=== PATIENT | female | born 1940 | race Caucasian/White ===

== ENCOUNTER 2016-07-07 15:42 | Inpatient (IN) | payer OTHER, MEDICARE ==
[~2016-07-07] VITALS: Ht 162.6 cm; Wt 99.0 kg
[2016-07-07 15:50] VITALS: BP 202/96; PULSE 104; RESP 18; TEMP 97.9; O2SAT 94
--- NOTE | 2016-07-07 16:54 | PD ---
HPI Chief Complaint: Fall Time Seen by Provider: 16:54 Travel History International Travel<30 days: No Contact w/Intl Traveler<30days: No Traveled to known affect area: No History of Present Illness HPI 76-year-old female with history of hypertension and diabetes presents to the emergency department for evaluation following a trip and fall. Patient was walking down her driveway which resulted in incline when she tripped over the hose striking her chin on the ground. Patient did not lose consciousness. She reports chin pain and some mild hand pain. She was assisted to standing by her and son. She had a brief left temporal headache but this is resolved. She has had no episodes of emesis since the incident. No focal deficit or weakness. No chest pain or tightness. Patient has no other symptoms to report. She is uncertain of her tetanus status. [facility] Past Medical History Diabetes: Yes Hypertension: Yes ?: Not Social History Alcohol Use: No Tobacco Use: No Substance Use: No Allergies-Medications (Allergen,Severity, Reaction): Coded Allergies: No Known Allergies (Unverified , 07/07/16) Reported Meds & Prescriptions Reported Meds & Active Scripts Active Reported Aspirin 81 Mg Tabdr 81 Mg PO DAILY Ditropan (Oxybutynin Chloride) 5 Mg Tab 5 Mg PO DAILY Lisinopril 20 Mg Tab 20 Mg PO DAILY Levothyroxine (Levothyroxine Sodium) 125 Mcg Tab 125 Mcg PO DAILY Verapamil (Verapamil HCl) 120 Mg Tab 120 Mg PO TID Glipizide 5 Mg Tab 5 Mg PO HS Take 30 minutes before a meal Glipizide 10 Mg Tab 10 Mg PO DAILY Take 30 minutes before a meal Metformin (Metformin HCl) 500 Mg Tab 500 Mg PO HS With meals Metformin (Metformin HCl) 1,000 Mg Tab 1,000 Mg PO BID With meals Review of Systems Except as stated in HPI: all other systems reviewed are Neg Physical Exam Narrative GENERAL: Well-nourished elderly female patient, ambulatory with a nonantalgic gait, in no acute distress SKIN: Warm and dry. Centimeter in diameter abrasion over the right forehead. There is a small abrasion of the bridge of the nose. There is a 2 cm through and through laceration inferior to the lip. Large hematoma and ecchymosis encompassing the chin. HEAD:Normocephalic. DENTAL: No loose teeth. The left maxillary incisor is chipped on the medial corner. No malocclusion. No tenderness elicited palpation along the mandible. EYES: Pupils equal and round. No scleral icterus. No injection or drainage. ENT: No nasal bleeding or discharge. Mucous membranes pink and moist. NECK: Trachea midline. No JVD. Cervical collar is placed. CARDIOVASCULAR: Regular rate and rhythm. No murmur appreciated. RESPIRATORY: No accessory muscle use. Clear to auscultation. Breath sounds equal bilaterally. GASTROINTESTINAL: Abdomen soft, non-tender, nondistended. Hepatic and splenic margins not palpable. MUSCULOSKELETAL: No obvious deformities. No clubbing. No cyanosis. No edema. NEUROLOGICAL: Awake and alert. No obvious cranial nerve deficits. Motor grossly within normal limits. Normal speech. PSYCHIATRIC: Appropriate mood and affect; insight and judgment normal. Data Data Last Documented VS Vital Signs Date Time Temp Pulse Resp B/P Pulse Ox O2 Delivery O2 Flow Rate FiO2 07/07/16 18:46 86 20 172/89 97 Room Air 07/07/16 15:[address] Brain W/O Iv Contrast(Rout) (07/07/16 ) Ct Facial Bones W/O Iv Cont (07/07/16 ) Ct Cerv Spine W/O Contrast (07/07/16 ) Tetanus/Diphtheria Tox Adult (Tetanus/Di (07/07/16 17:00) Lidocai-Epi 2%-1:100,000 Inj (Xylocaine- (07/07/16 17:00) Basic Metabolic Panel (Bmp) (07/07/16 17:26) Complete Blood Count With Diff (07/07/16 17:26) Prothrombin Time / Inr (Pt) (07/07/16 17:26) Act Partial Throm Time (Ptt) (07/07/16 17:26) Urinalysis - C+S If Indicated (07/07/16 17:26) Iv Access Insert/Monitor (07/07/16 17:26) Ecg Monitoring (07/07/16 17:26) Oximetry (07/07/16 17:26) Sodium Chloride 0.9% Flush (Ns Flush) (07/07/16 17:30) Electrocardiogram (07/07/16 17:26) Consult Neurosurgery (07/07/16 ) Ondansetron Inj (Zofran Inj) (07/07/16 18:15) Urine Culture (07/07/16 17:45) Ceftriaxone Inj (Rocephin Inj) (07/07/16 18:30) Admit Order (Ed Use Only) (07/07/16 19:08) Labs Laboratory Tests Test 07/07/16 17:45 White Blood Count 11.0 TH/MM3 Red Blood Count 4.58 MIL/MM3 Hemoglobin 12.1 GM/DL Hematocrit 37.5 % Mean Corpuscular Volume 81.8 FL Mean Corpuscular Hemoglobin 26.4 PG Mean Corpuscular Hemoglobin 32.3 % Concent Red Cell Distribution Width 15.2 % Platelet Count 264 TH/MM3 Mean Platelet Volume 8.5 FL Neutrophils (%) (Auto) 73.1 % Lymphocytes (%) (Auto) 18.9 % Monocytes (%) (Auto) 6.2 % Eosinophils (%) (Auto) 0.9 % Basophils (%) (Auto) 0.9 % Neutrophils # (Auto) 8.0 TH/MM3 Lymphocytes # (Auto) 2.1 TH/MM3 Monocytes # (Auto) 0.7 TH/MM3 Eosinophils # (Auto) 0.1 TH/MM3 Basophils # (Auto) 0.1 TH/MM3 CBC Comment DIFF FINAL Differential Comment Prothrombin Time 10.9 SEC Prothromb Time International 1.0 RATIO Ratio Activated Partial 24.9 SEC Thromboplast Time Urine Color LIGHT-YELLOW Urine Turbidity CLEAR Urine pH 5.0 Urine Specific [place] 1.009 Urine Protein TRACE mg/dL Urine Glucose (UA) NEG mg/dL Urine Ketones 10 mg/dL Urine Occult Blood NEG Urine Nitrite NEG Urine Bilirubin NEG Urine Urobilinogen LESS THAN 2.0 MG/DL Urine Leukocyte Esterase LARGE Urine RBC 1 /hpf Urine WBC 33 /hpf Urine Squamous Epithelial 1 /hpf Cells Microscopic Urinalysis Comment CULTURE INDICATED Sodium Level 140 MEQ/L Potassium Level 4.0 MEQ/L Chloride Level 104 MEQ/L Carbon Dioxide Level 22.3 MEQ/L Anion Gap 14 MEQ/L Blood Urea Nitrogen 21 MG/DL Creatinine 1.24 MG/DL Estimat Glomerular Filtration 42 ML/MIN Rate Random Glucose 160 MG/DL Calcium Level 9.3 MG/DL [facility] Medical Decision Making Medical Screen Exam Complete: Yes Emergency Medical Condition: Yes Medical Record Reviewed: Yes Differential Diagnosis Facial fracture versus contusion versus laceration superficial versus deep versus intracranial hemorrhage versus concussion Narrative Course 76 year-old female presents to emergency department for evaluation following a fall. Patient appears well and without distress. She has no focal deficits or weakness. She does have a through and through laceration of the chin with significant hematoma over the chin. There is no malocclusion. Neuro exam is nonfocal. CT imaging of the cervical spine shows degenerative changes with no acute bony abnormality. CT imaging of the facial bones is without acute fracture. CT imaging of the head shows acute subarachnoid hemorrhage along without it and extending along the tentorium. Thin 3 mm or 4 mm left temporal or parietal subdural hemorrhage. Follow-up recommended with no evidence of significant mass effect or shift. I discussed the patient with Dr. Rosa, neurosurgeon space systems operations superintendent. He requests admission to the ICU with a consult to him. Dr. Nicholson, trauma surgeon also came and evaluated the patient but does not feel that, surgery needs to follow at this time. A call has been placed to the fire alarm repairer. I am awaiting a return call. [id number] elen saldana. He requests the patient be admitted to [facility]. Procedures Procedure Narrative LACERATION LOCATION: Inferior to the lower lip LENGTH: 2 cm NUMBER OF STITCHES/NADINE: 5 sutures REPAIR: The area of the laceration was prepped with Betadine and sterilely draped. The laceration was infiltrated with 1% lidocaine. The wound was copiously irrigated and explored without evidence of foreign body, tendon injury or neurovascular injury. The wound was closed using 5-0 Vicryl. This was a double layer repair. The patient was advised to keep the dressing clean and dry. Patient tolerated the procedure well. Diagnosis Primary Impression: Subarachnoid bleed Additional Impressions: Subdural bleeding Hypertension Qualified Code: I10 - Essential hypertension Diabetes Qualified Code: E11.8 - Type 2 diabetes mellitus with complication, unspecified moth exterminator insulin use status UTI (urinary tract infection) Qualified Code: N39.0 - Urinary tract infection without hematuria, site unspecified Admitting Information Admitting Physician Requests: Admit Condition: Stable GonzalezTho manriquezizabella SMITH Jul 07, 2016 16:54
[2016-07-07] MEDS ORDERED: LIDOCAINE 2%/EPINEPHrine 1:100,000 30ML MDV INFIL ONE (17:00)
[2016-07-07] MEDS ORDERED: TETANUS/DIPHTHERIA TOXOID ADULT 0.5 ML VIAL IM ONE (17:00)
[2016-07-07 17:05] VITALS: BP 189/89; PULSE 108; RESP 18; O2SAT 97
[2016-07-07] MEDS ORDERED: GLIP10TA6 PO (17:05)
[2016-07-07] MEDS ORDERED: ASPI1TAB69 PO (17:05)
[2016-07-07] MEDS ORDERED: METF1000 PO (17:05)
[2016-07-07] MEDS ORDERED: LISI-515 PO (17:05)
[2016-07-07] MEDS ORDERED: GLIP5TAB8 PO (17:05)
[2016-07-07] MEDS ORDERED: OXYB5TAB10 PO (17:05)
[2016-07-07] MEDS ORDERED: VERA120T3 PO (17:05)
[2016-07-07] MEDS ORDERED: METF500T PO (17:05)
[2016-07-07] MEDS ORDERED: LEVO125T4 PO (17:05)
--- NOTE | 2016-07-07 17:26 | RADRPT ---
EXAM DATE/TIME: 07/07/2016 17:13 [facility] COMPARISON: No previous studies available for comparison. INDICATIONS : Trip and fall today; head, neck, and facial pain. RADIATION DOSE: 32.45 CTDIvol (mGy) MEDICAL HISTORY : Hypertension. SURGICAL HISTORY : None. ENCOUNTER: Initial ACUITY: 1 day PAIN SCALE: 4/10 LOCATION: cranial TECHNIQUE: Multiple contiguous axial images were obtained of the head. Using automated exposure control and adj ustment of the mA and/or kV according to patient size, radiation dose was kept as low as reasonably a chievable to obtain optimal diagnostic quality images. FINDINGS: CEREBRUM: The ventricles are normal for age. No evidence of midline shift, mass lesion or acute infarction. N o extra-axial fluid collections are seen. There is subarachnoid hemorrhage along the falx and extendi ng along the tentorium. Thin crescentic area of increased density hemorrhages noted along the left te mporal parietal region POSTERIOR FOSSA: The cerebellum and brainstem are intact. The 4th ventricle is midline. The cerebellopontine angle i s unremarkable. EXTRACRANIAL: The visualized portion of the orbits is intact. SKULL: The calvaria is intact. No evidence of skull fracture. CONCLUSION: Acute subarachnoid hemorrhage along the falx and extending along the tentorium. Thin 3 or 4 mm left temporal toward parietal subdural hemorrhage acute. Followup recommended no evide nce of significant mass effect or shift. Guy Byers MD on July 07, 2016 at 17:22 Board Certified Radiologist. This report was verified electronically.
[2016-07-07] MEDS ORDERED: SODIUM CHLORIDE 0.9% FLUSH 5 ML FLUSH IVF PRN (17:30)
--- NOTE | 2016-07-07 17:38 | RADRPT ---
EXAM DATE/TIME: 07/07/2016 17:13 [facility] COMPARISON: No previous studies available for comparison. INDICATIONS : Trip and fall today; head, neck, and facial pain. RADIATION DOSE: 24.90 CTDIvol (mGy) MEDICAL HISTORY : Hypertension. SURGICAL HISTORY : None. ENCOUNTER: Initial ACUITY: 1 day PAIN SCALE: 4/10 LOCATION: neck TECHNIQUE: Volumetric scanning of the cervical spine was performed. Multiplanar reconstructions in the sagittal, coronal and oblique axial planes were performed. Using automated exposure control and adjustment o f the mA and/or kV according to patient size, radiation dose was kept as low as reasonably achievable to obtain optimal diagnostic quality images. FINDINGS: There is multilevel degenerative change degenerative disc disease C3-C7 with varying degrees of circu mferential hypertrophic spurring inclusive of uncovertebral hypertrophy as well as posterior central osteophyte disc complexes which are most prominent at C4-7 with relative spinal stenosis. Alignment i s normal with no evidence fracture, compression, subluxation, or destructive change. CONCLUSION: Extensive degenerative changes. No acute bony injury. Guy Byers MD on July 07, 2016 at 17:33 Board Certified Radiologist. This report was verified electronically.
--- NOTE | 2016-07-07 17:41 | RADRPT ---
EXAM DATE/TIME: 07/07/2016 17:13 [facility] COMPARISON: No previous studies available for comparison. INDICATIONS : Trip and fall today; head, neck, and facial pain. RADIATION DOSE: 59.90 CTDIvol (mGy) MEDICAL HISTORY : Hypertension. SURGICAL HISTORY : None. ENCOUNTER: Initial ACUITY: 1 day PAIN SCORE: 4/10 LOCATION: facial TECHNIQUE: Volumetric scanning of the facial bones was performed. Using automated exposure control and adjustme nt of the mA and/or kV according to patient size, radiation dose was kept as low as reasonably achiev able to obtain optimal diagnostic quality images. FINDINGS: ORBITS: The orbital and infraorbital osseous structures are intact. The retroconal structures have a normal configuration. No radiopaque foreign bodies are seen. NASAL BONE: The nasal bone and maxillary spine are intact nasal septum is deviated to the right ZYGOMATIC ARCHES: Symmetric without evidence of fracture. SINUSES: The maxillary, ethmoid and frontal sinuses are intact. No air-fluid levels seen. NASAL CAVITY: The nasal septum is intact and midline. The lacrimal ducts are intact. SOFT TISSUES: No radiopaque foreign bodies seen. Mild soft tissue swelling superficial to the mid and right mandibl e. This. INTRACRANIAL: No intracranial air seen. CRIBIFORM PLATE: Grossly intact. CONCLUSION: No acute bony injury Guy Byers MD on July 07, 2016 at 17:37 Board Certified Radiologist. This report was verified electronically.
[2016-07-07 18:04] LABS: BASOPHIL # 0.1 TH/MM3 (0-0.2); BASOPHIL % 0.9 % (0.0-2.0); EOSINOPHIL # 0.1 TH/MM3 (0-0.4); EOSINOPHIL % 0.9 % (0.0-4.0); HEMATOCRIT 37.5 % (35.0-46.0); HEMO FLAGS DIFF FINAL; LYMPH % 18.9 % (9.0-44.0); LYMPHOCYTE # 2.1 TH/MM3 (1.0-4.8); MEAN CELL VOLUME 81.8 FL (80.0-100.0); MEAN CORPUSCULAR HEMOGLOBIN 26.4 PG (27.0-34.0); MEAN CORPUSCULAR HGB CONC 32.3 % (32.0-36.0); MONO % 6.2 % (0.0-8.0); NEUT % 73.1 % (16.0-70.0); PLATELET COUNT 264 TH/MM3 (150-450); RED BLOOD COUNT 4.58 MIL/MM3 (4.00-5.30); RED CELL DISTRIBUTION WIDTH 15.2 % (11.6-17.2)
--- NOTE | 2016-07-07 18:10 | PD.CONS ---
[facility] Service Neurosurg Consult Requested By Dr Pringle Reason for Consult TBI ICH Primary Care Physician No Primary Care Physician History of Present Illness This is a 76-year-old female with history of arterial hypertension and diabetes , who presents to the emergency department after a trip and fall. She was walking down her driveway which resulted in incline when she tripped over the hose striking her chin on the ground. Patient did not lose consciousness. No seizure activity noted No tongue bitting. No incontinence of stool or urine, She reports chin pain and some mild hand pain. She was assisted by her and son and brought to the ER. She had a left temporal headaches. No nauseas or emesis. No focal deficit or weakness. No chest pain or tightness. No SOB. Neurosurgical consultation requested Review of Systems Constitutional: DENIES: Diaphoretic episodes, Fatigue, Fever, Weight gain, Weight loss, Chills, Dizziness, Change in appetite, Night Sweats Endocrine: DENIES: Abnorml menstrual pattern, Heat/cold intolerance, Polydipsia , Polyuria, Polyphagia Eyes: DENIES: Blurred vision, Diplopia, Eye inflammation, Eye pain, Vision loss , Photosensitivity, Double Vision Ears, nose, mouth, throat: DENIES: Tinnitus, Hearing loss, Vertigo, Nasal discharge, Oral lesions, Throat pain, Hoarseness, Ear Pain, Running Nose, Epistaxis, Sinus Pain, Toothache, Odynophagia Respiratory: DENIES: Apneas, Cough, Snoring, Wheezing, Hemoptysis, Sputum production, Shortness of breath Cardiovascular: DENIES: Chest pain, Palpitations, Syncope, Dyspnea on Exertion , PND, Lower Extremity Edema, Orthopnea, Claudication Gastrointestinal: DENIES: Abdominal pain, Black stools, Bloody stools, Constipation, Diarrhea, Nausea, Vomiting, Difficulty Swallowing, Anorexia Genitourinary: DENIES: Abnormal vaginal bleeding, Dysmenorrhea, Dyspareunia, Sexual dysfunction, Urinary frequency, Urinary incontinence, Urgency, Hematuria , Dysuria, Nocturia, Vaginal discharge Musculoskeletal: DENIES: Joint pain, Muscle aches, Stiffness, Joint Swelling, Back pain, Neck pain Integumentary: DENIES: Abnormal pigmentation, Pruritus, Rash, Nail changes, Breast masses, Breast skin changes, Nipple discharge Hematologic/lymphatic: DENIES: Bruising, Lymphadenopathy Immunologic/allergic: DENIES: Eczema, Urticaria Neurologic: COMPLAINS OF: Headache, DENIES: Abnormal gait, Localized weakness , Paresthesias, Seizures, Speech Problems, Tremor, Poor Balance Psychiatric: DENIES: Anxiety, Confusion, Mood changes, Depression, Hallucinations, Agitation, Suicidal Ideation, Homicidal Ideation, Delusions Past Family Social History Allergies: Coded Allergies: No Known Allergies (Unverified , 07/07/16) Past Medical History Diabetes: Yes Hypertension: Yes Reported Medications Aspirin 81 Mg Tabdr 81 Mg PO DAILY Ditropan (Oxybutynin Chloride) 5 Mg Tab 5 Mg PO DAILY Lisinopril 20 Mg Tab 20 Mg PO DAILY Levothyroxine (Levothyroxine Sodium) 125 Mcg Tab 125 Mcg PO DAILY Verapamil (Verapamil HCl) 120 Mg Tab 120 Mg PO TID Glipizide 5 Mg Tab 5 Mg PO HS Take 30 minutes before a meal Glipizide 10 Mg Tab 10 Mg PO DAILY Take 30 minutes before a meal Metformin (Metformin HCl) 500 Mg Tab 500 Mg PO HS With meals Metformin (Metformin HCl) 1,000 Mg Tab 1,000 Mg PO BID Active Ordered Medications Current Medications Tetanus/ Diphtheria Toxoids (Tetanus/ Diphtheria Tox Adult) 0.5 ml ONCE ONCE IM Last administered on 07/07/16at 18:02; Start 07/07/16 at 17:00; Stop at 17:01; Status DC Lidocaine/ Epinephrine (Xylocaine-Epi 2%-1:100,000 Inj) 10 ml ONCE ONCE INFIL Last administered on 07/07/16at 17:00; Start 07/07/16 at 17:00; Stop 07/07/16 at 17:01; Status DC IV Flush (NS Flush) 2 ml UNSCH PRN IVF FLUSH AFTER USING IV ACCESS; Start at 17:30; Stop 07/07/16 at 19:46; Status DC Ondansetron HCl 4 mg 4 mg ONCE ONCE IV PUSH Last administered on 07/07/16at 18 :21; Start 07/07/16 at 18:15; Stop 07/07/16 at 18:16; Status DC Ceftriaxone Sodium/Sodium Chloride (Rocephin Inj/NS Inj) 100 ml @ 200 mls/hr ONCE ONCE IV Last administered on 07/07/16at 18:45; Start 07/07/16 at 18:30; Stop 07/07/16 at 18:59; Status DC IV Flush (NS Flush) 2 ml UNSCH PRN FLUSH FLUSH AFTER USING IV ACCESS; Start at 19:45 IV Flush (NS Flush) 2 ml BID FLUSH Last administered on 07/07/16at 21:00; Start 07/07/16 at 21:00 Naloxone HCl (Narcan Inj) 0.4 mg UNSCH PRN IV SEE LABEL COMMENTS; Start at 19:45 Levothyroxine Sodium (Synthroid) 125 mcg DAILY@06 PO ; Start 07/08/16 at 06:00 Lisinopril (Prinivil) 20 mg DAILY PO ; Start 07/08/16 at 09:00 Oxybutynin Chloride (Ditropan) 5 mg DAILY PO ; Start 07/08/16 at 09:00 Verapamil HCl (Isoptin) 120 mg TID PO ; Start 07/08/16 at 09:00 Hydralazine HCl (Apresoline Inj) 10 mg Q30M PRN IV PUSH bp>140/80 Last administered on 07/07/16at 21:10; Start 07/07/16 at 20:00 Clonidine (Catapres) 0.1 mg Q6H PRN PO bp>140/80 Last administered on at 21:10; Start 07/07/16 at 20:00 Acetaminophen/ Codeine Phosphate (Tylenol-Codeine #3) 1 tab Q4H PRN PO pain ; Start 07/07/16 at 20:00 Dextrose (D50w (Vial) Inj) 25 ml UNSCH PRN IV PUSH HYPOGLYCEMIA-SEE COMMENTS; Start 07/07/16 at 21:30 Glucagon (Glucagon Inj) 1 mg UNSCH PRN OTHER HYPOGLYCEMIA-SEE COMMENTS; Start 07/07/16 at 21:30 Insulin Aspart (NovoLOG SUPPLEMENTAL SCALE) 1 ACHS SLIDING SCALE SQ Last administered on 07/07/16at 21:47; Start 07/07/16 at 21:29 Family History Non contributory Social History Alcohol Use: No Tobacco Use: No Substance Use: No Physical Exam Vital Signs Vital Signs Date Time Temp Pulse Resp B/P Pulse Ox O2 Delivery O2 Flow Rate FiO2 07/07/16 17:05 108 18 189/89 97 07/07/16 15:50 97.9 104 18 202/96 94 Room Air Physical Exam The patient is alert, awake and oriented to time, place and person. Speech is fluent. Laceration to lower lip Cranial nerve examination demonstrates the pupils to be equal, round, and reactive to light. Extra-ocular movements are intact. Facial motor and sensory function are normal and symmetrical. Gross hearing is decreased. The uvula is midline and elevates symmetrically with the soft palate. Sternocleidomastoid and trapezius muscles have normal and symmetrical strength. Other cranial nerves are intact. Neck is soft and supple. Cervical spine has a good range of motion in anterior flexion, extension, lateral bending, and rotation without pain. There is no tenderness to palpation to the spinous processes or paraspinal muscles. Muscle testing reveals normal bulk and tone overall without rigidity, spasticity , fasciculations, or atrophy. Muscle strength is 5/5 in all muscle groups of both upper extremities including deltoid, biceps, triceps, brachioradialis, wrist extension and photography intern. In the lower extremities, strength is 5/5 in both iliopsoas, quadriceps, hamstrings, plantar flexion, dorsiflexion, and extensor hallicus longus. Sensory examination is intact to light touch and sharp/dull discrimination in both the upper and lower extremities, symmetrically. Deep tendon reflexes are 2+ and symmetrical in the biceps, triceps, and brachioradialis, bilaterally, in the upper extremities. In the lower extremities , the patellar and Achilles are 2+, bilaterally. There is a bilateral plantar flexion response. Hoffmanns sign is negative. There is no clonus or other abnormal reflexes noted. Cerebellar examination is intact to [id number] test, rapid rhythmic alternating motion. There is no dysmetria, dysdiadochokinesia, truncal ataxia, or tremor. Laboratory Laboratory Tests Test 07/07/16 17:45 White Blood Count 11.0 Red Blood Count 4.58 Hemoglobin 12.1 Hematocrit 37.5 Mean Corpuscular Volume 81.8 Mean Corpuscular Hemoglobin 26.4 Mean Corpuscular Hemoglobin 32.3 Concent Red Cell Distribution Width 15.2 Platelet Count 264 Mean Platelet Volume 8.5 Neutrophils (%) (Auto) 73.1 Lymphocytes (%) (Auto) 18.9 Monocytes (%) (Auto) 6.2 Eosinophils (%) (Auto) 0.9 Basophils (%) (Auto) 0.9 Neutrophils # (Auto) 8.0 Lymphocytes # (Auto) 2.1 Monocytes # (Auto) 0.7 Eosinophils # (Auto) 0.1 Basophils # (Auto) 0.1 CBC Comment DIFF FINAL Differential Comment Result Diagram: 07/07/16 1745 Imaging Last Impressions Maxillofacial CT 07/07/16 0000 Signed Impressions: Service Date/Time: Thursday, July 07, 2016 17:13 - CONCLUSION: No acute bony injury Guy Byers MD Head CT 07/07/16 0000 Signed Impressions: Service Date/Time: Thursday, July 07, 2016 17:13 - CONCLUSION: Acute subarachnoid hemorrhage along the falx and extending along the tentorium. Thin 3 or 4 mm left temporal toward parietal subdural hemorrhage acute. Followup recommended no evidence of significant mass effect or shift. Guy Byers MD Cervical Spine CT 07/07/16 0000 Signed Impressions: Service Date/Time: Thursday, July 07, 2016 17:13 - CONCLUSION: Extensive degenerative changes. No acute bony injury. Guy Byers MD Attending Statement Neuro. I have reviewed his clinical and radiological findings. Start neuro checks in a serial fashion. A placement of a ICP monitoring is not indicated at this time Recommend to repeat the CT of the brain in 24 hours Laceration. To be repaired by ER physician Respiratory. Aggressive pulmonary toilette, nasotracheal suction, and breathing treatments with nebulizers. PT and OT evaluation Nutrition. NPO Renal. monitor closely urine output, BUN and creatinine Endocrine. Monitor serial Acu checks and SSI as needed in detail ID monitor for signs of infection Protonix for stress ulcer prophylaxis Fco hose and SCD's for DVT prophylaxis Joe Rosa MD Jul 07, 2016 18:10
[2016-07-07 18:13] LABS: BLOOD, URINE NEG (NEG); COMMENT (UR) CULTURE INDICATED; CULTURE IF INDICATED CULTURE INDICATED; GLUCOSE,URINE NEG (NEG); KETONE, URINE 10 mg/dL (NEG); NITRITE,URINE NEG (NEG); SQUAMOUS EPITHELIAL CELL URINE 1 /hpf (0-5); URINE COLOR LIGHT-YELLOW (YELLW/STRAW)
[2016-07-07] MEDS ORDERED: ONDANSETRON HCL 4 MG/2 ML VIAL IV PUSH ONE (18:15)
[2016-07-07 18:17] LABS: APTT (PATIENT) 24.9 SEC (24.3-30.1); PROTHROMBIN TIME - PATIENT 10.9 SEC (9.8-11.6)
[2016-07-07] MEDS ORDERED: cefTRIAXone INJ 1,000 MG in SODIUM CHLORIDE 0.9% INJ 100 ML IV ONE (18:30)
[2016-07-07 18:35] LABS: BICARBONATE 22.3 MEQ/L (21.0-32.0)
[2016-07-07 18:46] VITALS: BP 172/89; PULSE 86; RESP 20; O2SAT 97
[2016-07-07] MEDS ORDERED: SODIUM CHLORIDE 0.9% FLUSH 5 ML FLUSH FLUSH PRN (19:45)
[2016-07-07] MEDS ORDERED: NALOXONE HCL 0.4 MG/ML AMP IV PRN (19:45)
[2016-07-07] MEDS ORDERED: ACETAMINOPHEN/CODEINE 300 MG/30 MG TAB PO PRN (20:00)
[2016-07-07 21:00] VITALS: BP 185/76; PULSE 91; RESP 18; O2SAT 96
[2016-07-07] MEDS: SODIUM CHLORIDE 0.9% FLUSH 5 ML FLUSH FLUSH SCH (21:00)
[2016-07-07] MEDS: hydrALAZINE HCL 20 MG/ML VIAL IV PUSH PRN (21:10)
[2016-07-07] MEDS: cloNIDine HCL 0.1 MG TAB PO PRN (21:10)
--- NOTE | 2016-07-07 21:24 | HHI.HP ---
[facility] Primary Care Physician No Primary Care Physician Admission Diagnosis SAH/SDH s/p fall; Chin laceration Diagnoses: Chief Complaint: Fell down Travel History International Travel<30 Days: No Contact w/Intl Traveler <30 Da: No Traveled to Known Affected Are: No History of Present Illness History from patient with her at the bedside, ER physician communication , and review of medical records. Patient reported that she was trying to walk her dog and taking him to the golf cart in her backyard. As she was walking, she tripped over a water hose and she fell face forward landing on the concrete with her chin. She denies loss of consciousness. She denies hitting her back of the head. However she did hit her chin pretty badly and had a bruise on her right eyebrow area. She denies any premonitory symptoms prior to the fall such as chest pain/ palpitations/dizziness/focal weakness. She denies any prior history of syncopal episodes. In the emergency room, patient's imaging studies revealed subarachnoid hemorrhage along the falx and extending along the tentorium. There was a thin 3 or 4 mm left temporal to what prior subdural hemorrhage as well. Patient was evaluated by neurosurgery in ER. Review of Systems Constitutional: DENIES: Fever, Weight gain, Weight loss, Chills, Dizziness Respiratory: DENIES: Apneas, Cough, Wheezing, Hemoptysis, Sputum production, Shortness of breath Cardiovascular: DENIES: Chest pain, Palpitations, Syncope, Dyspnea on Exertion , PND, Lower Extremity Edema Gastrointestinal: DENIES: Abdominal pain, Black stools, Bloody stools, Constipation, Diarrhea, Nausea, Vomiting Genitourinary: DENIES: Urinary frequency, Urinary incontinence, Urgency, Hematuria, Dysuria Musculoskeletal: COMPLAINS OF: Joint pain, DENIES: Muscle aches, Stiffness, Joint Swelling, Back pain, Neck pain Integumentary: DENIES: Abnormal pigmentation, Pruritus, Rash, Nail changes, Breast masses, Breast skin changes, Nipple discharge Hematologic/lymphatic: COMPLAINS OF: Bruising Neurologic: DENIES: Abnormal gait, Headache, Localized weakness, Paresthesias, Seizures, Poor Balance Past Family Social History Past Medical History Hypertension Diabetes Hypothyroidism Obesity Past Surgical History 2 Reported Medications Patient's medications listed on EMRreviewed patient stated that someone did go through that with her. Allergies: Coded Allergies: No Known Allergies (Unverified , 07/07/16) Family History Denies family history of any medical conditions. She stated her mom actually lived to be in her 90s. actually after a fall which resulted in intracranial bleed. She has 5 other siblings. One sister had multiple medical issues. However patient does not know the details and mostly attributed her diseases to her lifestyle. Social History Denies any smoking/alcohol abuse/drug abuse. Lives with her . Physical Exam Vital Signs Vital Signs Date Time Temp Pulse Resp B/P Pulse Ox O2 Delivery O2 Flow Rate FiO2 07/07/16 18:46 86 20 172/89 97 Room Air 07/07/16 17:05 108 18 189/89 97 07/07/16 15:50 97.9 104 18 202/96 94 Room Air Physical Exam GENERAL: This is a well-nourished, well-developed patient, in no apparent distress. SKIN: Superficial ecchymosis at chin on the right side. Right eyebrow area with skin laceration. HEAD: Atraumatic. Normocephalic. No temporal or scalp tenderness. EYES: Pupils equal round and reactive. Extraocular motions intact. No scleral icterus. No injection or drainage. ENT: Nose without bleeding, purulent drainage or septal hematoma. Airway patent. Lips swollen. NECK: Trachea midline. No JVD Supple, nontender, no meningeal signs. CARDIOVASCULAR: Regular rate and rhythm without murmurs, gallops, or rubs. RESPIRATORY: Clear to auscultation. Breath sounds equal bilaterally. No wheezes , rales, or rhonchi. GASTROINTESTINAL: Abdomen soft, non-tender, nondistended.No guarding Musculoskeletal: No calf asymmetry or edema. NEUROLOGICAL: Awake and alert. Motor and sensory grossly within normal limits. Normal speech. Laboratory Laboratory Tests Test 07/07/16 17:45 White Blood Count 11.0 Red Blood Count 4.58 Hemoglobin 12.1 Hematocrit 37.5 Mean Corpuscular Volume 81.8 Mean Corpuscular Hemoglobin 26.4 Mean Corpuscular Hemoglobin 32.3 Concent Red Cell Distribution Width 15.2 Platelet Count 264 Mean Platelet Volume 8.5 Neutrophils (%) (Auto) 73.1 Lymphocytes (%) (Auto) 18.9 Monocytes (%) (Auto) 6.2 Eosinophils (%) (Auto) 0.9 Basophils (%) (Auto) 0.9 Neutrophils # (Auto) 8.0 Lymphocytes # (Auto) 2.1 Monocytes # (Auto) 0.7 Eosinophils # (Auto) 0.1 Basophils # (Auto) 0.1 CBC Comment DIFF FINAL Differential Comment Prothrombin Time 10.9 Prothromb Time International 1.0 Ratio Activated Partial 24.9 Thromboplast Time Urine Color LIGHT-YELLOW Urine Turbidity CLEAR Urine pH 5.0 Urine Specific [place] 1.009 Urine Protein TRACE Urine Glucose (UA) NEG Urine Ketones 10 Urine Occult Blood NEG Urine Nitrite NEG Urine Bilirubin NEG Urine Urobilinogen LESS THAN 2.0 Urine Leukocyte Esterase LARGE Urine RBC 1 Urine WBC 33 Urine Squamous Epithelial 1 Cells Microscopic Urinalysis Comment CULTURE INDICATED Sodium Level 140 Potassium Level 4.0 Chloride Level 104 Carbon Dioxide Level 22.3 Anion Gap 14 Blood Urea Nitrogen 21 Creatinine 1.24 Estimat Glomerular Filtration 42 Rate Random Glucose 160 Calcium Level 9.3 Date/Time Procedure Status Source Growth 07/07/16 17:45 Urine Culture Received Urine Clean Catch Pending Result Diagram: 07/07/16 1745 07/07/16 1745 Imaging Last [address] 07/07/16 0000 Signed Impressions: Service Date/Time: Thursday, July 07, 2016 17:13 - CONCLUSION: No acute bony injury Guy Byers MD Head CT 07/07/16 0000 Signed Impressions: Service Date/Time: Thursday, July 07, 2016 17:13 - CONCLUSION: Acute subarachnoid hemorrhage along the falx and extending along the tentorium. Thin 3 or 4 mm left temporal toward parietal subdural hemorrhage acute. Followup recommended no evidence of significant mass effect or shift. Guy Byers MD Cervical Spine CT 07/07/16 0000 Signed Impressions: Service Date/Time: Thursday, July 07, 2016 17:13 - CONCLUSION: Extensive degenerative changes. No acute bony injury. Guy Byers MD Physician Certification 2 Midnight Certification Type: Admission for Inpatient Services Order for Inpatient Services The services are ordered in accordance with Medicare regulations or non- Medicare payer requirements, as applicable. In the case of services not specified as inpatient-only, they are appropriately provided as inpatient services in accordance with the 2-midnight benchmark. Estimated LOS (days): 3 days is the estimated time the patient will need to remain in the hospital, assuming treatment plan goals are met and no additional complications. Post-Hospital Plan: Home Lady Pringle MD Jul 07, 2016 21:24
[2016-07-07] MEDS ORDERED: DEXTROSE 50% IN WATER 50 ML VIAL(D50) IV PUSH PRN (21:30)
[2016-07-07] MEDS ORDERED: GLUCAGON 1 MG/ML VIAL OTHER PRN (21:30)
[2016-07-07 21:38] VITALS: BP 116/72; PULSE 87; RESP 18; O2SAT 97
[2016-07-07] MEDS: INSULIN ASPART SUPPLEMENTAL SCALE SQ SCH (21:47)
[2016-07-08] VITALS (13 sets, daily range): BP systolic 129–151; BP diastolic 59–66; PULSE 75–95; RESP 22–29; TEMP 97.9–98.6; O2SAT 90–97
[2016-07-08 04:28] LABS: AUTOMATED NEUTROPHIL # 5.1 TH/MM3 (1.8-7.7); BASOPHIL % 0.3 % (0.0-2.0); EOSINOPHIL % 0.2 % (0.0-4.0); HEMATOCRIT 32.5 % (35.0-46.0); HEMO FLAGS DIFF FINAL; LYMPH % 19.5 % (9.0-44.0); LYMPHOCYTE # 1.4 TH/MM3 (1.0-4.8); MEAN CELL VOLUME 80.5 FL (80.0-100.0); MEAN CORPUSCULAR HEMOGLOBIN 25.7 PG (27.0-34.0); MONO % 8.9 % (0.0-8.0); NEUT % 71.1 % (16.0-70.0); PLATELET COUNT 203 TH/MM3 (150-450); RED BLOOD COUNT 4.04 MIL/MM3 (4.00-5.30); RED CELL DISTRIBUTION WIDTH 15.2 % (11.6-17.2); WHITE BLOOD COUNT 7.2 TH/MM3 (4.0-11.0)
[2016-07-08 04:49] LABS: BICARBONATE 25.4 MEQ/L (21.0-32.0); POTASSIUM 4.1 MEQ/L (3.5-5.1)
[2016-07-08] MEDS: LEVOTHYROXINE SODIUM 125 MCG TAB PO SCH (06:00)
[2016-07-08] MEDS: INSULIN ASPART SUPPLEMENTAL SCALE SQ SCH ×4 (06:15→20:14)
[2016-07-08] MEDS: LISINOPRIL 20 MG TAB PO SCH (08:45)
[2016-07-08] MEDS: OXYBUTYNIN CHLORIDE 5 MG TAB PO SCH (08:45)
[2016-07-08] MEDS: VERAPAMIL HCL 120 MG TAB PO SCH ×3 (08:45→17:26)
[2016-07-08] MEDS: SODIUM CHLORIDE 0.9% FLUSH 5 ML FLUSH FLUSH SCH ×2 (09:00→20:14)
--- NOTE | 2016-07-08 11:41 | EKG ---
Date Performed: 07/07/2016 Time Performed: 18:02:41 PTAGE: 76 years EKG: Sinus rhythm NORMAL ECG NO PREVIOUS TRACING DOCTOR: Tani Tyson Interpretating Date/Time 07/08/2016 11:38:58
--- NOTE | 2016-07-08 11:59 | RADRPT ---
EXAM DATE/TIME: 07/08/2016 10:53 [place] COMPARISON: CT BRAIN W/O CONTRAST, July 07, 2016, 17:13. INDICATIONS : Evaluate bleed RADIATION DOSE: 45.82 CTDIvol (mGy) MEDICAL HISTORY : Cardiovascular disease. Hypertension. Diabetes mellitus type 1. SURGICAL HISTORY : None. ENCOUNTER: Initial ACUITY: 1 day PAIN SCALE: 4/10 LOCATION: cranial TECHNIQUE: Multiple contiguous axial images were obtained of the head. Using automated exposure control and adj ustment of the mA and/or kV according to patient size, radiation dose was kept as low as reasonably a chievable to obtain optimal diagnostic quality images. FINDINGS: CEREBRUM: Ventricles are normal in size and stable. There is mild periventricular white matter low attenuation. There are acute blood products in the midline along the falx cerebri and extending along the left te ntorium cerebelli. The midline blood products measure up to a maximum of 14 mm in thickness compared to 9 mm previously. There is also an acute left frontal region subdural hematoma measuring up to a ma ximal thickness of 7 mm, stable from the prior study. No evidence of mass lesion, or acute infarctio n. There is stable 3 mm of left to right midline shift. No extra-axial fluid collections are seen. POSTERIOR FOSSA: The cerebellum and brainstem demonstrate no acute finding. The 4th ventricle is midline. The cerebe llopontine angle is unremarkable. EXTRACRANIAL: Visualized sinuses are clear. SKULL: The calvaria is intact. No evidence of skull fracture. CONCLUSION: 1. Interval increase in the amount of blood products in the interhemispheric fissure and along the le ft tentorium cerebelli. These measure up to maximal thickness of 14 mm compared to 9 mm previously. 2. Stable left frontal acute subdural hematoma measuring up to maximal thickness of [address] able 3 mm of left to right midline shift. Chin Bradford MD on July 08, 2016 at 11:53 Board Certified Radiologist. This report was verified electronically.
--- NOTE | 2016-07-08 13:35 | HHI.CCPN ---
Subjective Brief History 76-year-old female with history of hypertension and diabetes presents to the emergency department for evaluation following a trip and fall. Patient was walking down her driveway which resulted in incline when she tripped over the hose striking her chin on the ground. Patient did not lose consciousness. She reports chin pain and some mild hand pain. She was assisted to standing by her and son. She had a brief left temporal headache but this is resolved. She has had no episodes of emesis since the incident. No focal deficit or weakness. No chest pain or tightness. Patient underwent full workup and was found to have subarachnoid hemorrhage mainly alongside the falx cerebri. Patient was initially admitted to medicine but transfer today to trauma service and she'll remain on the same 24 Hour Review/Hospital Course 07/08/16 Patient is awake alert and oriented neurologically fully intact Large bruise over the chin some bruising over the face Patient underwent repeat CAT scan of the brain which reveals increased amount of blood over the falx cerebri and subarachnoid space but no neurologic compromise or significant shift Patient will remain in the ICU for observation Discussed with Dr. Rosa Objective Vital Signs Date Time Temp Pulse Resp B/P Pulse Ox O2 Delivery O2 Flow Rate FiO2 07/08/16 10:00 93 07/08/16 08:00 97.9 26 129/60 97 07/08/16 07:00 Room Air Result Diagram: 07/08/16 0332 07/08/16 0332 Imaging Last [address] 07/08/16 0000 Signed Impressions: Service Date/Time: June 10:53 - CONCLUSION: 1. Interval increase in the amount of blood products in the interhemispheric fissure and along the left tentorium cerebelli. These measure up to maximal thickness of 14 mm compared to 9 mm previously. 2. Stable left frontal acute subdural hematoma measuring up to maximal thickness of 7 mm. There is stable 3 mm of left to right midline shift. Chin Bradford MD Exam [employer]PER[employer] Patient is awake alert oriented with normal neurologic function and no neurologic deficit No lateralization [place] Coma Scale is 15 CT of the brain reveals increased amount of blood in the area which is to be expected but no compression or space occupying symptoms Hemodynamic/Cardiac Hemodynamically stable Pulmonary/Respiratory Bilateral good breath sounds Abdomen/GI Nutrition Abdomen is soft active bowel sounds and patient is on ADA diet Renal/I&O Good urine output Assessment and Plan Plan We will continue observation in the ICU and repeat another CAT scan tomorrow to follow the bleeding profile Patient was not on any anticoagulants or platelet inhibitors at home and she'll remain so here The exam, history, and the medical decision-making described in the above note were completed with the assistance of the mid-level provider. I reviewed and agree with the findings presented. I attest that I had a [id number] encounter with the patient on the same day, and personally performed and documented my assessment and findings in the medical record. Critical care time 40 minutes. Tung Thomas MD Jul 08, 2016 13:35
[2016-07-08] MEDS: levETIRAcetam 500 MG TAB PO SCH ×2 (17:26→20:14)
--- NOTE | 2016-07-08 19:43 | HHI.PR ---
Subjective Remarks Patient seen and examined earlier today She is awake alert oriented, laying comfortably in bed, neurological exam normal no symptoms She has a bruise on her chin, on face She is afebrile no short of breath or chest pain Objective Vitals Vital Signs Date Time Temp Pulse Resp B/P Pulse Ox O2 Delivery O2 Flow Rate FiO2 07/08/16 18:00 83 07/08/16 16:00 75 07/08/16 16:00 98.6 76 26 138/63 90 07/08/16 14:00 90 07/08/16 12:00 98.4 76 29 132/59 97 07/08/16 12:00 95 07/08/16 10:00 93 07/08/16 08:00 97.9 94 26 129/60 97 07/08/16 08:00 94 07/08/16 07:00 96 Room Air 07/08/16 06:00 89 07/08/16 04:00 98.6 82 22 151/66 95 07/08/16 04:00 89 07/08/16 02:00 95 07/08/16 00:00 95 07/08/16 00:00 98.4 95 23 145/64 93 07/07/16 21:38 87 18 116/72 97 Room Air 07/07/16 21:00 91 18 185/76 96 Room Air I/O 07/07/16 07/07/16 07/07/16 07/08/16 07/08/16 07/08/16 07:00 15:00 23:00 07:00 15:00 23:00 Intake Total 460 ml 800 ml Output Total 1300 ml 1800 ml Balance -840 ml -1000 ml Intake Oral 460 ml 800 ml IV Total 0 ml Output Urine Total 1300 ml 1800 ml Stool Total 0 ml 0 ml Result Diagram: 07/08/16 0332 07/08/16 0332 Imaging Last Impressions Head CT 07/08/16 0000 Signed Impressions: Service Date/Time: June 10:53 - CONCLUSION: 1. Interval increase in the amount of blood products in the interhemispheric fissure and along the left tentorium cerebelli. These measure up to maximal thickness of 14 mm compared to 9 mm previously. 2. Stable left frontal acute subdural hematoma measuring up to maximal thickness of 7 mm. There is stable 3 mm of left to right midline shift. Chin Bradford MD Maxillofacial CT 07/07/16 0000 Signed Impressions: Service Date/Time: Thursday, July 07, 2016 17:13 - CONCLUSION: No acute bony injury Guy Byers MD Cervical Spine CT 07/07/16 0000 Signed Impressions: Service Date/Time: Thursday, July 07, 2016 17:13 - CONCLUSION: Extensive degenerative changes. No acute bony injury. Guy Byers MD Objective Remarks GENERAL: This is a well-nourished, well-developed patient, in no apparent distress. SKIN: Multiple bruises on the face on the chin HEAD: Normocephalic. EYES: Pupils equal round and reactive. Extraocular motions intact. No scleral icterus. ENT: Nose without bleeding, or drainage, Airway patent. NECK: Trachea midline. Supple CARDIOVASCULAR: Regular rate and rhythm without murmurs, gallops, or rubs. RESPIRATORY: Fair air entry bilaterally. No wheezes, rales, or rhonchi. GASTROINTESTINAL: Abdomen soft, non-tender, nondistended. Positive bowel sounds MUSCULOSKELETAL: Extremities without clubbing, cyanosis, or edema. Pedal pulses appreciated NEUROLOGICAL: Awake and alert. Moves all extremity. Normal speech.no focal neurological deficit A/P Assessment and Plan 76 years old female status post fall -Acute ICH Today with worsening bleeding on CT scan which showed Interval increase in the amount of blood products in the interhemispheric issure and along the left tentorium cerebelli. These measure up to maximal thickness of 14 mm compared to 9 mm previously. 2. Stable left frontal acute subdural hematoma measuring up to maximal thickness of 7 mm. 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 -No chemical DVT prophylaxis due to ICH, SCD only Magdi Lunsford MD Jul 08, 2016 19:43
--- NOTE | 2016-07-08 20:43 | HHI.NSPN ---
(Casandra Varghese) Note Status Status: Progress Note (Casandra Varghese) Interval History Interval History This is a 76-year-old female with history of arterial hypertension and diabetes , who presents to the emergency department after a trip and fall. She was walking down her driveway which resulted in incline when she tripped over the hose striking her chin on the ground. Patient did not lose consciousness. No seizure activity noted No tongue bitting. No incontinence of stool or urine, She reports chin pain and some mild hand pain. She was assisted by her and son and brought to the ER. She had a left temporal headaches. No nauseas or emesis. No focal deficit or weakness. No chest pain or tightness. No SOB. Neurosurgical consultation requested 07/08: pain to chin and area of trauma, denies focal weakness, vomiting, seizures, or changes in mental status. (Casandra Varghese) Labs, Micro, & Vital Signs Results Date Time Temp Pulse Resp B/P Pulse Ox O2 Delivery O2 Flow Rate FiO2 07/08/16 10:00 93 07/08/16 08:00 97.9 94 26 129/60 97 07/08/16 08:00 94 07/08/16 07:00 96 Room Air 07/08/16 06:00 89 07/08/16 04:00 98.6 82 22 151/66 95 07/08/16 04:00 89 07/08/16 02:00 95 07/08/16 00:00 95 07/08/16 00:00 98.4 95 23 145/64 93 07/07/16 21:38 87 18 116/72 97 Room Air 07/07/16 21:00 91 18 185/76 96 Room Air 07/07/16 18:46 86 20 172/89 97 Room Air 07/07/16 17:05 108 18 189/89 97 07/07/16 15:50 97.9 104 18 202/96 94 Room Air 07/08/16 07:00 Intake Total 460 ml Output Total 1300 ml Balance -840 ml Constitutional Vital Signs Date Time Temp Pulse Resp B/P Pulse Ox O2 Delivery O2 Flow Rate FiO2 07/08/16 10:00 93 07/08/16 08:00 97.9 94 26 129/60 97 07/08/16 08:00 94 07/08/16 07:00 96 Room Air 07/08/16 06:00 89 07/08/16 04:00 98.6 82 22 151/66 95 07/08/16 04:00 89 07/08/16 02:00 95 07/08/16 00:00 95 07/08/16 00:00 98.4 95 23 145/64 93 07/07/16 21:38 87 18 116/72 97 Room Air 07/07/16 21:00 91 18 185/76 96 Room Air 07/07/16 18:46 86 20 172/89 97 Room Air 07/07/16 17:05 108 18 189/89 97 07/07/16 15:50 97.9 104 18 202/96 94 Room Air 07/08/16 07:00 Intake Total 460 ml Output Total 1300 ml Balance -840 ml (Casandra Varghese) Review of Systems/Exam Exam The patient is alert, awake and oriented to time, place and person. Speech is appropriate Cranial nerve examination demonstrates the pupils to be equal, round, and reactive to light. Extra-ocular movements are intact. Facial motor are normal and symmetrical. Sternocleidomastoid and trapezius muscles have normal and symmetrical strength. Other cranial nerves are intact. Neck is soft and supple. Large ecchymoses to her chin Muscle strength is 5/5 in all muscle groups of both upper extremities including deltoid, biceps, triceps, and deputy coroner. In the lower extremities, strength is 5/5 in both iliopsoas, quadriceps, hamstrings, plantar flexion, dorsiflexion Sensory examination is intact to light touch in both the upper and lower extremities, symmetrically. Cerebellar examination is intact to [id number] test (Casandra Varghese) Medications Current Medications Current Medications Medications (Trade) Dose Ordered Sig/Javier Route PRN Reason Start Time Stop Time Status Last Admin Dose Admin IV Flush (NS Flush) 2 ml UNSCH PRN FLUSH FLUSH AFTER USING IV ACCESS 07/07/16 19:45 IV Flush (NS Flush) 2 ml BID FLUSH 07/07/16 21:00 07/08/16 09:00 Naloxone HCl (Narcan Inj) 0.4 mg UNSCH PRN IV SEE LABEL COMMENTS 07/07/16 19:45 Levothyroxine Sodium (Synthroid) 125 mcg DAILY@06 PO 07/08/16 06:00 07/08/16 06:00 Lisinopril (Prinivil) 20 mg DAILY PO 07/08/16 09:00 07/08/16 08:45 Oxybutynin Chloride (Ditropan) 5 mg DAILY PO 07/08/16 09:00 07/08/16 08:45 Verapamil HCl (Isoptin) 120 mg TID PO 07/08/16 09:00 07/08/16 13:00 Hydralazine HCl (Apresoline Inj) 10 mg Q30M PRN IV PUSH bp>140/80 07/07/16 20:00 07/07/16 21:10 Clonidine (Catapres) 0.1 mg Q6H PRN PO bp>140/80 07/07/16 20:00 07/07/16 21:10 Acetaminophen/ Codeine Phosphate (Tylenol-Codeine #3) 1 tab Q4H PRN PO pain 07/07/16 20:00 Dextrose (D50w (Vial) Inj) 25 ml UNSCH PRN IV PUSH HYPOGLYCEMIA-SEE COMMENTS 07/07/16 21:30 Glucagon (Glucagon Inj) 1 mg UNSCH PRN OTHER HYPOGLYCEMIA-SEE COMMENTS 07/07/16 21:30 Levetriacetam (Keppra) 500 mg Q12HR PO 07/08/16 13:45 (Casandra Varghese) Medical Decision Making MDM Remarks 76 y/o female s/p fall, tentorial subdural hematoma, left frontal SDH nonfocal neuro exam follow up CT Brain this am, slight increase in tentorial bleed with slight midline shift, stable left frontal SDH (Casandra Varghese) Plan Plan Remarks reviewed f/u CT Head continue nonsurgical management cont neuro checks in ISC nonchemical DVT prophylaxis in view of ICH (Casandra Varghese) Attending Statement The exam, history, and the medical decision-making described in the above note were completed with the assistance of the mid-level provider. I reviewed and agree with the findings presented. I attest that I had a [id number] encounter with the patient on the same day, and personally performed and documented my assessment and findings in the medical record. (Joe Rosa MD) Casandra Varghese Jul 08, 2016 16:46 Joe Rosa MD Jul 17, 2016 10:04
[2016-07-09] VITALS (12 sets, daily range): BP systolic 137–159; BP diastolic 65–73; PULSE 66–88; RESP 19–29; TEMP 98.3–98.7; O2SAT 96–99
[2016-07-09 04:44] LABS: AUTOMATED NEUTROPHIL # 3.3 TH/MM3 (1.8-7.7); BASOPHIL % 0.4 % (0.0-2.0); EOSINOPHIL # 0.1 TH/MM3 (0-0.4); HEMATOCRIT 31.2 % (35.0-46.0); HEMO FLAGS DIFF FINAL; LYMPH % 33.6 % (9.0-44.0); LYMPHOCYTE # 2.1 TH/MM3 (1.0-4.8); MEAN CELL VOLUME 80.6 FL (80.0-100.0); MEAN CORPUSCULAR HEMOGLOBIN 26.1 PG (27.0-34.0); MEAN CORPUSCULAR HGB CONC 32.4 % (32.0-36.0); MONO % 10.5 % (0.0-8.0); NEUT % 54.5 % (16.0-70.0); PLATELET COUNT 193 TH/MM3 (150-450); RED BLOOD COUNT 3.87 MIL/MM3 (4.00-5.30); RED CELL DISTRIBUTION WIDTH 15.2 % (11.6-17.2); WHITE BLOOD COUNT 6.1 TH/MM3 (4.0-11.0)
[2016-07-09] MEDS: LEVOTHYROXINE SODIUM 125 MCG TAB PO SCH (05:08)
[2016-07-09] MEDS: INSULIN ASPART SUPPLEMENTAL SCALE SQ SCH ×4 (06:17→20:20)
[2016-07-09] MEDS: CEFEPIME INJ 1,000 MG in SODIUM CHLORIDE 0.9% INJ 100 ML IV SCH ×2 (08:00→20:28)
[2016-07-09] MEDS: levETIRAcetam 500 MG TAB PO SCH ×2 (08:37→20:20)
[2016-07-09] MEDS: SODIUM CHLORIDE 0.9% FLUSH 5 ML FLUSH FLUSH SCH ×2 (08:37→20:20)
[2016-07-09] MEDS: OXYBUTYNIN CHLORIDE 5 MG TAB PO SCH (08:37)
[2016-07-09] MEDS: LISINOPRIL 20 MG TAB PO SCH (08:37)
[2016-07-09] MEDS: VERAPAMIL HCL 120 MG TAB PO SCH ×3 (08:37→16:42)
--- NOTE | 2016-07-09 09:13 | HHI.NSPN ---
(Casandra Varghese) Note Status Status: Progress Note (Casandra Varghese) Interval History Interval History This is a 76-year-old female with history of arterial hypertension and diabetes , who presents to the emergency department after a trip and fall. She was walking down her driveway which resulted in incline when she tripped over the hose striking her chin on the ground. Patient did not lose consciousness. No seizure activity noted No tongue bitting. No incontinence of stool or urine, She reports chin pain and some mild hand pain. She was assisted by her and son and brought to the ER. She had a left temporal headaches. No nauseas or emesis. No focal deficit or weakness. No chest pain or tightness. No SOB. Neurosurgical consultation requested 07/08: pain to chin and area of trauma, denies focal weakness, vomiting, seizures, or changes in mental status. 07/09: c/o moderate headaches, no N/V, no changes in sensorimotor function, eating breakfast and tolerating her food (Casandra Varghese) Labs, Micro, & Vital Signs Results Date Time Temp Pulse Resp B/P Pulse Ox O2 Delivery O2 Flow Rate FiO2 07/09/16 06:00 74 07/09/16 04:00 72 07/09/16 04:00 98.7 72 22 143/67 99 07/09/16 02:00 68 07/09/16 00:00 98.7 66 20 137/65 98 07/09/16 00:00 66 07/08/16 22:00 75 07/08/16 20:00 81 07/08/16 20:00 98.2 80 27 130/63 94 07/08/16 19:00 94 Nasal Cannula 2.00 07/08/16 18:00 83 07/08/16 16:00 75 07/08/16 16:00 98.6 76 26 138/63 90 07/08/16 14:00 90 07/08/16 12:00 98.4 76 29 132/59 97 07/08/16 12:00 95 07/08/16 10:00 93 07/09/16 06:59 Intake Total 2000 ml Output Total 4450 ml Balance -2450 ml Constitutional Vital Signs Date Time Temp Pulse Resp B/P Pulse Ox O2 Delivery O2 Flow Rate FiO2 07/09/16 06:00 74 07/09/16 04:00 72 07/09/16 04:00 98.7 72 22 143/67 99 07/09/16 02:00 68 07/09/16 00:00 98.7 66 20 137/65 98 07/09/16 00:00 66 07/08/16 22:00 75 07/08/16 20:00 81 07/08/16 20:00 98.2 80 27 130/63 94 07/08/16 19:00 94 Nasal Cannula 2.00 07/08/16 18:00 83 07/08/16 16:00 75 07/08/16 16:00 98.6 76 26 138/63 90 07/08/16 14:00 90 07/08/16 12:00 98.4 76 29 132/59 97 07/08/16 12:00 95 07/08/16 10:00 93 07/09/16 06:59 Intake Total 2000 ml Output Total 4450 ml Balance -2450 ml (Casandra Varghese) Review of Systems/Exam Exam Ms. Keen is alert, awake and oriented to time, place and person. Speech is appropriate. Cranial nerve examination demonstrates the pupils 3 mm equal, Extra-ocular movements are intact. Facial motor are normal and symmetrical. Other cranial nerves are grossly intact. Large ecchymoses to her chin Neck is soft and supple. . Muscle strength is 5/5 in all muscle groups of both upper and lower extremities Sensory examination is intact to light touch in both the upper and lower extremities, symmetrically. Cerebellar examination is intact to [id number] test (Casandra Varghese) Medications Current Medications Current Medications Medications (Trade) Dose Ordered Sig/Javier Route PRN Reason Start Time Stop Time Status Last Admin Dose Admin IV Flush (NS Flush) 2 ml UNSCH PRN FLUSH FLUSH AFTER USING IV ACCESS 07/07/16 19:45 IV Flush (NS Flush) 2 ml BID FLUSH 07/07/16 21:00 07/09/16 08:37 Naloxone HCl (Narcan Inj) 0.4 mg UNSCH PRN IV SEE LABEL COMMENTS 07/07/16 19:45 Levothyroxine Sodium (Synthroid) 125 mcg DAILY@06 PO 07/08/16 06:00 07/09/16 05:08 Lisinopril (Prinivil) 20 mg DAILY PO 07/08/16 09:00 07/09/16 08:37 Oxybutynin Chloride (Ditropan) 5 mg DAILY PO 07/08/16 09:00 07/09/16 08:37 Verapamil HCl (Isoptin) 120 mg TID PO 07/08/16 09:00 07/09/16 08:37 Hydralazine HCl (Apresoline Inj) 10 mg Q30M PRN IV PUSH bp>140/80 07/07/16 20:00 07/07/16 21:10 Clonidine (Catapres) 0.1 mg Q6H PRN PO bp>140/80 07/07/16 20:00 07/07/16 21:10 Acetaminophen/ Codeine Phosphate (Tylenol-Codeine #3) 1 tab Q4H PRN PO pain 07/07/16 20:00 Dextrose (D50w (Vial) Inj) 25 ml UNSCH PRN IV PUSH HYPOGLYCEMIA-SEE COMMENTS 07/07/16 21:30 Glucagon (Glucagon Inj) 1 mg UNSCH PRN OTHER HYPOGLYCEMIA-SEE COMMENTS 07/07/16 21:30 Levetriacetam 500 mg 500 mg Q12HR PO 07/08/16 13:45 07/09/16 08:37 Cefepime HCl/ Sodium Chloride (Maxipime Inj/NS Inj) 100 ml @ 200 mls/hr Q12H IV 07/09/16 08:00 (Casandra Varghese) Medical Decision Making MDM Remarks 76 y/o female s/p fall, tentorial subdural hematoma, L frontal SDH, nonfocal neuro exam follow up CT Brain 07/08 slight increase in tentorial bleed with slight midline shift, stable left frontal SDH (Casandra Varghese) Plan Plan Remarks cont neuro checks in ISC continue nonsurgical management nonchemical DVT prophylaxis in view of ICH repeat CT Head tomorrow am dw and pt to avoid further falls, head injury or jarring to the head ( Casandra Varghese) Attending Statement The exam, history, and the medical decision-making described in the above note were completed with the assistance of the mid-level provider. I reviewed and agree with the findings presented. I attest that I had a [id number] encounter with the patient on the same day, and personally performed and documented my assessment and findings in the medical record. (oJe Rosa MD) Casandra Varghese Jul 09, 2016 09:13 Joe Rosa MD Jul 10, 2016 22:11
[2016-07-09] MEDS: ACETAMINOPHEN/HYDROcodone 325 MG/5 MG TAB PO PRN ×3 (10:05→19:10)
[2016-07-09] MEDS: DOCUSATE SODIUM 100 MG CAP PO SCH ×2 (10:05→20:20)
--- NOTE | 2016-07-09 16:29 | HHI.CCPN ---
Subjective Brief History 76-year-old female with history of hypertension and diabetes presents to the emergency department for evaluation following a trip and fall. Patient was walking down her driveway which resulted in incline when she tripped over the hose striking her chin on the ground. Patient did not lose consciousness. She reports chin pain and some mild hand pain. She was assisted to standing by her and son. She had a brief left temporal headache but this is resolved. She has had no episodes of emesis since the incident. No focal deficit or weakness. No chest pain or tightness. Patient underwent full workup and was found to have subarachnoid hemorrhage mainly alongside the falx cerebri. Patient was initially admitted to medicine but transfer today to trauma service and she'll remain on the same Final diagnosis Tentorial subdural hematoma, L frontal SDH, alongside falx cerebral 24 Hour Review/Hospital Course 07/08/16 Patient is awake alert and oriented neurologically fully intact Large bruise over the chin some bruising over the face Patient underwent repeat CAT scan of the brain which reveals increased amount of blood over the falx cerebri and subarachnoid space but no neurologic compromise or significant shift Patient will remain in the ICU for observation Discussed with Dr. Rosa 07/09/16 Patient is awake alert and oriented Yesterday's CAT scan revealed slight increase in the content of blood and subdural and subarachnoid space and slight shift however patient remains neurologically stable side do not see any reason to change current management Patient to stay in the ICU for observation Objective Vital Signs Date Time Temp Pulse Resp B/P Pulse Ox O2 Delivery O2 Flow Rate FiO2 07/09/16 14:00 78 07/09/16 12:00 98.6 19 148/70 99 07/09/16 08:00 Room Air 07/08/16 19:00 2.00 Intake and Output 07/08/16 07/08/16 07/08/16 07:59 15:59 23:59 Intake Total 460 ml 800 ml 720 ml Output Total 1300 ml 1800 ml 1500 ml Balance -840 ml -1000 ml -780 ml Result Diagram: 07/09/16 0348 07/08/16 0332 Other Results Microbiology Date/Time Procedure Status Source Growth 07/07/16 17:45 Urine Culture - Final Complete Urine Clean Catch Exam LEARNING TECHNOLOGIES SPECIALIST Awake alert oriented no lateralization no weakness Hemodynamic/Cardiac Hemodynamically remains stable Pulmonary/Respiratory Bilateral good breath sounds Abdomen/GI Nutrition Abdomen is soft patient tolerates diet well Assessment and Plan Plan We will continue observation in the ICU and repeat another CAT scan tomorrow to follow the bleeding profile Patient was not on any anticoagulants or platelet inhibitors at home and she'll remain so here The exam, history, and the medical decision-making described in the above note were completed with the assistance of the mid-level provider. I reviewed and agree with the findings presented. I attest that I had a [id number] encounter with the patient on the same day, and personally performed and documented my assessment and findings in the medical record. Critical care time 40 minutes. Attestation The exam, history, and the medical decision-making described in the above note were completed with the assistance of the mid-level provider. I reviewed and agree with the findings presented. I attest that I had a [id number] encounter with the patient on the same day, and personally performed and documented my assessment and findings in the medical record. Critical care time 35 minutes. Tung Thomas MD Jul 09, 2016 16:29
[2016-07-09] MEDS: ONDANSETRON HCL 4 MG/2 ML VIAL IV PUSH PRN (19:10)
[2016-07-10] VITALS (11 sets, daily range): BP systolic 105–177; BP diastolic 57–82; PULSE 68–91; RESP 14–22; TEMP 96.3–99.1; O2SAT 96–98
[2016-07-10 03:41] LABS: HEMATOCRIT 33.6 % (35.0-46.0); MEAN CELL VOLUME 80.1 FL (80.0-100.0); MEAN CORPUSCULAR HEMOGLOBIN 26.4 PG (27.0-34.0); MEAN CORPUSCULAR HGB CONC 32.9 % (32.0-36.0); PLATELET COUNT 231 TH/MM3 (150-450); RED CELL DISTRIBUTION WIDTH 15.4 % (11.6-17.2); REVIEW FLAG FINAL; WHITE BLOOD COUNT 7.3 TH/MM3 (4.0-11.0)
[2016-07-10 04:09] LABS: BICARBONATE 26.8 MEQ/L (21.0-32.0); POTASSIUM 4.6 MEQ/L (3.5-5.1)
[2016-07-10] MEDS: LEVOTHYROXINE SODIUM 125 MCG TAB PO SCH (05:53)
[2016-07-10] MEDS: hydrALAZINE HCL 20 MG/ML VIAL IV PUSH PRN (05:53)
[2016-07-10] MEDS: ONDANSETRON HCL 4 MG/2 ML VIAL IV PUSH PRN (05:58)
--- NOTE | 2016-07-10 06:21 | RADRPT ---
EXAM DATE/TIME: 07/10/2016 05:37 [facility] COMPARISON: CT BRAIN W/O CONTRAST, July 08, 2016, 10:53. INDICATIONS : Follow up bleed. RADIATION DOSE: 44.50 CTDIvol (mGy) MEDICAL HISTORY : Cardiovascular disease. Hypertension. Diabetes. SURGICAL HISTORY : None. ENCOUNTER: Initial ACUITY: 2 days PAIN SCALE: 0/10 LOCATION: cranial TECHNIQUE: Multiple contiguous axial images were obtained of the head. Using automated exposure control and adj ustment of the mA and/or kV according to patient size, radiation dose was kept as low as reasonably a chievable to obtain optimal diagnostic quality images. FINDINGS: CEREBRUM: The subdural hemorrhage along the falx and left tentorium is again seen measuring 1.2 cm in width. Th is appears slightly less prominent. Small left frontal/temporal subdural appears stable measuring william roximate 7 mm. Left to right midline shift of 3 mm is stable. Areas of low-attenuation are seen withi n the white matter. The ventricles are normal for age. No evidence of mass lesion or acute infarctio n. POSTERIOR FOSSA: The cerebellum and brainstem are intact. The 4th ventricle is midline. The cerebellopontine angle i s unremarkable. EXTRACRANIAL: The visualized portion of the orbits is intact. SKULL: The calvaria is intact. No evidence of skull fracture. CONCLUSION: 1. The subdural hemorrhage along the falx and left tentorium is slightly less prominent measuring 1.2 cm in width. 2. Left frontal/temporal subdural hematoma is stable. 3. Left and right midline shift of 3 mm is stable. Bruno Bay MD on July 10, 2016 at 6:14 Board Certified Radiologist. This report was verified electronically.
[2016-07-10] MEDS: ACETAMINOPHEN/HYDROcodone 325 MG/5 MG TAB PO PRN ×2 (06:23→12:03)
[2016-07-10] MEDS ORDERED: PILL SPLITTER OTHER PRN (08:30)
[2016-07-10] MEDS: CEFEPIME INJ 1,000 MG in SODIUM CHLORIDE 0.9% INJ 100 ML IV SCH ×2 (08:52→21:26)
[2016-07-10] MEDS ORDERED: METOCLOPRAMIDE HCL 10 MG/2 ML VIAL IV PUSH ONE (09:00)
[2016-07-10] MEDS ORDERED: METOCLOPRAMIDE HCL 10 MG TAB PO PRN (09:00)
[2016-07-10] MEDS: OXYBUTYNIN CHLORIDE 5 MG TAB PO SCH (09:02)
[2016-07-10] MEDS: DOCUSATE SODIUM 100 MG CAP PO SCH ×2 (09:02→21:00)
[2016-07-10] MEDS: INSULIN ASPART SUPPLEMENTAL SCALE SQ SCH ×4 (09:02→21:00)
[2016-07-10] MEDS: VERAPAMIL HCL 120 MG TAB PO SCH ×3 (09:02→18:00)
[2016-07-10] MEDS: FAMOTIDINE 20 MG TAB PO SCH ×2 (09:02→21:25)
[2016-07-10] MEDS: MAGNESIUM HYDROXIDE SUSP 30 ML CUP PO SCH (09:02)
[2016-07-10] MEDS: levETIRAcetam 500 MG TAB PO SCH ×2 (09:03→21:25)
[2016-07-10] MEDS: SODIUM CHLORIDE 0.9% FLUSH 5 ML FLUSH FLUSH SCH ×2 (09:03→21:33)
[2016-07-10] MEDS: LISINOPRIL 20 MG TAB PO SCH (09:03)
[2016-07-10] MEDS: metFORMIN HCL 500 MG TAB PO SCH ×3 (09:03→21:31)
[2016-07-10] MEDS: glipiZIDE 10 MG TAB PO SCH (09:07)
--- NOTE | 2016-07-10 09:35 | HHI.NSPN ---
Subjective History Day 3 after closed head injury, ICH, lesft SDH, very nauseous this am. She has not tolerated eating very well but felt better after vomiting, She remains oriented x3, and did well PT walking yesterday. Headache has improved after vomiting. Vitals . Vital Signs Date Time Temp Pulse Resp B/P Pulse Ox O2 Delivery O2 Flow Rate FiO2 07/10/16 06:00 82 07/10/16 04:00 70 07/10/16 04:00 97.6 70 18 144/67 97 07/10/16 02:00 71 07/10/16 00:00 71 07/10/16 00:00 97.7 68 18 162/75 96 07/09/16 22:00 72 07/09/16 20:00 98.5 68 29 155/71 96 07/09/16 20:00 68 07/09/16 19:00 96 Nasal Cannula 07/09/16 18:00 84 07/09/16 16:00 78 07/09/16 16:00 98.3 78 21 146/67 98 07/09/16 14:00 78 07/09/16 12:00 98.6 88 19 148/70 99 07/09/16 12:00 88 07/09/16 10:00 80 07/09/16 07/09/16 07/10/16 15:00 23:00 07:00 Intake Total 1300 ml 348 ml 240 ml Balance 1300 ml 348 ml 240 ml Physical Exam Head Head Remarks Face with raccoon eyes and large facial ecchymosis on the the right chin. Sutures intact Eyes Eyes: Pupils Equal Neuro Mental Status: Awake, Oriented x 3 Pupils: Reactive Bilaterally Speech: Clear, Appropriate [place] Coma Scale Best Eye Openin - Spontaneous Best Verbal: 5 - Oriented Best Motor: 6 - Obeys Sensation: Intact Cardiac Cardiac: Regular Rate & Rhythm Gastrointestinal Gastrointestinal: Soft (obese) Musculoskeletal Musculoskeletal: Moves all extrem with 5/5 strength (no pronator drift, no apraxia) Extremities Upper Extremities Deltoid Bicep Tricep HI W. Ext Right Left Lower Extremeties Ilio Quad Plantar Dorsi EHL Right Left Objective Labs Laboratory Tests 07/10/16 03:16 Laboratory Tests Test 07/10/16 03:16 Sodium Level 135 MEQ/L Potassium Level 4.6 MEQ/L Chloride Level 101 MEQ/L Carbon Dioxide Level 26.8 MEQ/L Anion Gap 7 MEQ/L Blood Urea Nitrogen 12 MG/DL Creatinine 0.89 MG/DL Estimat Glomerular Filtration 62 ML/MIN Rate Random Glucose 210 MG/DL Calcium Level 9.2 MG/DL Imaging Remarks Last Impressions Head CT 07/08/16 0000 Signed Impressions: Service Date/Time: June 10:53 - CONCLUSION: 1. Interval increase in the amount of blood products in the interhemispheric fissure and along the left tentorium cerebelli. These measure up to maximal thickness of 14 mm compared to 9 mm previously. 2. Stable left frontal acute subdural hematoma measuring up to maximal thickness of 7 mm. There is stable 3 mm of left to right midline shift. Chin Bradford MD Maxillofacial CT 07/07/16 0000 Signed Impressions: Service Date/Time: Thursday, July 07, 2016 17:13 - CONCLUSION: No acute bony injury Guy Byers MD Cervical Spine CT 07/07/16 0000 Signed Impressions: Service Date/Time: Thursday, July 07, 2016 17:13 - CONCLUSION: Extensive degenerative changes. No acute bony injury. Guy Byers MD Assessment & Plan Diagnosis: (1) Subarachnoid bleed Plan: SAH stable, but the SDH has slightly increased. (2) Subdural bleeding Plan: The largest collection is falcine, 14mm will be followed radiologically. Anticoagulation is contraindicated (3) Hypertension Plan: Medically stable (4) Diabetes Plan: Diet encouraged, low dose reglan initiated in addition to the zofran. Metformin and glypizide pending the return of her ability to tolerate PO Critical Care Time (minutes): 10 Javier Deal Jul 10, 2016 09:35
[2016-07-10] MEDS: cloNIDine HCL 0.1 MG TAB PO PRN (12:03)
--- NOTE | 2016-07-10 12:40 | HHI.CCPN ---
Subjective Brief History 76-year-old female with history of hypertension and diabetes presents to the emergency department for evaluation following a trip and fall. Patient was walking down her driveway which resulted in incline when she tripped over the hose striking her chin on the ground. Patient did not lose consciousness. She reports chin pain and some mild hand pain. She was assisted to standing by her and son. She had a brief left temporal headache but this is resolved. She has had no episodes of emesis since the incident. No focal deficit or weakness. No chest pain or tightness. Patient underwent full workup and was found to have subarachnoid hemorrhage mainly alongside the falx cerebri. Patient was initially admitted to medicine but transfer today to trauma service and she'll remain on the same Final diagnosis Tentorial subdural hematoma, L frontal SDH, alongside falx cerebral 24 Hour Review/Hospital Course 07/08/16 Patient is awake alert and oriented neurologically fully intact Large bruise over the chin some bruising over the face Patient underwent repeat CAT scan of the brain which reveals increased amount of blood over the falx cerebri and subarachnoid space but no neurologic compromise or significant shift Patient will remain in the ICU for observation Discussed with Dr. Rosa 07/09/16 Patient is awake alert and oriented Yesterday's CAT scan revealed slight increase in the content of blood and subdural and subarachnoid space and slight shift however patient remains neurologically stable side do not see any reason to change current management Patient to stay in the ICU for observation 07/10/16 Patient is awake and alert doing well for the last 20 4R she is remains stable The CT scan reveals stable and may be slightly decreasing amount of blood and the subdural and subarachnoid space around falx cerebri Objective Vital Signs Date Time Temp Pulse Resp B/P Pulse Ox O2 Delivery O2 Flow Rate FiO2 07/10/16 12:00 98.3 80 22 160/71 98 07/10/16 07:00 Room Air 07/08/16 19:00 2.00 Intake and Output 07/09/16 07/09/16 07/09/16 07:59 15:59 23:59 Intake Total 480 ml 1300 ml 348 ml Output Total 1150 ml Balance -670 ml 1300 ml 348 ml Result Diagram: 07/10/16 0316 07/10/16 0316 Other Results Microbiology Date/Time Procedure Status Source Growth 07/07/16 17:45 Urine Culture - Final Complete Urine Clean Catch Imaging Last [address] 07/10/16 0600 Signed Impressions: Service Date/Time: Sunday, July 10, 2016 05:37 - CONCLUSION: 1. The subdural hemorrhage along the falx and left tentorium is slightly less prominent measuring 1.2 cm in width. 2. Left frontal/temporal subdural hematoma is stable. 3. Left and right midline shift of 3 mm is stable. Bruno Bay MD Exam COLLEGE AND CAREER COUNSELOR [place] Coma Scale 15 Neurologically fully intact with bilateral equal strength No neurologic deficit noted Facial bruising slowly abating Hemodynamic/Cardiac Him anatomy equally stable slightly hypertensive being treated Pulmonary/Respiratory Bilateral good breath sounds Assessment and Plan Plan We will continue observation in the ICU and repeat another CAT scan tomorrow to follow the bleeding profile Patient was not on any anticoagulants or platelet inhibitors at home and she'll remain so here The exam, history, and the medical decision-making described in the above note were completed with the assistance of the mid-level provider. I reviewed and agree with the findings presented. I attest that I had a [id number] encounter with the patient on the same day, and personally performed and documented my assessment and findings in the medical record. Critical care time 40 minutes. Attestation Patient will be transferred to floor today for further care and observation Tung Thomas MD Jul 10, 2016 12:40
[2016-07-10] MEDS: glipiZIDE 5 MG TAB PO SCH (21:25)
[2016-07-11] VITALS (10 sets, daily range): BP systolic 115–154; BP diastolic 65–79; PULSE 80–95; RESP 16–19; TEMP 97–99.7; O2SAT 95–98
[2016-07-11] MEDS: LEVOTHYROXINE SODIUM 125 MCG TAB PO SCH (06:32)
[2016-07-11] MEDS: INSULIN ASPART SUPPLEMENTAL SCALE SQ SCH ×4 (06:39→20:30)
[2016-07-11] MEDS: CEFEPIME INJ 1,000 MG in SODIUM CHLORIDE 0.9% INJ 100 ML IV SCH (08:53)
[2016-07-11] MEDS: SODIUM CHLORIDE 0.9% FLUSH 5 ML FLUSH FLUSH SCH ×2 (08:53→20:29)
[2016-07-11] MEDS: metFORMIN HCL 500 MG TAB PO SCH ×3 (08:53→20:27)
[2016-07-11] MEDS: OXYBUTYNIN CHLORIDE 5 MG TAB PO SCH (08:54)
[2016-07-11] MEDS: FAMOTIDINE 20 MG TAB PO SCH ×2 (08:54→20:28)
[2016-07-11] MEDS: glipiZIDE 10 MG TAB PO SCH (08:54)
[2016-07-11] MEDS: LISINOPRIL 20 MG TAB PO SCH (08:54)
[2016-07-11] MEDS: levETIRAcetam 500 MG TAB PO SCH ×2 (08:54→20:27)
[2016-07-11] MEDS: VERAPAMIL HCL 120 MG TAB PO SCH ×3 (08:54→18:04)
[2016-07-11] MEDS: DOCUSATE SODIUM 100 MG CAP PO SCH ×2 (08:55→20:30)
[2016-07-11] MEDS: MAGNESIUM HYDROXIDE SUSP 30 ML CUP PO SCH (08:55)
--- NOTE | 2016-07-11 11:53 | HHI.NSPN ---
History Chief Complaint: none Interval History She has improved, is "normal" per her , walking independently with the walker and voiding well. She denies vertigo, nausea. Review of Systems General: Negative for: fever, chills, insomnia Respiratory: Negative for: shortness of breath, cough, sputum Cardiovascular: Negative for: chest pain, palpitations, orthopnea Gastrointestinal: Negative for: nausea, vomitting, diarrhea, constipation Exam Results Vital Signs Date Time Temp Pulse Resp B/P Pulse Ox O2 Delivery O2 Flow Rate FiO2 07/11/16 08:18 97.0 86 18 148/79 95 07/10/16 13:50 21 07/10/16 07:00 Room Air 07/08/16 19:00 2.00 Intake and Output 07/10/16 07/10/16 07/11/16 08:00 16:00 00:00 Intake Total 240 ml 480 ml 650 ml Balance 240 ml 480 ml 650 ml Physical Examination The patient is alert, awake and oriented to time, place and person. Speech is appropriate Cranial nerve examination demonstrates the pupils to be equal, round, and reactive to light. Extra-ocular movements are intact. Facial motor are normal and symmetrical. Sternocleidomastoid and trapezius muscles have normal and symmetrical strength. Other cranial nerves are intact. Neck is soft and supple. Large ecchymoses to her chin Muscle strength is good with no pronator drift and no dexterity loss Sensory examination is intact to light touch in both the upper and lower extremities, symmetrically. Cerebellar examination is intact to [id number] test Medical Decision Making Impression and Plan Improving neurologically and will probably be able to go home with home health therapies. Case management is consulted. Javier Deal Jul 11, 2016 11:53
--- NOTE | 2016-07-11 12:09 | HHI.PR ---
Subjective Subjective Notes PTD: 4 Pt is sitting up in a chair. Only complaint is pain at her IV site. Appears red and edematous. IV removed. Pt states that she has been walking independently in her room back and forth to the restroom as needed. Pt is hoping to be discharge tomorrow. She states that she will have assistance at home from her son and . Objective Vitals/I&O Vital Signs Date Time Temp Pulse Resp B/P Pulse Ox O2 Delivery O2 Flow Rate FiO2 07/11/16 08:18 97.0 86 18 148/79 95 07/10/16 13:50 21 07/10/16 07:00 Room Air 07/08/16 19:00 2.00 Labs Date/Time Procedure Status Source Growth 07/07/16 17:45 Urine Culture - Final Complete Urine Clean Catch Radiology Last Impressions Head CT 07/10/16 0600 Signed Impressions: Service Date/Time: Sunday, July 10, 2016 05:37 - CONCLUSION: 1. The subdural hemorrhage along the falx and left tentorium is slightly less prominent measuring 1.2 cm in width. 2. Left frontal/temporal subdural hematoma is stable. 3. Left and right midline shift of 3 mm is stable. Bruno Bay MD Maxillofacial CT 07/07/16 0000 Signed Impressions: Service Date/Time: Thursday, July 07, 2016 17:13 - CONCLUSION: No acute bony injury Guy Byers MD Cervical Spine CT 07/07/16 0000 Signed Impressions: Service Date/Time: Thursday, July 07, 2016 17:13 - CONCLUSION: Extensive degenerative changes. No acute bony injury. Guy Byers MD Narrative Exam GENERAL: This is a 76 year old female sitting up in a chair in no distress or discomfort. SKIN: Warm and dry. Sutures noted to lower lip area. BEHAVIOR ANALYST. CDI. Bruising to chin and neck. HEAD: Atraumatic. Normocephalic. EYES: PERRLA ENT: No nasal bleeding or discharge. Mucous membranes pink and moist. NECK: Trachea midline. No JVD. CARDIOVASCULAR: Regular rate and rhythm. RESPIRATORY: No accessory muscle use. Lungs are clear to auscultation. Breath sounds equal bilaterally. GASTROINTESTINAL: Abdomen soft, non-tender, nondistended. MUSCULOSKELETAL: Extremities without cyanosis, or edema. No obvious deformities. MAEW. Ambulatory. NEUROLOGICAL: Awake and alert. Normal speech. A/P Assessment and Plan [place]: This is a 76-year-old male who tripped and fell over a hose on the driveway. She fell striking her chin on the ground. No LOC. Her only complaint was headache. INJURIES: LIP lac (5 sutures) SAH 3-4mm parietal SDH Diet: Regular ADA diet. Tolerating po diet. Encourage good po intake with each meal. Pulmonary: Encourage good pulmonary toileting. IS at bedside and pt encouraged to use. Rationale for use explained to patient, and verbalized understanding. PAIN Management: [place] by mouth. HTN treatment: Lisinopril po, verapamil po. When necessary Apresoline and clonidine. DM control: Metformin. Glucotrol. DC Cefepime. May remain without an IV. (the patient has no other IV meds) Activity: OOB with assist. PT and OT ordered. GI prophylaxis: Pepcid by mouth. Bowel regimen: Colace and MOM. BM x 1. DVT prophylaxis: Mechanical VTE with SCDs. Chemical management contraindicated due to SAH/SDH. DC Planning: Case management consulted for assistance with final discharge disposition. Pt is hoping to go home tomorrow. She states that she will have assistance at home from her and son. Emotional support provided to patient and family at bedside and plan of care discussed. Plan of care discussed with RN at the bedside. Patient is hemodynamically stable and being managed on the med/surg floor. Attending Statement The exam, history, and the medical decision-making described in the above note were completed with the assistance of the mid-level provider. I reviewed and agree with the findings presented. I attest that I had a [id number] encounter with the patient on the same day, and personally performed and documented my assessment and findings in the medical record. awake and alert on neuro exam, DC when cleared by Mayda Hancock Jul 11, 2016 12:09 Harry Dutton MD Jul 11, 2016 17:58
[2016-07-11] MEDS ORDERED: LOPERAMIDE HCL 2 MG CAP PO ONE (15:00)
[2016-07-11] MEDS: ACETAMINOPHEN/HYDROcodone 325 MG/5 MG TAB PO PRN (20:27)
[2016-07-11] MEDS: glipiZIDE 5 MG TAB PO SCH (20:27)
[2016-07-12 04:46] VITALS: BP 147/76; PULSE 82; RESP 16; TEMP 98; O2SAT 95
[2016-07-12] MEDS: INSULIN ASPART SUPPLEMENTAL SCALE SQ SCH ×2 (05:02→11:00)
[2016-07-12] MEDS: LEVOTHYROXINE SODIUM 125 MCG TAB PO SCH (05:03)
[2016-07-12] MEDS ORDERED: WALKER WHEELS/F1 MIS (07:33)
[2016-07-12] MEDS ORDERED: BATH/SHOWER SEA1 MI1 (07:34)
--- NOTE | 2016-07-12 07:47 | HHI.NSPN ---
History Chief Complaint: none Interval History 07/12/2016: Out of bed and chair. Feels well. No headache or dizziness or nausea or vomiting. Exam Results Vital Signs Date Time Temp Pulse Resp B/P Pulse Ox O2 Delivery O2 Flow Rate FiO2 07/12/16 04:46 98.0 82 16 147/76 95 07/10/16 13:50 21 07/10/16 07:00 Room Air 07/08/16 19:00 2.00 Intake and Output 07/11/16 07/11/16 07/11/16 07:59 15:59 23:59 Intake Total 1000 ml 480 ml Balance 1000 ml 480 ml Physical Examination The patient is alert, awake and oriented to time, place and person. Speech is appropriate Cranial nerve examination demonstrates the pupils to be equal, round, and reactive to light. Extra-ocular movements are intact. Facial motor are normal and symmetrical. Sternocleidomastoid and trapezius muscles have normal and symmetrical strength. Other cranial nerves are intact. Neck is soft and supple. No low back pain or tenderness Large ecchymoses to her chin improving Muscle strength is good with no pronator drift and no dexterity loss all extremities Sensory examination is intact to light touch in both the upper and lower extremities, symmetrically. Cerebellar examination is intact to [id number] test Lab, Micro, Other Results 07/10/16 CT scan head images reviewed by the undersigned. Agree with findings as noted below: Head CT 07/10/16 0600 Signed Impressions: Service Date/Time: Sunday, July 10, 2016 05:37 - CONCLUSION: 1. The subdural hemorrhage along the falx and left tentorium is slightly less prominent measuring 1.2 cm in width. 2. Left frontal/temporal subdural hematoma is stable. 3. Left and right midline shift of 3 mm is stable. Bruno Bay MD Medical Decision Making Impression and Plan Impression: Status post closed head injury with intracranial hemorrhage-primarily interhemispheric subdural hematoma with mild mass effect. CT scan 07/10/16 stable. Patient has normal neurologic exam with no symptoms related to the hemispheric subdural hematoma. Plan: Findings were discussed with the patient. She is stable for discharge home from a neurosurgery standpoint. She will need to follow-up with neurosurgery, Dr. Rosa in approximately 10-14 days. Signs and symptoms watch were discussed with the patient. She should avoid antiplatelet agents, vitamin E, fish oil, statin medications, aspirin until otherwise cleared by neurosurgery at her next appointment. Nate Plunkett MD Jul 12, 2016 07:47
[2016-07-12 08:46] VITALS: BP 151/79; PULSE 86; RESP 18; TEMP 98.1; O2SAT 97
[2016-07-12 08:48] LABS: BICARBONATE 24.8 MEQ/L (21.0-32.0); POTASSIUM 4.8 MEQ/L (3.5-5.1)
[2016-07-12] MEDS: OXYBUTYNIN CHLORIDE 5 MG TAB PO SCH (08:56)
[2016-07-12] MEDS: FAMOTIDINE 20 MG TAB PO SCH (08:56)
[2016-07-12] MEDS: glipiZIDE 10 MG TAB PO SCH (08:56)
[2016-07-12] MEDS: LISINOPRIL 20 MG TAB PO SCH (08:56)
[2016-07-12] MEDS: metFORMIN HCL 500 MG TAB PO SCH ×2 (08:56→12:51)
[2016-07-12] MEDS: levETIRAcetam 500 MG TAB PO SCH (08:56)
[2016-07-12] MEDS: VERAPAMIL HCL 120 MG TAB PO SCH ×2 (08:56→12:51)
[2016-07-12] MEDS: DOCUSATE SODIUM 100 MG CAP PO SCH (08:59)
[2016-07-12] MEDS: MAGNESIUM HYDROXIDE SUSP 30 ML CUP PO SCH (08:59)
[2016-07-12] MEDS: SODIUM CHLORIDE 0.9% FLUSH 5 ML FLUSH FLUSH SCH (08:59)
[2016-07-12] MEDS ORDERED: TYLE325T PO (11:11)
--- NOTE | 2016-07-12 11:19 | HHI.DS ---
Discharge Summary Admission Date Jul 07, 2016 at 19:09 Discharge Date: Jul 12, 2016 Admitting Diagnosis SAH/SDH s/p fall; Chin laceration (1) Subarachnoid bleed Diagnosis: Principal (2) Subdural bleeding Diagnosis: Principal Brief History Trip and fall. CBC/BMP: 07/10/16 0316 07/12/16 0714 Significant Findings Laboratory Tests Test 07/10/16 07/12/16 03:16 07:14 Hemoglobin 11.1 GM/DL (11.6-15.3) Hematocrit 33.6 % (35.0-46.0) Mean Corpuscular Hemoglobin 26.4 PG (27.0-34.0) Sodium Level 135 MEQ/L (136-145) Estimat Glomerular Filtration 62 ML/MIN (>89) 60 ML/MIN (>89) Rate Random Glucose 210 MG/DL 153 MG/DL (74-106) (74-106) Imaging Last Impressions Head CT 07/10/16 0600 Signed Impressions: Service Date/Time: Sunday, July 10, 2016 05:37 - CONCLUSION: 1. The subdural hemorrhage along the falx and left tentorium is slightly less prominent measuring 1.2 cm in width. 2. Left frontal/temporal subdural hematoma is stable. 3. Left and right midline shift of 3 mm is stable. Bruno Bay MD Maxillofacial CT 07/07/16 0000 Signed Impressions: Service Date/Time: Thursday, July 07, 2016 17:13 - CONCLUSION: No acute bony injury Guy Byers MD Cervical Spine CT 07/07/16 0000 Signed Impressions: Service Date/Time: Thursday, July 07, 2016 17:13 - CONCLUSION: Extensive degenerative changes. No acute bony injury. Guy Byers MD PE at Discharge GENERAL: This is a 76 year old female sitting up in a chair in no distress or discomfort. Family at bedside. SKIN: Warm and dry. Sutures noted to lower lip area. (Request removal of sutures prior to discharge) BELLA. CDI. Bruising to chin and neck. HEAD: Atraumatic. Normocephalic. EYES: PERRLA. Scant ecchymosis noted to RIGHT eye. ENT: No nasal bleeding or discharge. Mucous membranes pink and moist. NECK: Trachea midline. No JVD. CARDIOVASCULAR: Regular rate and rhythm. RESPIRATORY: No accessory muscle use. Lungs are clear to auscultation. Breath sounds equal bilaterally. GASTROINTESTINAL: Abdomen soft, non-tender, nondistended. MUSCULOSKELETAL: Extremities without cyanosis, or edema. No obvious deformities. SEAN. Ambulatory independently in her room and to restroom. NEUROLOGICAL: Awake and alert. Normal speech. Hospital Course This is a 76-year-old female who apparently tripped over a hose in her driveway and fell. She struck her chin on the ground. No LOC. She only complained of a headache. Injuries: Lip laceration SAH 3-4 mm parietal SDH The patient is now tolerating a po diet. Eating and drinking well. Patient is not complaining of any pain, and states that she is only taking the pain medication that is prescribed here in order to sleep. She can continue at home with [id number] Tylenol by mouth and take Benadryl for sleep if needed. Pt is having regular bowel movements, and have recommended to patient to continue with stool softeners while taking narcotic pain medications. Pt has been participating in PT and OT while admitted at [facility] and has been ambulating with their assistance and independently. She states that this morning she has been walking to the restroom without the walker and has been doing well. All follow up appointments have been provided and discussed with the patient. It is recommended that the patient keeps all his follow up appointments for continued recovery. Therefore, the patient is stable to be safely discharged home from a trauma surgery standpoint into her and son's care. Thank you for allowing us to participate in her care. We wish Vianca the best in her recovery. Pt Condition on Discharge: Stable Discharge Disposition: Discharge Home Discharge Instructions DIET: Follow Instructions for: Diabetic Diet Additional Diet Instructions: Dr. Plunkett recommends that the patient avoid antiplatelets, vitamin E, fish oil, statins, and aspirin. Activities you can perform: Regular-No Restrictions, Shower/Bath Activities to Avoid: Driving for 24 hrs, Concussion Sports, Contact Sports, Lifting/Bending, Strenuous Activity Attending Statement Patient seen and examined with the physician skating rink manager. After performing my own clinical exam and assessment, I agree with the assessment and plan. Mayda Kamara Jul 12, 2016 11:19 Miguelito Motta MD Jul 16, 2016 14:52
[2016-07-12] MEDS ORDERED: BENA25CA4 PO (11:22)
[2016-07-12 12:50] VITALS: BP 129/60; PULSE 96; RESP 18; TEMP 99.3; O2SAT 95
[2016-07-13] MEDS ORDERED: WALKER WHEELS/F1 MIS ×2 (13:04→13:38)
== END 2016-07-12 14:59 | disposition home or self-care (01) | DRG 87 ==
LOC: NEPA 15:42 → NEDA 19:09 → N03A 22:39 → N05A 07-10 13:35
PROVIDERS: ADMIT Internal Medicine; ATTEND Surgery
PROC: 0CQ1XZZ Repair Lower Lip, External Approach (ICD-10-PCS; principal; 2016-07-07)
DX: S06.5X0A Traumatic subdural hemorrhage without loss of consciousness, initial encounter (principal); S06.6X0A Traumatic subarachnoid hemorrhage without loss of consciousness, initial encounter; E11.9 Type 2 diabetes mellitus without complications; S01.511A Laceration without foreign body of lip, initial encounter; I10 Essential (primary) hypertension; S00.83XA Contusion of other part of head, initial encounter; E03.9 Hypothyroidism, unspecified; E66.9 Obesity, unspecified; W01.198A Fall on same level from slipping, tripping and stumbling with subsequent striking against other object, initial encounter; Y93.K1 Activity, walking an animal; Y92.007 Garden or yard of unspecified non-institutional (private) residence as the place of occurrence of the external cause; Z68.37 Body mass index [BMI] 37.0-37.9, adult; Z79.84 Long term (current) use of oral hypoglycemic drugs
CPT/HCPCS: 12031; 70450; 70486; 72125; 80048; 81001; 82948; 85025; 85027; 85610; 85730; 87077; 87086; 87186; 90471; 90714; 93005; 94150; 96365; 96375; J0360; J0692; J0696; J1815; J2405; J2765

== ENCOUNTER 2017-04-20 18:55 | Emergency (ER) | payer MEDICARE, OTHER ==
[~2017-04-20] VITALS: Ht 160 cm; Wt 94.0 kg
[~2017-04-20 18:55] MED LIST: ASPI1TAB69 PO; BATH/SHOWER SEA1 MI1; BENA25CA4 PO; GLIP10TA6 PO; GLIP5TAB8 PO; LEVO125T4 PO; LISI-515 PO; METF1000 PO; METF500T PO; OXYB5TAB10 PO; TYLE325T PO; VERA120T3 PO; WALKER WHEELS/F1 MIS
[2017-04-20 18:56] VITALS: BP 139/82; PULSE 81; RESP 16; TEMP 98.7; O2SAT 96
[2017-04-20 21:40] VITALS: O2SAT 97
[2017-04-20] MEDS ORDERED: SODIUM CHLOR 0.9% 1000 ML INJ 1,000 ML IV SCH (21:46)
[2017-04-20] MEDS ORDERED: SODIUM CHLORIDE 0.9% FLUSH 10 ML FLUSH IV FLUSH PRN (22:00)
[2017-04-20] MEDS ORDERED: ONDANSETRON HCL 4 MG/2 ML VIAL IVP ONE (22:00)
[2017-04-20] MEDS ORDERED: MORPHINE SULFATE 4 MG/ML INJ IV PUSH ONE (22:00)
--- NOTE | 2017-04-20 22:09 | PD ---
HPI . Diarrhea Chief Complaint: GI Complaint Time Seen by Provider: 21:43 Travel History International Travel<30 days: No Contact w/Intl Traveler<30days: No Traveled to known affect area: No History of Present Illness HPI This patient presents with the chief complaint of diarrhea. Onset was 3 days ago. She states that her symptoms were better yesterday but then recurred today. She estimates about 10 episodes of loose stools today. She describes the stool as the color of peanut butter and foamy. It is associated with some diffuse abdominal pain. She denies any fever. She denies any urinary tract symptoms. She denies any sick contacts. She states that she has not been on any recent antibiotics. Her symptoms have been unrelieved by Imodium. No exacerbating factors. PFSH Past Medical History Cardiovascular Problems: Yes High Cholesterol: Yes Diabetes: Yes Genitourinary: No Hypertension: Yes Musculoskeletal: No Neurologic: No Reproductive: No Respiratory: No Past Surgical History Section: Yes (X2) Social History Alcohol Use: No Tobacco Use: No Substance Use: No Allergies-Medications (Allergen,Severity, Reaction): Coded Allergies: No Known Allergies (Unverified , 04/20/17) Reported Meds & Prescriptions Reported Meds & Active Scripts Active Bentyl (Dicyclomine HCl) 10 Mg Cap 20 Mg PO QID Walker with Front Wheels (Device) 1 Mis Mis 1 Ea .ROUTE DIRECTED Benadryl Allergy (Diphenhydramine HCl) 25 Mg Cap 50 Mg PO HS PRN 30 Days Tylenol (Acetaminophen) 325 Mg Tab 650 Mg PO Q6H PRN 30 Days Bath/Shower Seat with Navya (Device) 1 Mis Mis 1 Ea .ROUTE DIRECTED Reported Aspirin 81 Mg Tabdr 81 Mg PO DAILY Ditropan (Oxybutynin Chloride) 5 Mg Tab 5 Mg PO DAILY Lisinopril 20 Mg Tab 20 Mg PO DAILY Levothyroxine (Levothyroxine Sodium) 125 Mcg Tab 125 Mcg PO DAILY Verapamil (Verapamil HCl) 120 Mg Tab 120 Mg PO TID Glipizide 5 Mg Tab 5 Mg PO HS Take 30 minutes before a meal Glipizide 10 Mg Tab 10 Mg PO DAILY Take 30 minutes before a meal Metformin (Metformin HCl) 500 Mg Tab 500 Mg PO HS With meals Metformin (Metformin HCl) 1,000 Mg Tab 1,000 Mg PO BID With meals Review of Systems Except as stated in HPI: all other systems reviewed are Neg General / Constitutional: No: Fever, Chills Gastrointestinal: Positive: Nausea, Diarrhea, Abdominal Pain, No: Vomiting Genitourinary: No: Urgency, Frequency, Dysuria Physical Exam Narrative GENERAL: Healthy-appearing elderly woman who is in no distress. SKIN: warm/dry. HEAD: Normocephalic. Her medical. EYES: Pupils equal and round. No scleral icterus. No injection or drainage. ENT: No nasal bleeding or discharge. Mucous membranes pink and moist. NECK: Trachea midline. Full range of motion without pain.. CARDIOVASCULAR: Regular rate and rhythm. Heart sounds are normal. RESPIRATORY: No accessory muscle use. Clear to auscultation. Breath sounds equal bilaterally. GASTROINTESTINAL: Abdomen soft. Nontender. Bowel sounds present. Nondistended. MUSCULOSKELETAL: No obvious deformities. NEUROLOGICAL: Awake and alert. No obvious cranial nerve deficits. Motor grossly within normal limits. Normal speech. PSYCHIATRIC: Appropriate mood and affect; insight and judgment normal. Data Data Last Documented VS Vital Signs Date Time Temp Pulse Resp B/P (MAP) Pulse Ox O2 Delivery O2 Flow Rate FiO2 04/20/17 18:56 98.7 81 16 139/82 (101) 96 Room Air Orders Orders Complete Blood Count With Diff (04/20/17 21:46) Comprehensive Metabolic Panel (04/20/17 21:46) Lipase (04/20/17 21:46) Urinalysis - C+S If Indicated (04/20/17 21:46) Ct Abd/Pel W Iv Contrast(Rout) (04/20/17 21:46) Iv Access Insert/Monitor (04/20/17 21:46) Ecg Monitoring (04/20/17 21:46) Oximetry (04/20/17 21:46) Morphine Inj (Morphine Inj) (04/20/17 22:00) Ondansetron Inj (Zofran Inj) (04/20/17 22:00) Sodium Chlor 0.9% 1000 Ml Inj (Ns 1000 M (04/20/17 21:46) Sodium Chloride 0.9% Flush (Ns Flush) (04/20/17 22:00) Electrocardiogram (04/20/17 21:46) Iohexol 350 Inj (Omnipaque 350 Inj) (04/20/17 23:07) Labs Laboratory Tests Test 04/20/17 22:05 04/20/17 23:20 White Blood Count 9.2 TH/MM3 Red Blood Count 4.48 MIL/MM3 Hemoglobin 11.7 GM/DL Hematocrit 37.3 % Mean Corpuscular Volume 83.1 FL Mean Corpuscular Hemoglobin 26.2 PG Mean Corpuscular Hemoglobin Concent 31.5 % Red Cell Distribution Width 14.9 % Platelet Count 216 TH/MM3 Mean Platelet Volume 8.9 FL Neutrophils (%) (Auto) 69.0 % Lymphocytes (%) (Auto) 18.8 % Monocytes (%) (Auto) 4.4 % Eosinophils (%) (Auto) 7.7 % Basophils (%) (Auto) 0.1 % Neutrophils # (Auto) 6.3 TH/MM3 Lymphocytes # (Auto) 1.7 TH/MM3 Monocytes # (Auto) 0.4 TH/MM3 Eosinophils # (Auto) 0.7 TH/MM3 Basophils # (Auto) 0.0 TH/MM3 CBC Comment DIFF FINAL Differential Comment Blood Urea Nitrogen 11 MG/DL Creatinine 0.97 MG/DL Random Glucose 268 MG/DL Total Protein 7.8 GM/DL Albumin 3.2 GM/DL Calcium Level 9.2 MG/DL Alkaline Phosphatase 69 U/L Aspartate Amino Transf (AST/SGOT) 10 U/L Alanine Aminotransferase (ALT/SGPT) 14 U/L Total Bilirubin 0.3 MG/DL Sodium Level 137 MEQ/L Potassium Level 4.4 MEQ/L Chloride Level 107 MEQ/L Carbon Dioxide Level 21.7 MEQ/L Anion Gap 8 MEQ/L Estimat Glomerular Filtration Rate 56 ML/MIN Lipase 148 U/L Urine Color LIGHT-YELLOW Urine Turbidity CLEAR Urine pH 5.5 Urine Specific [place] 1.012 Urine Protein NEG mg/dL Urine Glucose (UA) 1000 mg/dL Urine Ketones NEG mg/dL Urine Occult Blood NEG Urine Nitrite NEG Urine Bilirubin NEG Urine Urobilinogen LESS THAN 2.0 MG/DL Urine Leukocyte Esterase TRACE Urine RBC 1 /hpf Urine WBC 4 /hpf Urine Squamous Epithelial Cells 1 /hpf Urine Hyaline Casts 3 /lpf Urine Mucus FEW /lpf Microscopic Urinalysis Comment CULT NOT INDICATED MDM Medical Decision Making Medical Screen Exam Complete: Yes Emergency Medical Condition: Yes Medical Record Reviewed: Yes (medical history is significant for hypertension and diabetes. She had a previous trip and fall about a year ago which resulted in a SAH/SDH. She is completely recovered from this.) Interpretation(s) EKG shows a normal sinus rhythm with no acute ischemic change. Differential Diagnosis Differential diagnosis of diarrhea includes but is not limited to early enteritis, bacterial enteritis, antibiotic induced diarrhea, irritable bowel syndrome Narrative Course This patient presents with diarrhea. She also has abdominal pain. All. She has a benign abdominal exam. CBC & BMP Diagram 04/20/17 22:05 Total Protein 7.8, Albumin 3.2 L, Calcium Level 9.2, Alkaline Phosphatase 69, Aspartate Amino Transf (AST/SGOT) 10 L, Alanine Aminotransferase (ALT/SGPT) 14, Total Bilirubin 0.3 CT abd/pelvis>>No acute CT findings in the abdomen or pelvis. UA>>trace LE, 4 WBCs. This is probably insignificant. Diagnosis Primary Impression: Abdominal pain Qualified Codes: R10.84 - Generalized abdominal pain Additional Impression: Diarrhea Qualified Codes: R19.7 - Diarrhea, unspecified Patient Instructions: Abdominal Pain (ED), Acute Diarrhea (ED), General Instructions Additional Instructions: See your doctor if symptoms continue Med/Other Pt SpecificInfo: Prescription(s) given Scripts Dicyclomine (Bentyl) 10 Mg Cap 20 MG PO QID for Bowel Management, #10 CAP 0 Refills Prov: Jaida Chaidez MD 04/20/17 Disposition: 01 DISCHARGE HOME Condition: Stable Jaida Chaidez MD Apr 20, 2017 22:09
[2017-04-20 22:46] LABS: AUTOMATED NEUTROPHIL # 6.3 TH/MM3 (1.8-7.7); BASOPHIL % 0.1 % (0.0-2.0); EOSINOPHIL # 0.7 TH/MM3 (0-0.4); EOSINOPHIL % 7.7 % (0.0-4.0); HEMATOCRIT 37.3 % (35.0-46.0); HEMO FLAGS DIFF FINAL; LYMPH % 18.8 % (9.0-44.0); LYMPHOCYTE # 1.7 TH/MM3 (1.0-4.8); MEAN CELL VOLUME 83.1 FL (80.0-100.0); MEAN CORPUSCULAR HEMOGLOBIN 26.2 PG (27.0-34.0); MEAN CORPUSCULAR HGB CONC 31.5 % (32.0-36.0); MONO % 4.4 % (0.0-8.0); PLATELET COUNT 216 TH/MM3 (150-450); RED BLOOD COUNT 4.48 MIL/MM3 (4.00-5.30); RED CELL DISTRIBUTION WIDTH 14.9 % (11.6-17.2); WHITE BLOOD COUNT 9.2 TH/MM3 (4.0-11.0)
[2017-04-20 22:53] LABS: ANION GAP 8 MEQ/L (5-15); AST (GOT) 10 U/L (15-37); BICARBONATE 21.7 MEQ/L (21.0-32.0); BLOOD UREA NITROGEN 11 MG/DL (7-18); CHLORIDE 107 MEQ/L (98-107); GLOMERULAR FILTRATION RATE 56 ML/MIN (>89); POTASSIUM 4.4 MEQ/L (3.5-5.1); SODIUM (NA) 137 MEQ/L (136-145)
[2017-04-20 22:56] LABS: ALKALINE PHOSPHATASE 69 U/L (45-117); ALT (GPT) 14 U/L (10-53); TOTAL BILIRUBIN ADULT 0.3 MG/DL (0.2-1.0)
[2017-04-20] MEDS ORDERED: IOHEXOL 350 MG/ML 10 ML VIAL (for RAD DIAG) IVCONTRAST ONE (23:07)
--- NOTE | 2017-04-20 23:30 | RADRPT ---
EXAM DATE/TIME: 04/20/2017 23:03 [facility] COMPARISON: No previous studies available for comparison. INDICATIONS : Abdominal pain with nausea and diarrhea for 4 days. IV CONTRAST: 100 cc Omnipaque 350 (iohexol) IV ORAL CONTRAST: No oral contrast ingested. RADIATION DOSE: 25.56 CTDIvol (mGy) ; Patient body habitus MEDICAL HISTORY : Hypertension. Cardiovascular disease diabetes SURGICAL HISTORY : section. ENCOUNTER: Initial ACUITY: 4 - 6 days PAIN SCALE: 7/10 LOCATION: abdomen TECHNIQUE: Volumetric scanning of the abdomen and pelvis was performed. Using automated exposure control and ad justment of the mA and/or kV according to patient size, radiation dose was kept as low as reasonably achievable to obtain optimal diagnostic quality images. DICOM format image data is available electro nically for review and comparison. FINDINGS: LOWER LUNGS: Minimal scarring or atelectasis in the lung bases LIVER: Homogeneous density without lesion. There is no dilation of the biliary tree. There are at least a c ouple small dependent gallstones.. SPLEEN: Normal size without lesion. PANCREAS: Within normal limits. KIDNEYS: Normal in size and shape. There is no mass, stone or hydronephrosis. ADRENAL GLANDS: Within normal limits. VASCULAR: There is no aortic aneurysm. BOWEL/MESENTERY: Sizable duodenal diverticulum area distal colonic diverticula. No abnormal dilatation, wall thickenin g or focal inflammatory changes appreciated. ABDOMINAL WALL: Within normal limits. RETROPERITONEUM: There is no lymphadenopathy. BLADDER: No wall thickening or mass. REPRODUCTIVE: Multiple calcifications and a fibroid uterus. No evidence of free fluid in the pelvis. No adnexal mas s. INGUINAL: There is no lymphadenopathy or hernia. MUSCULOSKELETAL: Within normal limits for patient age. CONCLUSION: No acute CT findings in the abdomen or pelvis. Chin Moreira MD on April 20, 2017 at 23:24 Board Certified Radiologist. This report was verified electronically.
[2017-04-20 23:36] LABS: BLOOD, URINE NEG (NEG); COMMENT (UR) CULT NOT INDICATED; CULTURE IF INDICATED CULT NOT INDICATED; GLUCOSE,URINE 1000 mg/dL (NEG); HYALINE CAST, URINE 3 /lpf (RARE); KETONE, URINE NEG (NEG); MUCUS URINE FEW /lpf (OCC); NITRITE,URINE NEG (NEG); PH, URINE 5.5 (5.0-8.5); SQUAMOUS EPITHELIAL CELL URINE 1 /hpf (0-5); URINE COLOR LIGHT-YELLOW (YELLW/STRAW)
[2017-04-20] MEDS ORDERED: DICY10 PO (23:37)
== END 2017-04-21 00:31 | disposition home or self-care (01) ==
LOC: NEPD 18:55
DX: R10.84 Generalized abdominal pain (principal); R19.7 Diarrhea, unspecified
CPT/HCPCS: 74177; 80053; 81001; 83690; 85025; 96374; 96375; 99285; J2270; J2405; J7030; Q9967

== ENCOUNTER 2017-05-03 13:50 | Inpatient (IN) | payer OTHER, MEDICARE ==
[~2017-05-03] VITALS: Ht 157.5 cm; Wt 93.3 kg
[~2017-05-03 13:50] MED LIST changes: +DICY10 PO
--- NOTE | 2017-05-03 14:27 | PD ---
HPI Chief Complaint: generalized weakness Time Seen by Provider: 14:22 Travel History International Travel<30 days: No Contact w/Intl Traveler<30days: No History of Present Illness HPI 77 y/o female presents with generalized weakness since being discharged on the . She states she's also been urinating frequently. She states she normally could walk around on her own but now is needing assistance to ambulate. She states that she intermittently gets confused. She is now alert and oriented on my examination. She denies any pain, fever or other concurrent complaints but history is limited on initial evaluation. Ambulance team help supplement history. PFSH Past Medical History Cardiovascular Problems: Yes High Cholesterol: Yes Diabetes: Yes Diminished Hearing: No Genitourinary: No Hypertension: Yes Musculoskeletal: No Neurologic: No Reproductive: No Respiratory: No Past Surgical History Section: Yes (X2) Social History Alcohol Use: No Tobacco Use: No Substance Use: No Allergies-Medications (Allergen,Severity, Reaction): Coded Allergies: No Known Allergies (Unverified , 05/03/17) Reported Meds & Prescriptions Reported Meds & Active Scripts Active Walker with Front Wheels (Device) 1 Mis Mis 1 Ea .ROUTE DIRECTED Reported Ditropan (Oxybutynin Chloride) 5 Mg Tab 5 Mg PO DAILY Lisinopril 20 Mg Tab 20 Mg PO DAILY Levothyroxine (Levothyroxine Sodium) 125 Mcg Tab 125 Mcg PO DAILY Verapamil (Verapamil HCl) 120 Mg Tab 120 Mg PO TID Glipizide 5 Mg Tab 5 Mg PO HS Take 30 minutes before a meal Glipizide 10 Mg Tab 10 Mg PO DAILY Take 30 minutes before a meal Metformin (Metformin HCl) 500 Mg Tab 500 Mg PO HS With meals Metformin (Metformin HCl) 1,000 Mg Tab 1,000 Mg PO BID With meals Review of Systems ROS Limitations: Poor Historian Except as stated in HPI: all other systems reviewed are Neg Physical Exam Exam Limitations: Poor Historian Narrative GENERAL: Well-nourished, well-developed patient. SKIN: Warm and dry. HEAD: Normocephalic and atraumatic. EYES: No injection or drainage. ENT: No nasal drainage noted. NECK: Supple, trachea midline. CARDIOVASCULAR: Regular rate and rhythm RESPIRATORY: No increased effort. No accessory muscle use. GASTROINTESTINAL: Abdomen soft, non-tender, nondistended. NEUROLOGICAL: Awake and alert to date, location, name. Motor and sensory grossly within normal limits. Normal speech. No pronator drift, equal grasp bilaterally, no facial droop Data Data Last Documented VS Vital Signs Date Time Temp Pulse Resp B/P (MAP) Pulse Ox O2 Delivery O2 Flow Rate FiO2 05/03/17 15:27 98.2 86 16 145/78 (100) 05/03/17 15:26 97 Room Air Orders Orders Electrocardiogram (05/03/17 14:22) Complete Blood Count With Diff (05/03/17 14:22) Comprehensive Metabolic Panel (05/03/17 14:22) Creatine Kinase (Cpk) (05/03/17 14:22) Prothrombin Time / Inr (Pt) (05/03/17 14:22) Act Partial Throm Time (Ptt) (05/03/17 14:22) Troponin I (05/03/17 14:22) Urinalysis - C+S If Indicated (05/03/17 14:22) Chest, Single Ap (05/03/17 14:22) Ct Brain W/O Iv Contrast(Rout) (05/03/17 14:22) Ecg Monitoring (05/03/17 14:22) Iv Access Insert/Monitor (05/03/17 14:22) Oximetry (05/03/17 14:22) Sodium Chloride 0.9% Flush (Ns Flush) (05/03/17 14:30) Urine Culture (05/03/17 14:45) Admit Order (Ed Use Only) (05/03/17 16:17) Admit To Inpatient (05/03/17 ) Vital Signs (Adult) Q4H (05/03/17 16:15) Activity Oob With Assistance (05/03/17 16:15) Laundry Attendant / Telemetry .CONTINUOUS (05/03/17 16:15) Intake + Output MARY.QSHIFT (05/03/17 16:15) Diet Npo (05/03/17 Dinner) Sodium Chlor 0.45% 1000 Ml Inj (1/2 Ns 1 (05/03/17 16:15) Sodium Chloride 0.9% Flush (Ns Flush) (05/03/17 16:15) Sodium Chloride 0.9% Flush (Ns Flush) (05/03/17 21:00) Acetaminophen (Tylenol) (05/03/17 16:15) Ondansetron Inj (Zofran Inj) (05/03/17 16:15) Scd Bilateral/Knee High MARY.BID (05/03/17 16:15) Naloxone Inj (Narcan Inj) (05/03/17 16:15) Docusate Sodium-Senna (Merlene-Colace) (05/03/17 21:00) Magnesium Hydroxide Liq (Milk Of Magnesi (05/03/17 16:15) Sennosides (Senokot) (05/03/17 16:15) Bisacodyl Supp (Dulcolax Supp) (05/03/17 16:15) Lactulose Liq (Lactulose Liq) (05/03/17 16:15) Inpatient Certification (05/03/17 ) Ceftriaxone Inj (Rocephin Inj) (05/03/17 16:30) Labs Laboratory Tests Test 05/03/17 14:45 White Blood Count 8.5 TH/MM3 Red Blood Count 4.59 MIL/MM3 Hemoglobin 12.5 GM/DL Hematocrit 38.3 % Mean Corpuscular Volume 83.5 FL Mean Corpuscular Hemoglobin 27.2 PG Mean Corpuscular Hemoglobin Concent 32.6 % Red Cell Distribution Width 14.6 % Platelet Count 255 TH/MM3 Mean Platelet Volume 8.4 FL Neutrophils (%) (Auto) 69.2 % Lymphocytes (%) (Auto) 22.4 % Monocytes (%) (Auto) 7.2 % Eosinophils (%) (Auto) 0.7 % Basophils (%) (Auto) 0.5 % Neutrophils # (Auto) 5.9 TH/MM3 Lymphocytes # (Auto) 1.9 TH/MM3 Monocytes # (Auto) 0.6 TH/MM3 Eosinophils # (Auto) 0.1 TH/MM3 Basophils # (Auto) 0.0 TH/MM3 CBC Comment DIFF FINAL Differential Comment Prothrombin Time 11.0 SEC Prothromb Time International Ratio 1.0 RATIO Activated Partial Thromboplast Time 21.5 SEC Urine Color LIGHT-YELLOW Urine Turbidity CLEAR Urine pH 5.5 Urine Specific [place] 1.007 Urine Protein TRACE mg/dL Urine Glucose (UA) NEG mg/dL Urine Ketones NEG mg/dL Urine Occult Blood NEG Urine Nitrite NEG Urine Bilirubin NEG Urine Urobilinogen LESS THAN 2.0 MG/DL Urine Leukocyte Esterase NEG Urine RBC 1 /hpf Urine WBC 1 /hpf Urine Bacteria RARE /hpf Microscopic Urinalysis Comment CATH-CULTURE IND Blood Urea Nitrogen 17 MG/DL Creatinine 0.95 MG/DL Random Glucose 111 MG/DL Total Protein 8.0 GM/DL Albumin 3.4 GM/DL Calcium Level 8.8 MG/DL Alkaline Phosphatase 53 U/L Aspartate Amino Transf (AST/SGOT) 23 U/L Alanine Aminotransferase (ALT/SGPT) 31 U/L Total Bilirubin 0.8 MG/DL Sodium Level 132 MEQ/L Potassium Level 4.6 MEQ/L Chloride Level 101 MEQ/L Carbon Dioxide Level 19.6 MEQ/L Anion Gap 11 MEQ/L Estimat Glomerular Filtration Rate 57 ML/MIN Total Creatine Kinase 48 U/L Troponin I LESS THAN 0.02 NG/ML MDM Medical Decision Making Medical Screen Exam Complete: Yes Emergency Medical Condition: Yes Medical Record Reviewed: Yes (past history confirm, recent ER visit for abdominal pain reviewed) Interpretation(s) CBC & BMP Diagram 05/03/17 14:45 Albumin 3.4, Calcium Level 8.8, Aspartate Amino Transf (AST/SGOT) 23 Last [address] 05/03/17 1422 Signed Impressions: Service Date/Time: Wednesday, May 03, 2017 15:09 - CONCLUSION: 1. Moderate severity central cortical atrophy. 2. Focal hyperdensity in the dependent left occipital horn suggests layering blood. 3. No evidence of intraparenchymal or extra axial blood products. Abdiel Syed MD Chest X-Ray 05/03/17 1422 Signed Impressions: Service Date/Time: Wednesday, May 03, 2017 14:40 - CONCLUSION: No acute disease. Abdiel Fisher Jr., MD Differential Diagnosis UTI, electrolyte abnormality, anemia, deconditioning, intracranial Narrative Course Will check blood work, imaging, urinalysis and reevaluate CT brain shows bleeding within occipital ventricular horn, patient and updated. Agree to admission and neurosurgery consultation Physician Communication Physician Communication dr dumont states to admit to medicine, nothing for him to do when he reviewed the CT dr medina agrees to admit Diagnosis Primary Impression: Intraventricular hemorrhage Additional Impression: Weakness generalized Admitting Information Admitting Physician Requests: Admit Mariella Cortes MD May 03, 2017 14:27
[2017-05-03] MEDS ORDERED: SODIUM CHLORIDE 0.9% FLUSH 5 ML FLUSH IV FLUSH PRN (14:30)
--- NOTE | 2017-05-03 14:58 | RADRPT ---
EXAM DATE/TIME: 05/03/2017 14:40 [facility] COMPARISON: No previous studies available for comparison. INDICATIONS : Forgetful, weak. MEDICAL HISTORY : Hypertension. Cardiovascular disease. hx of subdural hematoma, diabetes SURGICAL HISTORY : None. ENCOUNTER: Initial ACUITY: 1 day PAIN SCORE: 0/10 LOCATION: Bilateral chest FINDINGS: A single view of the chest demonstrates the lungs to be symmetrically aerated without evidence of mas s, infiltrate or effusion. The cardiomediastinal contours are unremarkable. Osseous structures are intact. CONCLUSION: No acute disease. Abdiel Fisher Jr., MD on May 03, 2017 at 14:56 Board Certified Radiologist. This report was verified electronically.
[2017-05-03 15:14] LABS: AUTOMATED NEUTROPHIL # 5.9 TH/MM3 (1.8-7.7); BASOPHIL % 0.5 % (0.0-2.0); EOSINOPHIL # 0.1 TH/MM3 (0-0.4); EOSINOPHIL % 0.7 % (0.0-4.0); HEMATOCRIT 38.3 % (35.0-46.0); HEMO FLAGS DIFF FINAL; LYMPH % 22.4 % (9.0-44.0); LYMPHOCYTE # 1.9 TH/MM3 (1.0-4.8); MEAN CELL VOLUME 83.5 FL (80.0-100.0); MEAN CORPUSCULAR HEMOGLOBIN 27.2 PG (27.0-34.0); MEAN CORPUSCULAR HGB CONC 32.6 % (32.0-36.0); MONO % 7.2 % (0.0-8.0); NEUT % 69.2 % (16.0-70.0); PLATELET COUNT 255 TH/MM3 (150-450); RED BLOOD COUNT 4.59 MIL/MM3 (4.00-5.30); RED CELL DISTRIBUTION WIDTH 14.6 % (11.6-17.2); WHITE BLOOD COUNT 8.5 TH/MM3 (4.0-11.0)
[2017-05-03 15:20] LABS: BACTERIA, URINE RARE /hpf; BLOOD, URINE NEG (NEG); GLUCOSE,URINE NEG (NEG); KETONE, URINE NEG (NEG); NITRITE,URINE NEG (NEG); PH, URINE 5.5 (5.0-8.5); URINE COLOR LIGHT-YELLOW (YELLW/STRAW)
[2017-05-03 15:24] LABS: APTT (PATIENT) 21.5 SEC (24.3-30.1)
[2017-05-03 15:26] VITALS: BP 145/78; PULSE 86; RESP 16; O2SAT 97
[2017-05-03 15:27] VITALS: BP 145/78; PULSE 86; RESP 16; TEMP 98.2
[2017-05-03 15:28] LABS: COMMENT (UR) CATH-CULTURE IND; CULTURE IF INDICATED CATH CULTURE IND
[2017-05-03 15:35] LABS: ANION GAP 11 MEQ/L (5-15); AST (GOT) 23 U/L (15-37); BICARBONATE 19.6 MEQ/L (21.0-32.0); CHLORIDE 101 MEQ/L (98-107); GLOMERULAR FILTRATION RATE 57 ML/MIN (>89); POTASSIUM 4.6 MEQ/L (3.5-5.1); SODIUM (NA) 132 MEQ/L (136-145)
--- NOTE | 2017-05-03 15:35 | RADRPT ---
EXAM DATE/TIME: 05/03/2017 15:09 [facility] COMPARISON: CT BRAIN W/O CONTRAST, July 10, 2016, 5:37. INDICATIONS : Altered mental status. RADIATION DOSE: 41.95 CTDIvol (mGy) MEDICAL HISTORY : Hypertension. Diabetes mellitus type 2. SURGICAL HISTORY : None. ENCOUNTER: Initial ACUITY: 1 day PAIN SCALE: 0/10 LOCATION: cranial TECHNIQUE: Multiple contiguous axial images were obtained of the head. Using automated exposure control and adj ustment of the mA and/or kV according to patient size, radiation dose was kept as low as reasonably a chievable to obtain optimal diagnostic quality images. DICOM format image data is available electro nically for review and comparison. FINDINGS: CEREBRUM: The ventricles and sulci are prominent. The prior CT in June 2016 demonstrated a parafalcine sub dural hematoma. No thickening of the falx on today's examination. The enlargement of the ventricles is a new finding from the prior examination. There is also some layering material with in the depen dent left occipital horn, best seen on image #14, suggesting intraventricular blood products. No chema dence of drainable mass or hemorrhage. No extra-axial fluid or blood. POSTERIOR FOSSA: The cerebellum and brainstem are intact. The 4th ventricle is midline. The cerebellopontine angle i s unremarkable. EXTRACRANIAL: The visualized portion of the orbits is intact. SKULL: The calvaria is intact. No evidence of skull fracture. CONCLUSION: 1. Moderate severity central cortical atrophy. 2. Focal hyperdensity in the dependent left occipital horn suggests layering blood. 3. No evidence of intraparenchymal or extra axial blood products. Abdiel Syed MD on May 03, 2017 at 15:30 Board Certified Radiologist. This report was verified electronically.
[2017-05-03 15:53] LABS: ALKALINE PHOSPHATASE 53 U/L (45-117); ALT (GPT) 31 U/L (10-53); BLOOD UREA NITROGEN 17 MG/DL (7-18); TOTAL BILIRUBIN ADULT 0.8 MG/DL (0.2-1.0)
[2017-05-03 16:01] LABS: CREATINE KINASE 48 U/L (26-192)
[2017-05-03] MEDS ORDERED: SODIUM CHLORIDE 0.9% FLUSH 10 ML FLUSH IV FLUSH PRN (16:15)
[2017-05-03] MEDS ORDERED: MAGNESIUM HYDROXIDE SUSP 30 ML CUP PO PRN (16:15)
[2017-05-03] MEDS ORDERED: BISACODYL 10 MG SUPP RECTAL PRN (16:15)
[2017-05-03] MEDS ORDERED: ONDANSETRON HCL 4 MG/2 ML VIAL IVP PRN (16:15)
[2017-05-03] MEDS ORDERED: NALOXONE HCL 0.4 MG/ML AMP IV PUSH PRN (16:15)
[2017-05-03] MEDS ORDERED: LACTULOSE SYRUP 20 GM/30 ML CUP PO PRN (16:15)
[2017-05-03] MEDS ORDERED: ACETAMINOPHEN 325 MG TAB PO PRN (16:15)
[2017-05-03] MEDS ORDERED: SENNOSIDES 8.6 MG TAB PO PRN (16:15)
[2017-05-03 16:56] VITALS: BP 140/72
[2017-05-03 17:38] VITALS: BP 202/98; PULSE 86; RESP 18; TEMP 97.8; O2SAT 96
[2017-05-03] MEDS: SODIUM CHLOR 0.45% 1000 ML INJ 1,000 ML IV SCH (17:38)
[2017-05-03] MEDS: cefTRIAXone INJ 1,000 MG in SODIUM CHLORIDE 0.9% INJ 100 ML IV SCH (17:41)
[2017-05-03] MEDS ORDERED: DEXTROSE 50% IN WATER 50 ML VIAL(D50) IV PUSH PRN (18:00)
[2017-05-03] MEDS ORDERED: GLUCAGON 1 MG/ML VIAL OTHER PRN (18:00)
--- NOTE | 2017-05-03 18:04 | HHI.HP ---
HPI Service [facility] Primary Care Physician Niles Monzon MD Admission Diagnosis interventricular hemorrhage Diagnoses: Chief Complaint: Altered mental status, lethargy, generalized weakness, difficulty with memory Travel History International Travel<30 Days: No Contact w/Intl Traveler <30 Da: No Traveled to Known Affected Are: No History of Present Illness This is a 77 y/o female past medical history of prior intracranial bleed secondary to trauma one year ago, hypertension, type 2 diabetes, hypothyroidism , overactive bladder, and hyperlipidemia who presented with lethargy, memory loss, altered mental status, and generalized weakness. Patient due to current illness is of poor historian prior was very sharp and able to give a history without any difficulty. Patient's is at the bedside and history is obtained from the . stated that 11 days ago patient had lower abdominal pain in which he brought his to the emergency department. He stated patient had a full workup including CT scan abdomen which were all negative so patient was sent home. Patient then saw her primary care physician 2 days later in which she was told to stop her oral hypoglycemic medication. Patient continues to decline in regards to memory loss, difficulty finding words , altered mental status, lethargy and generalized weakness. Patient also didn' t develop a headache in which gave a full dose of aspirin 325 mg. He also stated that patient takes aspirin 81 mg daily due to her age and as preventive measure. Patient does not take any other blood thinners. She denies any trauma or falls. stated since her symptoms worsen it was similar to when she had prior intracranial bleed he went pop patient to the emergency department. Patient also complained about increased urinary frequency today. She denies any dysuria. Patient able to tell me her first and last name, she knew she was in the hospital but she was in [place], able to give a month but not year. Per patient's this is not her baseline. Patient was seen on the fifth floor and nurse was at the bedside during part of the interview. When nurse was doing her assessment and obtain her blood pressure systolic blood pressure was 202. I told the charge nurse and patient' s nurse that patient needs to go to intensive care unit stat so that blood pressure can be tightly control especially since patient has intracranial bleed. Symptoms were the same. Her systolic blood pressure in the emergency department was running in the 140s. In the ED Dr. Cortes spoke to neurosurgeon Dr. Rosa in regards to results and he stated that from his standpoint he does not need to be consulted and there is not any intervention that he can do and recommends a repeat CT scan of the head tomorrow morning. All other review of systems reviewed and negative. Past Family Social History Past Medical History Hypertension, hypothyroidism, type 2 diabetes, overactive bladder, hyperlipidemia Past Surgical History C-sections 2 Reported Medications Ditropan (Oxybutynin Chloride) 5 Mg Tab 5 Mg PO DAILY Lisinopril 20 Mg Tab 20 Mg PO DAILY Levothyroxine (Levothyroxine Sodium) 125 Mcg Tab 125 Mcg PO DAILY Verapamil (Verapamil HCl) 120 Mg Tab 120 Mg PO TID Glipizide 5 Mg Tab 5 Mg PO HS Take 30 minutes before a meal Glipizide 10 Mg Tab 10 Mg PO DAILY Take 30 minutes before a meal Metformin (Metformin HCl) 500 Mg Tab 500 Mg PO HS With meals Metformin (Metformin HCl) 1,000 Mg Tab 1,000 Mg PO BID With meals Allergies: Coded Allergies: No Known Allergies (Unverified , 05/03/17) Active Ordered Medications Current Medications IV Flush (NS Flush) 2 ml UNSCH PRN IV FLUSH FLUSH AFTER USING IV ACCESS; Start 05/03/17 at 14:30 Sodium Chloride 1,000 ml @ 75 mls/hr [id number] IV Last administered on t 17:38; Start 05/03/17 at 16:15 Sodium Chloride (NS Flush) 2 ml UNSCH PRN IV FLUSH FLUSH AFTER USING IV ACCESS ; Start 05/03/17 at 16:15 Sodium Chloride (NS Flush) 2 ml BID IV FLUSH ; Start 05/03/17 at 21:00 Acetaminophen (Tylenol) 650 mg Q4H PRN PO TEMP > 100.4; Start 05/03/17 at 16: 15 Ondansetron HCl (Zofran Inj) 4 mg Q6H PRN IVP NAUSEA OR VOMITING; Start at 16:15 Naloxone HCl (Narcan Inj) 0.4 mg UNSCH PRN IV PUSH SEE LABEL COMMENTS; Start 05/03/17 at 16:15 Senna/Docusate Sodium (Merlene-Colace) 1 tab BID PO ; Start 05/03/17 at 21:00 Magnesium Hydroxide (Milk Of Magnesia Liq) 30 ml Q12H PRN PO Mild constipation ; Start 05/03/17 at 16:15 Sennosides (Senokot) 17.2 mg Q12H PRN PO Moderate constipation; Start at 16:15 Bisacodyl (Dulcolax Supp) 10 mg DAILY PRN RECTAL SEVERE CONSITIPATION; Start 05/03/17 at 16:15 Lactulose (Lactulose Liq) 30 ml DAILY PRN PO SEVERE CONSITIPATION; Start 05/03 at 16:15 Ceftriaxone Sodium 1000 mg/ Sodium Chloride 100 ml @ 200 mls/hr Q24H IV Last administered on 05/03/17t 17:41; Start 05/03/17 at 17:00 Enalaprilat (Vasotec Inj) 2.5 mg Q6H PRN IV PUSH SBP>150 or DBP>100; Start at 17:30; Status UNV Nicardipine HCl 25 mg/Sodium Chloride 250 ml @ 50 mls/hr TITRATE PRN IV Blood pressure management; Start 05/03/17 at 17:30; Status UNV Family History Father had a history of MD. Social History Patient was at home with . She was independent prior from this episode. Denies any alcohol, tobacco, illicit drug use. Physical Exam Vital Signs Vital Signs Date Time Temp Pulse Resp B/P (MAP) Pulse Ox O2 Delivery O2 Flow Rate FiO2 05/03/17 17:38 97.8 86 18 202/98 (132) 96 05/03/17 16:56 16 140/72 (94) 97 05/03/17 15:27 98.2 86 16 145/78 (100) 05/03/17 15:26 86 16 145/78 (100) 97 Room Air Physical Exam GENERAL: This is a well-nourished, well-developed patient, in no apparent distress. SKIN: No rashes, ecchymoses or lesions. Cool and dry. HEAD: Atraumatic. Normocephalic. No temporal or scalp tenderness. EYES: Pupils equal round and reactive. Extraocular motions intact. No scleral icterus. No injection or drainage. ENT: Nose without bleeding, purulent drainage or septal hematoma. Throat without erythema, tonsillar hypertrophy or exudate. Uvula midline. Airway patent. NECK: Trachea midline. No JVD or lymphadenopathy. Supple, nontender, no meningeal signs. CARDIOVASCULAR: Regular rate and rhythm without murmurs, gallops, or rubs. RESPIRATORY: Clear to auscultation. Breath sounds equal bilaterally. No wheezes , rales, or rhonchi. GASTROINTESTINAL: Abdomen soft, non-tender, nondistended. No hepato-splenomegaly , or palpable masses. No guarding. MUSCULOSKELETAL: Extremities without clubbing, cyanosis, or edema. No joint tenderness, effusion, or edema noted. No calf tenderness. Negative Homans sign bilaterally. NEUROLOGICAL: Awake and alert but is unable to give me a history. Her speech is normal but she seems to be having difficulty with her memory. Cranial nerves II through XII intact. Sensation grossly intact. 5 out of 5 opportunities strength. Patient able to lift her legs but when I apply resistant she dropped quickly stated because of back pain. Otherwise lower extremity strength is intact. Laboratory Laboratory Tests Test 05/03/17 14:45 White Blood Count 8.5 Red Blood Count 4.59 Hemoglobin 12.5 Hematocrit 38.3 Mean Corpuscular Volume 83.5 Mean Corpuscular Hemoglobin 27.2 Mean Corpuscular Hemoglobin Concent 32.6 Red Cell Distribution Width 14.6 Platelet Count 255 Mean Platelet Volume 8.4 Neutrophils (%) (Auto) 69.2 Lymphocytes (%) (Auto) 22.4 Monocytes (%) (Auto) 7.2 Eosinophils (%) (Auto) 0.7 Basophils (%) (Auto) 0.5 Neutrophils # (Auto) 5.9 Lymphocytes # (Auto) 1.9 Monocytes # (Auto) 0.6 Eosinophils # (Auto) 0.1 Basophils # (Auto) 0.0 CBC Comment DIFF FINAL Differential Comment Prothrombin Time 11.0 Prothromb Time International Ratio 1.0 Activated Partial Thromboplast Time 21.5 Urine Color LIGHT-YELLOW Urine Turbidity CLEAR Urine pH 5.5 Urine Specific [place] 1.007 Urine Protein TRACE Urine Glucose (UA) NEG Urine Ketones NEG Urine Occult Blood NEG Urine Nitrite NEG Urine Bilirubin NEG Urine Urobilinogen LESS THAN 2.0 Urine Leukocyte Esterase NEG Urine RBC 1 Urine WBC 1 Urine Bacteria RARE Microscopic Urinalysis Comment CATH-CULTURE IND Blood Urea Nitrogen 17 Creatinine 0.95 Random Glucose 111 Total Protein 8.0 Albumin 3.4 Calcium Level 8.8 Alkaline Phosphatase 53 Aspartate Amino Transf (AST/SGOT) 23 Alanine Aminotransferase (ALT/SGPT) 31 Total Bilirubin 0.8 Sodium Level 132 Potassium Level 4.6 Chloride Level 101 Carbon Dioxide Level 19.6 Anion Gap 11 Estimat Glomerular Filtration Rate 57 Total Creatine Kinase 48 Troponin I LESS THAN 0.02 Date/Time Source Procedure Growth Status 05/03/17 14:45 Urine Catheterized Urine Urine Culture Pending Received Result Diagram: 05/03/17 1445 05/03/17 1445 Imaging Last Impressions Head CT 05/03/171421 Signed Impressions: Service Date/Time: Wednesday, May 03, 2017 15:09 - CONCLUSION: 1. Moderate severity central cortical atrophy. 2. Focal hyperdensity in the dependent left occipital horn suggests layering blood. 3. No evidence of intraparenchymal or extra axial blood products. Abdiel Syed MD Chest X-Ray 05/03/171421 Signed Impressions: Service Date/Time: Wednesday, May 03, 2017 14:40 - CONCLUSION: No acute disease. Abdiel Fisher Jr., MD [place] VTE Risk Assessment Caprini VTE Risk Assessment: Mod/High Risk (score >= 2) VTE Pharm Contraindication: Hemorrhage Caprini Risk Assessment Model Point Value = 1 Point Value = 2 Point Value = 3 Point Value = 5 Age 41-60 Minor surgery BMI > 25 kg/m2 Swollen legs Varicose veins or History of unexplained or recurrent spontaneous Oral contraceptives or hormone replacement Sepsis (< 1 month) Serious lung disease, including pneumonia (< 1 month) Abnormal pulmonary function Acute myocardial infarction Congestive heart failure (< 1 month) History of inflammatory bowel disease Medical patient at bed rest Age 61-74 Arthroscopic surgery Major open surgery (> 45 min) Laparoscopic surgery (> 45 min) Malignancy Confined to bed (> 72 hours) Immobilizing plaster cast Central venous access Age >= 75 History of VTE Family history of VTE Factor V Leiden Prothrombin [id number] Lupus anticoagulant Anticardiolipin antibodies Elevated serum homocysteine Heparin-induced thrombocytopenia Other congenital or acquired thrombophilia Stroke (< 1 month) Elective arthroplasty Hip, pelvis, or leg fracture Acute spinal cord injury (< 1 month) Prophylaxis Regimen Total Risk Factor Score Risk Level Prophylaxis Regimen 0-1 Low Early ambulation 2 Moderate Order ONE of the following: *Sequential Compression Device (SCD) *Heparin 5000 units SQ BID 3-4 Higher Order ONE of the following medications: *Heparin 5000 units SQ TID *Enoxaparin/Lovenox 40 mg SQ daily (WT < 150 kg, CrCl > 30 mL/min) *Enoxaparin/Lovenox 30 mg SQ daily (WT < 150 kg, CrCl > 10-29 mL/min) *Enoxaparin/Lovenox 30 mg SQ BID (WT < 150 kg, CrCl > 30 mL/min) AND/OR *Sequential Compression Device (SCD) 5 or more Highest Order ONE of the following medications: *Heparin 5000 units SQ TID (Preferred with Epidurals) *Enoxaparin/Lovenox 40 mg SQ daily (WT < 150 kg, CrCl > 30 mL/min) *Enoxaparin/Lovenox 30 mg SQ daily (WT < 150 kg, CrCl > 10-29 mL/min) *Enoxaparin/Lovenox 30 mg SQ BID (WT < 150 kg, CrCl > 30 mL/min) AND *Sequential Compression Device (SCD) Assessment and Plan Assessment and Plan This is a 77 show female with history of hypertension, type II diarrhea diabetes , hypothyroidism, overactive bladder, hyperlipidemia, history of intracranial bleed secondary to trauma who presented with altered mental status Altered mental status -Symptoms include lethargy, difficulty with memory, generalized weakness -CT scan of the head shows increased hyperdensity of the left occipital horn suggesting intracranial bleed. -Otherwise labs reviewed relatively normal. -See treatment as below. -Will consult neurologist. Left occipital horn intraconal bleed -Neurosurgeon consulted over the phone by Dr. Cortes in the emergency department. No indication for neurosurgeon consult per Dr. Rosa. Recommend repeat CT scan of the brain tomorrow. -Will obtain neuro checks. -Continue to monitor neurological exams. -At the moment I did not recommend any aspirin use to the patient and . -Avoid any blood thinners. Hypertensive emergency -Initially blood pressure was controlled in the emergency department but when patient was on the floor her systolic pressure was in 202 with no new symptoms. -Will need tight control of blood pressure especially with intracranial bleed. -Transferred to the intensive care unit stat. Discussed with patient's nurse and charge nurse in regards to this. -Will put patient on Cardene drip which will be started in the intensive care unit. In the meantime will give Vasotec or/and clonidine for systolic blood pressure greater than 150 or diastolic blood pressure in 100. -Continue to monitor neuro exams. Hypertension/hypothyroidism/overactive bladder/hyponatremia/type 2 diabetes -Resume home medication but will hold metformin. -Start patient on insulin sliding scale and hypoglycemia protocol needed. DVT prophylaxis -SCDs. Chemoprophylaxis contraindicated. Discussed Condition With patient, patient's nurse on the floor, distal charge nurse, and patient's . Physician Certification 2 Midnight Certification Type: Admission for Inpatient Services Order for Inpatient Services The services are ordered in accordance with Medicare regulations or non- Medicare payer requirements, as applicable. In the case of services not specified as inpatient-only, they are appropriately provided as inpatient services in accordance with the 2-midnight benchmark. Estimated LOS (days): 3 3 days is the estimated time the patient will need to remain in the hospital, assuming treatment plan goals are met and no additional complications. Post-Hospital Plan: SNF Daisy Ayala MD May 03, 2017 18:04
[2017-05-03] MEDS: cloNIDine HCL 0.1 MG TAB PO PRN (18:21)
[2017-05-03] MEDS ORDERED: CHLORHEXIDINE GLUCONATE 2 % 1 PACK (2 CLOTHS)(extra cloths) TOPICAL PRN (19:30)
[2017-05-03 20:00] VITALS: BP 135/62; PULSE 96; RESP 26; TEMP 98; O2SAT 95
[2017-05-03] MEDS: INSULIN ASPART SUPPLEMENTAL SCALE SQ SCH (21:00)
[2017-05-03] MEDS: DOCUSATE SODIUM 50 MG/SENNA 8.6 MG TAB PO SCH (21:00)
[2017-05-03] MEDS: SODIUM CHLORIDE 0.9% FLUSH 10 ML FLUSH IV FLUSH SCH (21:07)
[2017-05-03] MEDS: niCARdipine INJ 25 MG in SODIUM CHLOR 0.9% 250 ML INJ 240 ML IV PRN (21:09)
--- NOTE | 2017-05-03 21:53 | EKG ---
Date Performed: 05/03/2017 Time Performed: 15:45:21 PTAGE: 77 years EKG: Sinus rhythm BORDERLINE LEFT AXIS DEVIATION BORDERLINE ECG PREVIOUS TRACING : 07/07/2016 18.02 Compared to prior tracing no significant change DOCTOR: Bruce Napoles Interpretating Date/Time 05/03/2017 21:51:38
[2017-05-04] VITALS (10 sets, daily range): BP systolic 139–157; BP diastolic 68–83; PULSE 80–103; RESP 22–31; TEMP 98.1–98.5; O2SAT 94–100
[2017-05-04] MEDS: CHLORHEXIDINE GLUCONATE 2 % 1 PACK (2 CLOTHS)(taper/protocol) TOPICAL SCH ×2 (01:53→21:41)
[2017-05-04] MEDS: SODIUM CHLOR 0.45% 1000 ML INJ 1,000 ML IV SCH ×2 (04:13→17:28)
[2017-05-04] MEDS: niCARdipine INJ 25 MG in SODIUM CHLOR 0.9% 250 ML INJ 240 ML IV PRN ×5 (04:13→17:40)
--- NOTE | 2017-05-04 05:21 | RADRPT ---
EXAM DATE/TIME: 05/04/2017 04:39 [facility] COMPARISON: CT BRAIN W/O CONTRAST, May 03, 2017, 15:09. INDICATIONS : Alterded mental status. Follow up hemorrhage. RADIATION DOSE: 34.12 CTDIvol (mGy) MEDICAL HISTORY : Hypertension. Diabetes mellitus type 2. SURGICAL HISTORY : None. ENCOUNTER: Subsequent ACUITY: 1 day PAIN SCALE: 0/10 LOCATION: cranial TECHNIQUE: Multiple contiguous axial images were obtained of the head. Using automated exposure control and adj ustment of the mA and/or kV according to patient size, radiation dose was kept as low as reasonably a chievable to obtain optimal diagnostic quality images. DICOM format image data is available electro nically for review and comparison. FINDINGS: There is marked central and cortical atrophy with dilatation of ventricular and sulcal spaces. Minima l intraventricular blood again seen within the left lateral ventricle, posterior horn. Scattered area s of low attenuation throughout the white matter. There is no parenchymal hemorrhage, acute infarctio n or mass lesion identified. There are no extra-axial fluid collections appreciated. The posterior fossa is unremarkable with midline fourth ventricle. The portion of the orbits and paranasal sinuses visualized are unremarkable. CONCLUSION: 1. Cerebral atrophy and chronic ischemic small vessel vasculopathy. 2. Minimal intraventricular hemorrhage. Bruno Bay MD on May 04, 2017 at 5:18 Board Certified Radiologist. This report was verified electronically.
[2017-05-04 06:53] LABS: HEMATOCRIT 41.8 % (35.0-46.0); MEAN CELL VOLUME 82.2 FL (80.0-100.0); MEAN CORPUSCULAR HEMOGLOBIN 27.3 PG (27.0-34.0); MEAN CORPUSCULAR HGB CONC 33.2 % (32.0-36.0); PLATELET COUNT 314 TH/MM3 (150-450); RED BLOOD COUNT 5.09 MIL/MM3 (4.00-5.30); RED CELL DISTRIBUTION WIDTH 14.5 % (11.6-17.2); REVIEW FLAG FINAL
[2017-05-04 07:24] LABS: POTASSIUM 4.2 MEQ/L (3.5-5.1)
[2017-05-04] MEDS: INSULIN ASPART SUPPLEMENTAL SCALE SQ SCH ×4 (08:00→21:00)
[2017-05-04] MEDS: SODIUM CHLORIDE 0.9% FLUSH 10 ML FLUSH IV FLUSH SCH ×2 (08:37→21:41)
[2017-05-04] MEDS: DOCUSATE SODIUM 50 MG/SENNA 8.6 MG TAB PO SCH ×2 (08:37→21:40)
--- NOTE | 2017-05-04 11:10 | MB ---
cc: MAYTE WELLS M.D. DATE OF CONSULTATION: 05/04/2017 HISTORY OF PRESENT ILLNESS The patient is a 77-year-old woman seen in neurological consultation. She came to the hospital yesterday with a history of lethargy, weakness. She is described by her as having had a neurologic setback in the past 10 days or so. She was treated for abdominal pain recently and ever since she has become progressively weaker and more lethargic and mentally not as bright as before. Then a couple of days ago she had a more severe headache and the gave her a regular aspirin. She normally takes a baby aspirin daily. Today she seems more alert than yesterday. PAST MEDICAL HISTORY 1. History of an intracranial bleed about a year ago and it took "39 days" for her to be fully recovered from that. 2. Hypertension. 3. Diabetes. 4. Hyperlipidemia. MEDICATIONS She is now being treated for hypertension on Cardene. The home medications included lisinopril, levothyroxine, Verapamil, glipizide, metformin, baby aspirin and Ditropan. NEUROLOGICAL EXAMINATION Neurological exam showed the patient to be mildly lethargic, awake, pleasant and cooperative. She was able to give me the place and only knew the specific date when her told her yesterday was her birthday. She has no complaints of headache at this point. She feels weak. Pupils were equal and reactive. Ocular movements and visual trimble are full. There is no facial weakness. She moves all extremities in a symmetrical manner. She raises the legs and dorsiflexes the feet and opposes moderate resistance. [id number] testing is normal. Reflexes were trace versus absent throughout and plantar response is flexor bilaterally. IMAGING CT brain today and yesterday were reviewed, and show a tiny area of blood in the posterior right occipital horn. Stable findings. LABORATORY Laboratory data is also reviewed. CBC is normal. Sodium today is 127, but was 132 yesterday. Glucose today 249. BUN and creatinine normal. ASSESSMENT Encephalopathy. There is a very small right occipital ventricle hemorrhage that is stable. PLAN/RECOMMENDATIONS I will follow the patient. If there is any worsening of her mentation then we will also obtain an MRI brain without contrast. Otherwise, would expect her encephalopathic state to improve gradually as she did one year ago after some intracranial hemorrhage. I suggested that she avoid any aspirin from now on and I have discussed this with the , even the baby aspirin. Current hypertension management with Cardene, to keep blood pressure under 140-150/90. Thank you for asking us to assist in her care. MD PERLA Viera/BT /10:40 AM /10:58 AM
--- NOTE | 2017-05-04 11:31 | HHI.PR ---
Subjective Remarks Follow-up for intracranial bleed is at the bedside. She is doing a lot better. Patient able to give me her name, location, and month. She could not tell me the year she was very frustrated with this. Patient also was able to tell me that it was her birthday yesterday. She was much more alert today compared to yesterday. Patient also stated back pain has resolved and she felt a lot better. Patient continues to be on the Cardene drip. Discussed with patient's nurse. Objective Vitals Vital Signs Date Time Temp Pulse Resp B/P (MAP) Pulse Ox O2 Delivery O2 Flow Rate FiO2 05/04/17 10:00 102 05/04/17 08:35 106 152/67 05/04/17 08:00 98.1 103 26 157/74 (101) 100 05/04/17 08:00 103 05/04/17 04:13 110 145/68 05/04/17 04:00 98.2 100 27 145/68 (93) 94 05/04/17 00:00 98.1 103 22 141/71 (94) 95 05/03/17 21:09 102 145/67 05/03/17 20:00 98.0 96 26 135/62 (86) 95 05/03/17 17:38 97.8 86 18 202/98 (132) 96 05/03/17 16:56 16 140/72 (94) 97 05/03/17 15:27 98.2 86 16 145/78 (100) 05/03/17 15:26 86 16 145/78 (100) 97 Room Air I/O 05/03/17 05/03/17 05/03/17 05/04/17 05/04/17 05/04/17 07:00 15:00 23:00 07:00 15:00 23:00 Intake Total 100 ml 1240 ml Balance 100 ml 1240 ml Intake Oral 0 ml IV Total 100 ml 1240 ml # Voids 4 # Bowel Movements 0 Result Diagram: 05/04/17 0505/04/17 0540 Objective Remarks GENERAL: in NAD SKIN: Warm and dry. HEAD: Normocephalic. EYES: No scleral icterus. No injection or drainage. NECK: Supple, trachea midline. No JVD or lymphadenopathy. CARDIOVASCULAR: Regular rate and rhythm without murmurs, gallops, or rubs. RESPIRATORY: Breath sounds equal bilaterally. No accessory muscle use. GASTROINTESTINAL: Abdomen soft, non-tender, nondistended. MUSCULOSKELETAL: No cyanosis, or edema. BACK: Nontender without obvious deformity. No CVA tenderness. NEURO: Patient is AAO 2. She was able to give me her name, location and the month. Patient also was able to tell me was her birthday yesterday. She is able to give me current events. Mental status is improving. Speech is normal but still little slow. She has 5 out of 5 upper and lower extremity strength. Sensation is grossly intact. Medications and IVs Current Medications IV Flush (NS Flush) 2 ml UNSCH PRN IV FLUSH FLUSH AFTER USING IV ACCESS; Start 05/03/17 at 14:30; Stop 05/03/17 at 18:17; Status DC Sodium Chloride 1,000 ml @ 75 mls/hr [id number] IV Last administered on 04:13; Start 05/03/17 at 16:15 Sodium Chloride (NS Flush) 2 ml UNSCH PRN IV FLUSH FLUSH AFTER USING IV ACCESS ; Start 05/03/17 at 16:15 Sodium Chloride (NS Flush) 2 ml BID IV FLUSH Last administered on 05/04/17 08 :37; Start 05/03/17 at 21:00 Acetaminophen (Tylenol) 650 mg Q4H PRN PO TEMP > 100.4; Start 05/03/17 at 16: 15 Ondansetron HCl (Zofran Inj) 4 mg Q6H PRN IVP NAUSEA OR VOMITING; Start at 16:15 Naloxone HCl (Narcan Inj) 0.4 mg UNSCH PRN IV PUSH SEE LABEL COMMENTS; Start 05/03/17 at 16:15 Senna/Docusate Sodium (Merlene-Colace) 1 tab BID PO Last administered on 08:37; Start 05/03/17 at 21:00 Magnesium Hydroxide (Milk Of Magnesia Liq) 30 ml Q12H PRN PO Mild constipation ; Start 05/03/17 at 16:15 Sennosides (Senokot) 17.2 mg Q12H PRN PO Moderate constipation; Start at 16:15 Bisacodyl (Dulcolax Supp) 10 mg DAILY PRN RECTAL SEVERE CONSITIPATION; Start 05/03/17 at 16:15 Lactulose (Lactulose Liq) 30 ml DAILY PRN PO SEVERE CONSITIPATION; Start 05/03 at 16:15 Ceftriaxone Sodium 1000 mg/ Sodium Chloride 100 ml @ 200 mls/hr Q24H IV Last administered on 05/03/17 17:41; Start 05/03/17 at 17:00 Enalaprilat (Vasotec Inj) 2.5 mg Q6H PRN IV PUSH SBP>150 or DBP>100; Start at 17:30 Nicardipine HCl 25 mg/Sodium Chloride 250 ml @ 50 mls/hr TITRATE PRN IV Blood pressure management Last administered on 05/04/17 08:35; Start 05/03/17 at 17 :30 Clonidine (Catapres) 0.1 mg Q6H PRN PO SBP>150 or DBP>100 Last administered on 05/03/17 18:21; Start 05/03/17 at 18:00 Dextrose (D50w (Vial) Inj) 50 ml UNSCH PRN IV PUSH HYPOGLYCEMIA-SEE COMMENTS; Start 05/03/17 at 18:00 Glucagon (Glucagon Inj) 1 mg UNSCH PRN OTHER HYPOGLYCEMIA-SEE COMMENTS; Start 05/03/17 at 18:00 Insulin Aspart (NovoLOG SUPPLEMENTAL SCALE) 1 ACHS SLIDING SCALE SQ Last administered on 05/04/17 08:00; Start 05/03/17 at 21:00 Miscellaneous Information Patient in critical care unit? Ass... Q361D .XX Last administered on 05/03/17 19:30; Start 05/03/17 at 19:30 Chlorhexidine Gluconate (Chlorhexidine 2% Cloth) 3 pack DAILY@04 TOPICAL Last administered on 05/04/17 01:53; Start 05/04/17 at 04:00; Stop 05/08/17 at 04 :01 Chlorhexidine Gluconate (Chlorhexidine 2% Cloth) 3 pack UNSCH PRN TOPICAL HYGIENIC CARE; Start 05/03/17 at 19:30; Stop 05/08/17 at 19:20 A/P Assessment and Plan This is a 77 show female with history of hypertension, type II diarrhea diabetes , hypothyroidism, overactive bladder, hyperlipidemia, history of intracranial bleed secondary to trauma who presented with altered mental status Encephalopathy -Symptoms include lethargy, difficulty with memory, generalized weakness -CT scan of the head shows increased hyperdensity of the left occipital horn suggesting intracranial bleed. -UA suggest possible UTI. -See treatment as below. -Neurologist consulted and appreciate assistance of recommendations. Left occipital horn intracranial bleed -Neurosurgeon consulted over the phone by Dr. Cortes in the emergency department. No indication for neurosurgeon consult per Dr. Rosa. -Repeat CT scan the brain stable. -Patient continues to improve. He with neurochecks. -Continue to monitor neurological exams. -Extensive discussion with patient and her and avoiding aspirin and any antiplatelets or blood thinners. Neurologist was also in agreement with this recommendation. Hypertensive emergency -Initially blood pressure was controlled in the emergency department but when patient was on the floor her systolic pressure was in 202 with no new symptoms. -Patient continues to be on the Cardene drip. Will add amlodipine and try to wean off the Cardene drip. Goal blood pressure is less than 150/90. Hypertension/hypothyroidism/overactive bladder/hyponatremia/type 2 diabetes -Resume home medication but will hold metformin. -Continues with insulin sliding scale. DVT prophylaxis -SCDs. Chemoprophylaxis contraindicated. Discharge Planning Discussed with patient's nurse, her and patient herself. Daisy Ayala MD May 04, 2017 11:31
[2017-05-04] MEDS: cloNIDine HCL 0.1 MG TAB PO PRN (12:18)
[2017-05-04] MEDS ORDERED: amLODIPine BESYLATE 5 MG TAB PO SCH (14:15)
[2017-05-04] MEDS: cefTRIAXone INJ 1,000 MG in SODIUM CHLORIDE 0.9% INJ 100 ML IV SCH (15:54)
[2017-05-04] MEDS: VERAPAMIL HCL 120 MG TAB PO SCH ×2 (16:20→18:00)
[2017-05-04] MEDS: ENALAPRILAT 2.5 MG/2 ML VIAL IV PUSH PRN (21:40)
[2017-05-05] VITALS (12 sets, daily range): BP systolic 128–145; BP diastolic 57–68; PULSE 83–101; RESP 23–50; TEMP 98–98.7; O2SAT 92–99
[2017-05-05] MEDS: niCARdipine INJ 25 MG in SODIUM CHLOR 0.9% 250 ML INJ 240 ML IV PRN ×3 (04:08→19:30)
[2017-05-05] MEDS: SODIUM CHLOR 0.45% 1000 ML INJ 1,000 ML IV SCH (06:40)
[2017-05-05] MEDS: DOCUSATE SODIUM 50 MG/SENNA 8.6 MG TAB PO SCH ×2 (08:33→21:53)
[2017-05-05] MEDS: SODIUM CHLORIDE 0.9% FLUSH 10 ML FLUSH IV FLUSH SCH ×2 (08:33→19:30)
[2017-05-05] MEDS: VERAPAMIL HCL 120 MG TAB PO SCH ×3 (08:33→21:53)
[2017-05-05] MEDS: INSULIN ASPART SUPPLEMENTAL SCALE SQ SCH ×4 (09:34→21:00)
--- NOTE | 2017-05-05 09:36 | HHI.PR ---
Subjective Remarks Follow-up for intracranial bleed and hypertensive emergency. Patient stated that she does not know how she is doing but has no complaints. She is able to give me her name, location and city, the date. She is able to answer questions appropriately. Strength is improving. Patient stated that she does not have an appetite. She was taken off the Cardene drip but was put back on it last night. Otherwise no other events or complaints. Discussed with patient's nurse. Objective Vitals Vital Signs Date Time Temp Pulse Resp B/P (MAP) Pulse Ox O2 Delivery O2 Flow Rate FiO2 05/05/17 08:00 98.7 96 24 138/66 (90) 96 05/05/17 06:00 101 05/05/17 04:08 102 136/66 05/05/17 04:00 96 05/05/17 04:00 98.5 96 26 136/66 (89) 94 05/05/17 02:00 94 05/05/17 00:00 93 05/05/17 00:00 98.6 93 25 137/66 (89) 92 05/04/17 22:00 93 05/04/17 21:45 92 164/74 05/04/17 20:00 85 05/04/17 20:00 98.3 85 25 149/83 (105) 96 05/04/17 18:00 80 05/04/17 17:40 83 111/56 05/04/17 16:00 98 05/04/17 16:00 98.5 98 31 139/68 (91) 94 05/04/17 14:40 99 139/65 05/04/17 14:00 97 05/04/17 12:11 103 154/70 05/04/17 12:00 98.2 102 28 153/68 (96) 94 05/04/17 12:00 102 05/04/17 10:00 102 I/O 05/04/17 05/04/17 05/04/17 05/05/17 05/05/17 05/05/17 07:00 15:00 23:00 07:00 15:00 23:00 Intake Total 1240 ml 240 ml 1210 ml 896 ml Balance 1240 ml 240 ml 1210 ml 896 ml Intake Oral 0 ml IV Total 1240 ml 240 ml 1210 ml 896 ml # Voids 4 5 4 # Bowel Movements 0 Result Diagram: 05/04/1753905/04/1740 Objective Remarks GENERAL: in NAD CARDIOVASCULAR: Regular rate and rhythm without murmurs, gallops, or rubs. RESPIRATORY: Breath sounds equal bilaterally. No accessory muscle use. GASTROINTESTINAL: Abdomen soft, non-tender, nondistended. MUSCULOSKELETAL: No cyanosis, or edema. BACK: Nontender without obvious deformity. No CVA tenderness. NEURO: Patient is AAO 3. Cranial 2-12 intact. Sensation and motor grossly intact. Medications and IVs Current Medications IV Flush (NS Flush) 2 ml UNSCH PRN IV FLUSH FLUSH AFTER USING IV ACCESS; Start 05/03/17 at 14:30; Stop 05/03/17 at 18:17; Status DC Sodium Chloride 1,000 ml @ 75 mls/hr [id number] IV Last administered on 06:40; Start 05/03/17 at 16:15 Sodium Chloride (NS Flush) 2 ml UNSCH PRN IV FLUSH FLUSH AFTER USING IV ACCESS ; Start 05/03/17 at 16:15 Sodium Chloride (NS Flush) 2 ml BID IV FLUSH Last administered on 05/05/17 08 :33; Start 05/03/17 at 21:00 Acetaminophen (Tylenol) 650 mg Q4H PRN PO TEMP > 100.4; Start 05/03/17 at 16: 15 Ondansetron HCl (Zofran Inj) 4 mg Q6H PRN IVP NAUSEA OR VOMITING; Start at 16:15 Naloxone HCl (Narcan Inj) 0.4 mg UNSCH PRN IV PUSH SEE LABEL COMMENTS; Start 05/03/17 at 16:15 Senna/Docusate Sodium (Merlene-Colace) 1 tab BID PO Last administered on 08:33; Start 05/03/17 at 21:00 Magnesium Hydroxide (Milk Of Magnesia Liq) 30 ml Q12H PRN PO Mild constipation ; Start 05/03/17 at 16:15 Sennosides (Senokot) 17.2 mg Q12H PRN PO Moderate constipation; Start at 16:15 Bisacodyl (Dulcolax Supp) 10 mg DAILY PRN RECTAL SEVERE CONSITIPATION; Start 05/03/17 at 16:15 Lactulose (Lactulose Liq) 30 ml DAILY PRN PO SEVERE CONSITIPATION; Start 05/03 at 16:15 Ceftriaxone Sodium 1000 mg/ Sodium Chloride 100 ml @ 200 mls/hr Q24H IV Last administered on 05/04/17 15:54; Start 05/03/17 at 17:00 Enalaprilat (Vasotec Inj) 2.5 mg Q6H PRN IV PUSH SBP>150 or DBP>100 Last administered on 05/04/17 21:40; Start 05/03/17 at 17:30 Nicardipine HCl 25 mg/Sodium Chloride 250 ml @ 50 mls/hr TITRATE PRN IV Blood pressure management Last administered on 05/05/17 04:08; Start 05/03/17 at 17 :30 Clonidine (Catapres) 0.1 mg Q6H PRN PO SBP>150 or DBP>100 Last administered on 05/04/17 12:18; Start 05/03/17 at 18:00 Dextrose (D50w (Vial) Inj) 50 ml UNSCH PRN IV PUSH HYPOGLYCEMIA-SEE COMMENTS; Start 05/03/17 at 18:00 Glucagon (Glucagon Inj) 1 mg UNSCH PRN OTHER HYPOGLYCEMIA-SEE COMMENTS; Start 05/03/17 at 18:00 Insulin Aspart (NovoLOG SUPPLEMENTAL SCALE) 1 ACHS SLIDING SCALE SQ Last administered on 05/04/17 21:00; Start 05/03/17 at 21:00 Miscellaneous Information Patient in critical care unit? Ass... Q361D .XX Last administered on 05/03/17 19:30; Start 05/03/17 at 19:30 Chlorhexidine Gluconate (Chlorhexidine 2% Cloth) 3 pack DAILY@04 TOPICAL Last administered on 05/04/17 21:41; Start 05/04/17 at 04:00; Stop 05/08/17 at 04 :01 Chlorhexidine Gluconate (Chlorhexidine 2% Cloth) 3 pack UNSCH PRN TOPICAL HYGIENIC CARE; Start 05/03/17 at 19:30; Stop 05/08/17 at 19:20 Amlodipine Besylate (Norvasc) 5 mg DAILY PO ; Start 05/04/17 at 14:15; Status Cancel Verapamil HCl (Isoptin) 120 mg TID PO Last administered on 05/05/17t 08:33; Start 05/04/17 at 14:30 Influenza Virus Vaccine (Flu (Quadrivalent) Vaccine Inj) 0.5 ml ONCE ONCE IM ; Start 05/05/17 at 10:00; Stop 05/05/17 at 10:01 A/P Assessment and Plan This is a 77 show female with history of hypertension, type II diarrhea diabetes , hypothyroidism, overactive bladder, hyperlipidemia, history of intracranial bleed secondary to trauma who presented with altered mental status Encephalopathy -Symptoms include lethargy, difficulty with memory, generalized weakness -CT scan of the head shows increased hyperdensity of the left occipital horn suggesting intracranial bleed. -UA suggest possible UTI. -See treatment as below. -Neurologist consulted and appreciate assistance of recommendations. Left occipital horn intracranial bleed -Neurosurgeon consulted over the phone by Dr. Cortes in the emergency department. No indication for neurosurgeon consult per Dr. Rosa. -Repeat CT scan the brain stable. -Patient continues to improve. -Recommend cannot take aspirin or any blood thinners. -Consult PT/OT/speech therapist. Hypertensive emergency -Goal blood pressure is less than 150/90. -Patient went back on the Cardene drip. Continue with verapamil and will start lisinopril. Wean off Cardene as tolerated. Hypertension/hypothyroidism/overactive bladder/hyponatremia/type 2 diabetes -She went home medication. -Continues with insulin sliding scale. DVT prophylaxis -SCDs. Chemoprophylaxis contraindicated. Discharge Planning Patient is clinically improving but still on the Cardene drip. Once patient is off the Cardene drip she can be transferred out of the [facility]. Daisy Ayala MD May 05, 2017 09:36
[2017-05-05] MEDS ORDERED: INFLUENZA VIRUS VACCINE (QUADRIVALENT) 0.5 ML SYR IM ONE (10:00)
[2017-05-05] MEDS: LISINOPRIL 20 MG TAB PO SCH (11:20)
[2017-05-05 13:04] LABS: HEMATOCRIT 39.6 % (35.0-46.0); MEAN CELL VOLUME 83.5 FL (80.0-100.0); MEAN CORPUSCULAR HEMOGLOBIN 27.3 PG (27.0-34.0); MEAN CORPUSCULAR HGB CONC 32.8 % (32.0-36.0); PLATELET COUNT 327 TH/MM3 (150-450); RED BLOOD COUNT 4.74 MIL/MM3 (4.00-5.30); RED CELL DISTRIBUTION WIDTH 14.5 % (11.6-17.2); REVIEW FLAG FINAL; WHITE BLOOD COUNT 7.6 TH/MM3 (4.0-11.0)
[2017-05-05 13:41] LABS: BICARBONATE 20.9 MEQ/L (21.0-32.0); POTASSIUM 3.8 MEQ/L (3.5-5.1)
[2017-05-05] MEDS: cefTRIAXone INJ 1,000 MG in SODIUM CHLORIDE 0.9% INJ 100 ML IV SCH (16:47)
[2017-05-06] VITALS (10 sets, daily range): BP systolic 136–147; BP diastolic 69–79; PULSE 90–109; RESP 18–25; TEMP 97.6–98.7; O2SAT 66–98
[2017-05-06] MEDS: niCARdipine INJ 25 MG in SODIUM CHLOR 0.9% 250 ML INJ 240 ML IV PRN (03:10)
[2017-05-06] MEDS: CHLORHEXIDINE GLUCONATE 2 % 1 PACK (2 CLOTHS)(taper/protocol) TOPICAL SCH (04:00)
[2017-05-06 05:54] LABS: HEMATOCRIT 37.8 % (35.0-46.0); MEAN CELL VOLUME 82.5 FL (80.0-100.0); MEAN CORPUSCULAR HEMOGLOBIN 27.7 PG (27.0-34.0); MEAN CORPUSCULAR HGB CONC 33.5 % (32.0-36.0); PLATELET COUNT 293 TH/MM3 (150-450); RED BLOOD COUNT 4.58 MIL/MM3 (4.00-5.30); RED CELL DISTRIBUTION WIDTH 14.7 % (11.6-17.2); REVIEW FLAG FINAL; WHITE BLOOD COUNT 7.3 TH/MM3 (4.0-11.0)
[2017-05-06] MEDS: SODIUM CHLOR 0.45% 1000 ML INJ 1,000 ML IV SCH ×2 (06:11→10:55)
[2017-05-06 06:23] LABS: BICARBONATE 22.6 MEQ/L (21.0-32.0); POTASSIUM 3.9 MEQ/L (3.5-5.1)
[2017-05-06] MEDS: LISINOPRIL 20 MG TAB PO SCH (09:02)
[2017-05-06] MEDS: VERAPAMIL HCL 120 MG TAB PO SCH ×3 (09:02→17:20)
[2017-05-06] MEDS: DOCUSATE SODIUM 50 MG/SENNA 8.6 MG TAB PO SCH ×2 (09:02→21:00)
[2017-05-06] MEDS: SODIUM CHLORIDE 0.9% FLUSH 10 ML FLUSH IV FLUSH SCH ×2 (09:02→20:59)
[2017-05-06] MEDS: INSULIN ASPART SUPPLEMENTAL SCALE SQ SCH ×4 (09:03→21:00)
--- NOTE | 2017-05-06 10:15 | HHI.PR ---
Subjective Remarks Follow-up for intracranial bleeding and hypertension Patient is AAO 3. She did with full name, location and the name hospital, and date. She stated that she feels a lot better. Her nurse had no issues. Patient continues to be on the Cardene drip at 5 her systolic blood pressure is in the 120s to 130s. Patient's nurse Tenisha was told to stop the Cardene drip at the bedside. Patient states she coughed today and had a brief episode back pain. This is into the back pain she had prior. She has no complaint of it today. I ran into patient's and son in the hallway and they felt like patient was doing a lot better. He is also requesting that patient go to SNF because she is not to ambulate and is very weak. Otherwise no acute events. Objective Vitals Vital Signs Date Time Temp Pulse Resp B/P (MAP) Pulse Ox O2 Delivery O2 Flow Rate FiO2 05/06/17 08:00 98.4 100 23 146/70 (95) 98 05/06/17 06:00 94 05/06/17 04:00 99 05/06/17 04:00 98.3 99 25 137/70 (92) 94 05/06/17 03:10 118 155/70 05/06/17 02:00 109 05/06/17 00:00 91 05/06/17 00:00 98.2 91 19 144/69 (94) 66 05/05/17 22:00 83 05/05/17 20:00 85 05/05/17 20:00 98.0 85 23 129/57 (81) 99 05/05/17 19:30 100 141/65 05/05/17 18:00 93 05/05/17 16:00 86 05/05/17 16:00 98.2 86 25 145/68 (93) 97 05/05/17 14:00 85 05/05/17 12:35 96 124/61 05/05/17 12:00 98.0 98 50 128/60 (82) 96 05/05/17 12:00 98 I/O 05/05/17 05/05/17 05/05/17 05/06/17 05/06/17 05/06/17 07:00 15:00 23:00 07:00 15:00 23:00 Intake Total 896 ml 240 ml 2282 ml 1584 ml Output Total 1550 ml Balance 896 ml 240 ml 2282 ml 34 ml Intake Oral 1000 ml 250 ml IV Total 896 ml 240 ml 1282 ml 1334 ml Output Urine Total 1550 ml # Voids 4 6 Result Diagram: 05/06/1752305/06/17523 Imaging Last Impressions Head CT 05/04/17 0600 Signed Impressions: Service Date/Time: Thursday, May 04, 2017 04:39 - CONCLUSION: 1. Cerebral atrophy and chronic ischemic small vessel vasculopathy. 2. Minimal intraventricular hemorrhage. Bruno Bay MD Chest X-Ray 05/03/17 1422 Signed Impressions: Service Date/Time: Wednesday, May 03, 2017 14:40 - CONCLUSION: No acute disease. Abdiel Fisher Jr., MD Objective Remarks GENERAL: in NAD CARDIOVASCULAR: Regular rate and rhythm without murmurs, gallops, or rubs. RESPIRATORY: Breath sounds equal bilaterally. No accessory muscle use. GASTROINTESTINAL: Abdomen soft, non-tender, nondistended. MUSCULOSKELETAL: No cyanosis, or edema. BACK: Nontender without obvious deformity. No CVA tenderness. NEURO: Patient is AAO 3. Cranial 2-12 intact. Sensation and motor grossly intact. Medications and IVs Current Medications IV Flush (NS Flush) 2 ml UNSCH PRN IV FLUSH FLUSH AFTER USING IV ACCESS; Start 05/03/17 at 14:30; Stop 05/03/17 at 18:17; Status DC Sodium Chloride 1,000 ml @ 75 mls/hr [id number] IV Last administered on 06:11; Start 05/03/17 at 16:15 Sodium Chloride (NS Flush) 2 ml UNSCH PRN IV FLUSH FLUSH AFTER USING IV ACCESS ; Start 05/03/17 at 16:15 Sodium Chloride (NS Flush) 2 ml BID IV FLUSH Last administered on 05/06/17 09 :02; Start 05/03/17 at 21:00 Acetaminophen (Tylenol) 650 mg Q4H PRN PO TEMP > 100.4 Last administered on 16:48; Start 05/03/17 at 16:15 Ondansetron HCl (Zofran Inj) 4 mg Q6H PRN IVP NAUSEA OR VOMITING; Start at 16:15 Naloxone HCl (Narcan Inj) 0.4 mg UNSCH PRN IV PUSH SEE LABEL COMMENTS; Start 05/03/17 at 16:15 Senna/Docusate Sodium (Merlene-Colace) 1 tab BID PO Last administered on 09:02; Start 05/03/17 at 21:00 Magnesium Hydroxide (Milk Of Magnesia Liq) 30 ml Q12H PRN PO Mild constipation ; Start 05/03/17 at 16:15 Sennosides (Senokot) 17.2 mg Q12H PRN PO Moderate constipation; Start at 16:15 Bisacodyl (Dulcolax Supp) 10 mg DAILY PRN RECTAL SEVERE CONSITIPATION; Start 05/03/17 at 16:15 Lactulose (Lactulose Liq) 30 ml DAILY PRN PO SEVERE CONSITIPATION; Start 05/03 at 16:15 Ceftriaxone Sodium 1000 mg/ Sodium Chloride 100 ml @ 200 mls/hr Q24H IV Last administered on 05/05/17 16:47; Start 05/03/17 at 17:00 Enalaprilat (Vasotec Inj) 2.5 mg Q6H PRN IV PUSH SBP>150 or DBP>100 Last administered on 05/04/17 21:40; Start 05/03/17 at 17:30 Nicardipine HCl 25 mg/Sodium Chloride 250 ml @ 50 mls/hr TITRATE PRN IV Blood pressure management Last administered on 05/06/17 03:10; Start 05/03/17 at 17 :30 Clonidine (Catapres) 0.1 mg Q6H PRN PO SBP>150 or DBP>100 Last administered on 05/04/17 12:18; Start 05/03/17 at 18:00 Dextrose (D50w (Vial) Inj) 50 ml UNSCH PRN IV PUSH HYPOGLYCEMIA-SEE COMMENTS; Start 05/03/17 at 18:00 Glucagon (Glucagon Inj) 1 mg UNSCH PRN OTHER HYPOGLYCEMIA-SEE COMMENTS; Start 05/03/17 at 18:00 Insulin Aspart (NovoLOG SUPPLEMENTAL SCALE) 1 ACHS SLIDING SCALE SQ Last administered on 05/06/17 09:03; Start 05/03/17 at 21:00 Miscellaneous Information Patient in critical care unit? Ass... Q361D .XX Last administered on 05/03/17 19:30; Start 05/03/17 at 19:30 Chlorhexidine Gluconate (Chlorhexidine 2% Cloth) 3 pack DAILY@04 TOPICAL Last administered on 05/06/17 04:00; Start 05/04/17 at 04:00; Stop 05/08/17 at 04 :01 Chlorhexidine Gluconate (Chlorhexidine 2% Cloth) 3 pack UNSCH PRN TOPICAL HYGIENIC CARE; Start 05/03/17 at 19:30; Stop 05/08/17 at 19:20 Amlodipine Besylate (Norvasc) 5 mg DAILY PO ; Start 05/04/17 at 14:15; Status Cancel Verapamil HCl (Isoptin) 120 mg TID PO Last administered on 05/06/17 09:02; Start 05/04/17 at 14:30 Influenza Virus Vaccine (Flu (Quadrivalent) Vaccine Inj) 0.5 ml ONCE ONCE IM Last administered on 05/05/17 11:22; Start 05/05/17 at 10:00; Stop 05/05/17 at 10:01; Status DC Lisinopril (Prinivil) 20 mg DAILY PO Last administered on 05/06/17 09:02; Start 05/05/17 at 11:00 A/P Assessment and Plan This is a 77 show female with history of hypertension, type II diarrhea diabetes , hypothyroidism, overactive bladder, hyperlipidemia, history of intracranial bleed secondary to trauma who presented with altered mental status Encephalopathy -Improving daily. -Symptoms include lethargy, difficulty with memory, generalized weakness -CT scan of the head shows increased hyperdensity of the left occipital horn suggesting intracranial bleed. -Patient is currently being treated for UTI. -See treatment as below. -Neurologist consulted and appreciate assistance of recommendations. Left occipital horn intracranial bleed -Neurosurgeon consulted over the phone by Dr. Cortes in the emergency department. No indication for neurosurgeon consult per Dr. Rosa. -Repeat CT scan the brain stable. -Patient continues to improve. -Recommend cannot take aspirin or any blood thinners. -Once patient is medically stable she wouldn't need to go to a SNF. She was a ready evaluated by therapist. Hypertensive emergency -Goal blood pressure is less than 150/90. -Cardizem drip can be DC'd since her blood pressure is around 120s -130 systolic. Continue lisinopril and verapamil and will add 10 mg of lisinopril at night. Patient already has when necessary Vasotec and clonidine as needed. Hypertension/hypothyroidism/overactive bladder/hyponatremia/type 2 diabetes -She went home medication. -Continues with insulin sliding scale. DVT prophylaxis -SCDs. Chemoprophylaxis contraindicated. Discharge Planning Patient is medically stable to be transferred out [facility] the [facility]. Anticipate discharge to SNF in 1-2 days. Daisy Ayala MD May 06, 2017 10:15
[2017-05-06] MEDS ORDERED: metFORMIN HCL 500 MG TAB PO ONE (10:30)
[2017-05-06] MEDS: AMOXICILLIN/CLAVULANATE K 875 MG TAB PO SCH ×2 (12:53→20:52)
[2017-05-06] MEDS: metFORMIN HCL 500 MG TAB PO SCH (17:20)
[2017-05-06] MEDS: LISINOPRIL 10 MG TAB PO SCH (20:52)
[2017-05-07] MEDS: SODIUM CHLOR 0.45% 1000 ML INJ 1,000 ML IV SCH ×2 (00:15→13:08)
[2017-05-07] MEDS: CHLORHEXIDINE GLUCONATE 2 % 1 PACK (2 CLOTHS)(taper/protocol) TOPICAL SCH (04:00)
[2017-05-07 04:45] VITALS: BP 125/69; PULSE 80; RESP 21; TEMP 98.2; O2SAT 98
[2017-05-07] MEDS: LEVOTHYROXINE SODIUM 125 MCG TAB PO SCH (06:14)
[2017-05-07 08:00] VITALS: BP 152/84; PULSE 94; RESP 16; TEMP 97.7; O2SAT 97
[2017-05-07 08:03] VITALS: PULSE 92
[2017-05-07] MEDS: INSULIN ASPART SUPPLEMENTAL SCALE SQ SCH ×4 (08:15→22:00)
[2017-05-07] MEDS: LISINOPRIL 20 MG TAB PO SCH (08:17)
[2017-05-07] MEDS: AMOXICILLIN/CLAVULANATE K 875 MG TAB PO SCH ×2 (08:17→20:19)
[2017-05-07] MEDS: SODIUM CHLORIDE 0.9% FLUSH 10 ML FLUSH IV FLUSH SCH ×2 (08:17→20:19)
[2017-05-07] MEDS: OXYBUTYNIN CHLORIDE 5 MG TAB PO SCH (08:18)
[2017-05-07] MEDS: DOCUSATE SODIUM 50 MG/SENNA 8.6 MG TAB PO SCH ×2 (08:18→20:19)
[2017-05-07] MEDS: VERAPAMIL HCL 120 MG TAB PO SCH ×3 (08:18→17:07)
[2017-05-07] MEDS: metFORMIN HCL 500 MG TAB PO SCH ×2 (08:18→17:06)
[2017-05-07 12:00] VITALS: BP 142/79; PULSE 91; RESP 17; TEMP 98.1; O2SAT 95
--- NOTE | 2017-05-07 14:27 | HHI.PR ---
Subjective Remarks Follow-up encephalopathy, intracranial bleed. The patient reports sciatica pain which radiates down both legs. Denies chest pain or dyspnea. No headache or vision changes. Objective Vitals Vital Signs Date Time Temp Pulse Resp B/P (MAP) Pulse Ox O2 Delivery O2 Flow Rate FiO2 05/07/17 12:00 98.1 91 17 142/79 (100) 95 05/07/17 08:03 92 05/07/17 08:00 97.7 94 16 152/84 (106) 97 05/07/17 04:45 98.2 80 21 125/69 (87) 98 05/06/17 21:00 98.7 92 19 136/70 (92) 98 05/06/17 19:14 98 05/06/17 17:37 98.2 98 18 147/76 (99) 98 I/O 05/06/17 05/06/17 05/06/17 05/07/17 05/07/17 05/07/17 07:00 15:00 23:00 07:00 15:00 23:00 Intake Total 1584 ml 625 ml 450 ml 1000 ml Output Total 1550 ml Balance 34 ml 625 ml 450 ml 1000 ml Intake Oral 250 ml 625 ml 450 ml IV Total 1334 ml 1000 ml Output Urine Total 1550 ml # Voids 1 2 # Bowel Movements 3 2 Result Diagram: 05/06/1752305/06/17 05 Imaging Last Impressions Head CT 05/04/17 0600 Signed Impressions: Service Date/Time: Thursday, May 04, 2017 04:39 - CONCLUSION: 1. Cerebral atrophy and chronic ischemic small vessel vasculopathy. 2. Minimal intraventricular hemorrhage. Bruno Bay MD Chest X-Ray 05/03/17 7102 Signed Impressions: Service Date/Time: Wednesday, May 03, 2017 14:40 - CONCLUSION: No acute disease. Abdiel Fisher Jr., MD Objective Remarks General: Elderly female in no acute distress. Heart: Regular rate and rhythm. No murmur. Lungs: Clear to auscultation bilaterally. No wheezes, rales, or rhonchi. Breathing is nonlabored. Abdomen: Soft, nontender, nondistended. Extremities: No lower extremity edema. Psych: Alert and oriented. Procedures None Urinary Catheter: No Vascular Central Line Catheter: No A/P Assessment and Plan 1. Encephalopathy: Mental status has improved. Patient presented lethargy, memory loss, weakness. Continue antibiotics for UTI. Appreciate neurology recommendations. 2. Left occipital horn intracranial bleed: ER physician spoke with the neurosurgeon on-call, stated that there was no indication for a neurosurgery consult at that time. Repeat head CT is stable. Avoid aspirin, anticoagulation. 3. Hypertension: Blood pressure much improved. Continue lisinopril, verapamil. 4. Hypothyroidism: Continue Synthroid. 5. Diabetes mellitus: Monitor Accu-Cheks and cover with sliding scale insulin. 6. DVT prophylaxis: SCDs. Chemical prophylaxis contraindicated. 7. Sciatica: We'll give a short burst of steroids. Discharge Planning Possible discharge to SNF tomorrow. Jalil Altman MD May 07, 2017 14:27
[2017-05-07] MEDS: predniSONE 20 MG TAB PO SCH (14:50)
[2017-05-07 16:00] VITALS: BP 138/80; PULSE 86; RESP 17; TEMP 98.2; O2SAT 96
[2017-05-07] MEDS: LISINOPRIL 10 MG TAB PO SCH (20:19)
[2017-05-07 21:08] VITALS: BP 154/77; PULSE 87; RESP 18; TEMP 98.6; O2SAT 98
[2017-05-08] VITALS (9 sets, daily range): BP systolic 132–170; BP diastolic 74–90; PULSE 86–98; RESP 18–20; TEMP 97.5–98.9; O2SAT 96–98
[2017-05-08] MEDS: ENALAPRILAT 2.5 MG/2 ML VIAL IV PUSH PRN ×2 (00:30→06:25)
[2017-05-08] MEDS: CHLORHEXIDINE GLUCONATE 2 % 1 PACK (2 CLOTHS)(taper/protocol) TOPICAL SCH (04:00)
[2017-05-08] MEDS: LEVOTHYROXINE SODIUM 125 MCG TAB PO SCH (06:25)
[2017-05-08] MEDS: DOCUSATE SODIUM 50 MG/SENNA 8.6 MG TAB PO SCH (09:00)
[2017-05-08] MEDS: SODIUM CHLORIDE 0.9% FLUSH 10 ML FLUSH IV FLUSH SCH ×2 (09:00→20:22)
[2017-05-08] MEDS: INSULIN ASPART SUPPLEMENTAL SCALE SQ SCH ×4 (09:00→21:21)
[2017-05-08] MEDS: LISINOPRIL 20 MG TAB PO SCH (09:01)
[2017-05-08] MEDS: AMOXICILLIN/CLAVULANATE K 875 MG TAB PO SCH ×2 (09:01→20:22)
[2017-05-08] MEDS: predniSONE 20 MG TAB PO SCH (09:02)
[2017-05-08] MEDS: OXYBUTYNIN CHLORIDE 5 MG TAB PO SCH (09:02)
[2017-05-08] MEDS: VERAPAMIL HCL 120 MG TAB PO SCH ×3 (09:02→17:25)
[2017-05-08] MEDS: metFORMIN HCL 500 MG TAB PO SCH ×2 (09:05→17:25)
[2017-05-08] MEDS ORDERED: AMOX875T2 PO (11:29)
[2017-05-08] MEDS ORDERED: LISI10TA3 PO (11:29)
[2017-05-08] MEDS ORDERED: PRED20 PO (11:29)
--- NOTE | 2017-05-08 11:30 | HHI.DCPOC ---
Discharge Care Plan Diagnosis: (1) Encephalopathy (2) Weakness generalized (3) Intraventricular hemorrhage (4) Subdural bleeding Goals to Promote Your Health * To prevent worsening of your condition and complications * To maintain your health at the optimal level Directions to Meet Your Goals Take your medications as prescribed Follow your dietary instruction Follow activity as directed Keep your appointments as scheduled Take your immunizations and boosters as scheduled If your symptoms worsen call your PCP, if no PCP go to Urgent Care Center or Emergency Room Smoking is Dangerous to Your Health. Avoid second hand smoke Call the 24-hour hour crisis hotline for domestic abuse at Jalil Altman MD May 08, 2017 11:30
--- NOTE | 2017-05-08 11:34 | HHI.DS ---
Discharge Summary Admission Date May 03, 2017 at 16:19 Discharge Date: May 08, 2017 Admitting Diagnosis interventricular hemorrhage (1) Intraventricular hemorrhage ICD Code: I61.5 - Nontraumatic intracerebral hemorrhage, intraventricular Status: Acute (2) Weakness generalized ICD Code: R53.1 - Weakness Status: Acute (3) Encephalopathy ICD Code: G93.40 - Encephalopathy, unspecified (4) Subdural bleeding ICD Code: I62.00 - Nontraumatic subdural hemorrhage, unspecified Status: Acute Procedures None Brief History - From Admission This is a 77 y/o female past medical history of prior intracranial bleed secondary to trauma one year ago, hypertension, type 2 diabetes, hypothyroidism , overactive bladder, and hyperlipidemia who presented with lethargy, memory loss, altered mental status, and generalized weakness. Patient due to current illness is of poor historian prior was very sharp and able to give a history without any difficulty. Patient's is at the bedside and history is obtained from the . stated that 11 days ago patient had lower abdominal pain in which he brought his to the emergency department. He stated patient had a full workup including CT scan abdomen which were all negative so patient was sent home. Patient then saw her primary care physician 2 days later in which she was told to stop her oral hypoglycemic medication. Patient continues to decline in regards to memory loss, difficulty finding words , altered mental status, lethargy and generalized weakness. Patient also didn' t develop a headache in which gave a full dose of aspirin 325 mg. He also stated that patient takes aspirin 81 mg daily due to her age and as preventive measure. Patient does not take any other blood thinners. She denies any trauma or falls. stated since her symptoms worsen it was similar to when she had prior intracranial bleed he went pop patient to the emergency department. Patient also complained about increased urinary frequency today. She denies any dysuria. Patient able to tell me her first and last name, she knew she was in the hospital but she was in [place], able to give a month but not year. Per patient's this is not her baseline. Patient was seen on the fifth floor and nurse was at the bedside during part of the interview. When nurse was doing her assessment and obtain her blood pressure systolic blood pressure was 202. I told the charge nurse and patient' s nurse that patient needs to go to intensive care unit stat so that blood pressure can be tightly control especially since patient has intracranial bleed. Symptoms were the same. Her systolic blood pressure in the emergency department was running in the 140s. In the ED Dr. Cortes spoke to neurosurgeon Dr. Rosa in regards to results and he stated that from his standpoint he does not need to be consulted and there is not any intervention that he can do and recommends a repeat CT scan of the head tomorrow morning. All other review of systems reviewed and negative. CBC/BMP: 05/06/17 0524 05/06/17 05 Significant Findings Laboratory Tests Test 05/05/17 12:03 05/06/17 05:24 Random Glucose 302 MG/DL (74-106) 249 MG/DL (74-106) Sodium Level 130 MEQ/L (136-145) 134 MEQ/L (136-145) Carbon Dioxide Level 20.9 MEQ/L (21.0-32.0) Estimat Glomerular Filtration Rate 59 ML/MIN (>89) Imaging Last Impressions Head CT 05/04/17 0600 Signed Impressions: Service Date/Time: Thursday, May 04, 2017 04:39 - CONCLUSION: 1. Cerebral atrophy and chronic ischemic small vessel vasculopathy. 2. Minimal intraventricular hemorrhage. Bruno Bay MD Chest X-Ray 05/03/17 1422 Signed Impressions: Service Date/Time: Wednesday, May 03, 2017 14:40 - CONCLUSION: No acute disease. Abdiel Fisher Jr., MD PE at Discharge General: Elderly female in no acute distress. Heart: Regular rate and rhythm. No murmur. Lungs: Clear to auscultation bilaterally. No wheezes, rales, or rhonchi. Breathing is nonlabored. Abdomen: Soft, nontender, nondistended. Extremities: No lower extremity edema. Psych: Alert and oriented. Pt update on day of discharge The patient states that she feels much better today. Back and leg pain is improved while at rest; still painful with activity. No chest pain, dyspnea. No abdominal pain. Wants to go to rehab. Hospital Course The patient was admitted for further evaluation of altered mental status, generalized weakness. She was found to have left occipital horn intracranial bleed. Neurosurgeon concrete pouring supervisor was contacted by the ER physician who indicated no need for neurosurgery consult. Repeat CT showed no change. Neuro checks were monitored. Patient's neurologic status improved throughout the hospitalization. Her mental status returned to her baseline. The patient developed significantly elevated blood pressure. She was placed on Cardene drip and monitored in the intensive care unit. She was weaned off of the drip and her oral antihypertensive medications were adjusted. Blood pressure did improve. Physical therapy was continued. The patient developed worsening sciatica pain area she was given a short course of steroids. She did have improvement in the pain. She was felt to be stable for discharge to SNF. Pt Condition on Discharge: Stable Discharge Disposition: Discharge to SNF Discharge Time: > 30 minutes Discharge Instructions DIET: Follow Instructions for: Heart Healthy Diet, Diabetic Diet Activities you can perform: See Additionl Instruction Other Activity Instructions: with assistance Follow up Referrals: Neurology - 1 Week with Festus Man MD PCP Follow-up - 2 Weeks New Medications: Amoxicillin-Clavulanate (Amoxicillin-Clavulanate) 875-125 mg Tab 875 MG PO Q12HR for Infection, #6 TAB 0 Refills not for use in CrCl <30 mL/minute Lisinopril (Lisinopril) 10 Mg Tab 10 MG PO DAILY@2000 for Blood Pressure Management, #30 TAB 0 Refills Prednisone (Prednisone) 20 Mg Tab 20 MG PO DAILY for Inflammation, #2 TAB 0 Refills Continued Medications: Glipizide (Glipizide) 5 Mg Tab 5 MG PO HS for Blood Sugar Management, #30 TAB 0 Refills Take 30 minutes before a meal Levothyroxine (Levothyroxine) 125 Mcg Tab 125 MCG PO DAILY for Thyroid, #30 TAB 0 Refills Lisinopril (Lisinopril) 20 Mg Tab 20 MG PO DAILY, #30 TAB 0 Refills Metformin (Metformin) 1,000 Mg Tab 1000 MG PO BID for Blood Sugar Management, #60 TAB 0 Refills With meals Oxybutynin (Ditropan) 5 Mg Tab 5 MG PO DAILY for Urinary Symptom Managemen, #90 TAB 0 Refills Verapamil (Verapamil) 120 Mg Tab 120 MG PO TID, #60 TAB 0 Refills Discontinued Medications: Glipizide (Glipizide) 10 Mg Tab 10 MG PO DAILY for Blood Sugar Management, #30 TAB 0 Refills Take 30 minutes before a meal Metformin (Metformin) 500 Mg Tab 500 MG PO HS for Blood Sugar Management, #60 TAB 0 Refills With meals Jalil Altman MD May 08, 2017 11:34
--- NOTE | 2017-05-08 13:54 | HHI.PR ---
Subjective Remarks Follow up intracranial hemorrhage, sciatica. Patient states that she feels much better today. Leg/back pain is improved, but worsens with activity. No chest pain, dizziness. Objective Vitals Vital Signs Date Time Temp Pulse Resp B/P (MAP) Pulse Ox O2 Delivery O2 Flow Rate FiO2 05/08/17 12:00 97.7 91 19 132/74 (93) 96 05/08/17 08:02 93 05/08/17 08:00 97.9 91 19 163/85 (111) 96 05/08/17 06:00 98.5 89 18 161/90 (113) 98 05/08/17 03:29 86 05/08/17 01:00 97.5 98 18 170/84 (112) 98 05/07/17 21:08 98.6 87 18 154/77 (102) 98 05/07/17 16:00 98.2 86 17 138/80 (99) 96 I/O 05/07/17 05/07/17 05/07/17 05/08/17 05/08/17 05/08/17 07:00 15:00 23:00 07:00 15:00 23:00 Intake Total 450 ml 1480 ml 184 ml 240 ml Balance 450 ml 1480 ml 184 ml 240 ml Intake Oral 450 ml 480 ml IV Total 1000 ml 184 ml 240 ml # Voids 2 3 3 # Bowel Movements 2 1 2 Result Diagram: 05/06/17 0524 05/06/17 0524 Imaging Last Impressions Head CT 05/04/17 0600 Signed Impressions: Service Date/Time: Thursday, May 04, 2017 04:39 - CONCLUSION: 1. Cerebral atrophy and chronic ischemic small vessel vasculopathy. 2. Minimal intraventricular hemorrhage. Bruno Bay MD Chest X-Ray 05/03/17 1422 Signed Impressions: Service Date/Time: Wednesday, May 03, 2017 14:40 - CONCLUSION: No acute disease. Abdiel Fisher Jr., MD Objective Remarks General: Elderly female in no acute distress. Heart: Regular rate and rhythm. No murmur. Lungs: Clear to auscultation bilaterally. No wheezes, rales, or rhonchi. Breathing is nonlabored. Abdomen: Soft, nontender, nondistended. Extremities: No lower extremity edema. Psych: Alert and oriented. Procedures None Urinary Catheter: No Vascular Central Line Catheter: No A/P Problem List: (1) Intraventricular hemorrhage ICD Code: I61.5 - Nontraumatic intracerebral hemorrhage, intraventricular Status: Acute (2) Weakness generalized ICD Code: R53.1 - Weakness Status: Acute (3) Encephalopathy ICD Code: G93.40 - Encephalopathy, unspecified (4) Subdural bleeding ICD Code: I62.00 - Nontraumatic subdural hemorrhage, unspecified Status: Acute Assessment and Plan 1. Encephalopathy: Mental status has improved. Patient presented lethargy, memory loss, weakness. Continue antibiotics for UTI. Appreciate neurology recommendations. 2. Left occipital horn intracranial bleed: ER physician spoke with the neurosurgeon on-call, stated that there was no indication for a neurosurgery consult at that time. Repeat head CT is stable. Avoid aspirin, anticoagulation. 3. Hypertension: Blood pressure much improved. Continue lisinopril, verapamil. 4. Hypothyroidism: Continue Synthroid. 5. Diabetes mellitus: Monitor Accu-Cheks and cover with sliding scale insulin. 6. DVT prophylaxis: SCDs. Chemical prophylaxis contraindicated. 7. Sciatica: Improving. Continue short course of prednisone. Discharge Planning Discharge to SNF when arrangements are made. Awaiting insurance authorization, which cannot happen until tomorrow. Jalil Altman MD May 08, 2017 13:54
[2017-05-08] MEDS: LISINOPRIL 10 MG TAB PO SCH (20:22)
[2017-05-09] MEDS: cloNIDine HCL 0.1 MG TAB PO PRN (00:24)
[2017-05-09 01:11] VITALS: BP 169/82; PULSE 90; RESP 20; TEMP 97.4; O2SAT 96
[2017-05-09 06:11] VITALS: BP 156/76; PULSE 90
[2017-05-09] MEDS: LEVOTHYROXINE SODIUM 125 MCG TAB PO SCH (06:11)
[2017-05-09] MEDS: ENALAPRILAT 2.5 MG/2 ML VIAL IV PUSH PRN (06:11)
--- NOTE | 2017-05-09 08:35 | HHI.PR ---
Review/Management Daily Summary 05/09 doing well neuro pending rehab alert and oriented, moves 4 limbs well will run ct head f/u before d/c to ascertain stability of small bleed Subjective Subjective Comments No acute events reported No headache Active Medications Current Medications Medications (Trade) Dose Ordered Sig/Javier Route Start Time Stop Time Status Last Admin (NS Flush) 2 ml UNSCH PRN IV FLUSH 05/03/17 16:15 (NS Flush) 2 ml BID IV FLUSH 05/03/17 21:00 05/08/17 20:22 (Tylenol) 650 mg Q4H PRN PO 05/03/17 16:15 05/05/17 16:48 (Zofran Inj) 4 mg Q6H PRN IVP 05/03/17 16:15 (Narcan Inj) 0.4 mg UNSCH PRN IV PUSH 05/03/17 16:15 (Milk Of Magnesia Liq) 30 ml Q12H PRN PO 05/03/17 16:15 (Senokot) 17.2 mg Q12H PRN PO 05/03/17 16:15 (Dulcolax Supp) 10 mg DAILY PRN RECTAL 05/03/17 16:15 (Lactulose Liq) 30 ml DAILY PRN PO 05/03/17 16:15 (Vasotec Inj) 2.5 mg Q6H PRN IV PUSH 05/03/17 17:30 05/09/17 06:11 (Catapres) 0.1 mg Q6H PRN PO 05/03/17 18:00 05/09/17 00:24 (D50w (Vial) Inj) 50 ml UNSCH PRN IV PUSH 05/03/17 18:00 (Glucagon Inj) 1 mg UNSCH PRN OTHER 05/03/17 18:00 (NovoLOG SUPPLEMENTAL SCALE) 1 ACHS SLIDING SCALE SQ 05/03/17 21:00 05/08/17 21:21 Miscellaneous Information Patient in critical care unit? Ass... Q361D .XX 05/03/17 19:30 05/03/17 19:30 (Isoptin) 120 mg TID PO 05/04/17 14:30 05/08/17 17:25 (Prinivil) 20 mg DAILY PO 05/05/17 11:00 05/08/17 09:01 (Prinivil) 10 mg DAILY@2000 PO 05/06/17 20:00 05/08/17 20:22 (Augmentin) 875 mg Q12HR PO 05/06/17 10:30 05/08/17 20:22 (Synthroid) 125 mcg DAILY@0600 PO 05/07/17 06:00 05/09/17 06:11 (Glucophage) 1,000 mg BID@0900,1800 PO 05/06/17 18:00 05/08/17 17:25 (Ditropan) 5 mg DAILY PO 05/07/17 09:00 05/08/17 09:02 (Deltasone) 20 mg DAILY PO 05/07/17 14:30 05/10/17 14:29 05/08/17 09:02 Allergies Allergies Coded Allergies No Known Allergies ([id number]/24/17) Exam I&O / VS Vital Signs Date Time Temp Pulse Resp B/P (MAP) Pulse Ox O2 Delivery O2 Flow Rate FiO2 05/09/17 06:11 90 156/76 (102) 05/09/17 01:11 97.4 90 20 169/82 (111) 96 05/08/17 21:33 98.9 98 20 150/82 (104) 96 05/08/17 20:00 96 05/08/17 16:00 98.1 86 18 143/77 (99) 96 05/08/17 12:00 97.7 91 19 132/74 (93) 96 Objective Micro and Labs Date/Time Source Procedure Growth Status 05/03/17 14:45 Urine Catheterized Urine Urine Culture - Final Proteus Mirabilis Complete Festus Man MD May 09, 2017 08:35
[2017-05-09] MEDS: INSULIN ASPART SUPPLEMENTAL SCALE SQ SCH ×3 (09:00→17:00)
[2017-05-09 09:15] VITALS: BP 141/75; PULSE 85; RESP 18; TEMP 98.4; O2SAT 95
[2017-05-09 09:19] VITALS: PULSE 81
[2017-05-09] MEDS: predniSONE 20 MG TAB PO SCH (09:37)
[2017-05-09] MEDS: metFORMIN HCL 500 MG TAB PO SCH (09:37)
[2017-05-09] MEDS: SODIUM CHLORIDE 0.9% FLUSH 10 ML FLUSH IV FLUSH SCH (09:37)
[2017-05-09] MEDS: AMOXICILLIN/CLAVULANATE K 875 MG TAB PO SCH (09:38)
[2017-05-09] MEDS: LISINOPRIL 20 MG TAB PO SCH (09:38)
[2017-05-09] MEDS: OXYBUTYNIN CHLORIDE 5 MG TAB PO SCH (09:38)
[2017-05-09] MEDS: VERAPAMIL HCL 120 MG TAB PO SCH ×2 (09:38→12:35)
--- NOTE | 2017-05-09 09:50 | RADRPT ---
EXAM DATE/TIME: 05/09/2017 09:13 [facility] COMPARISON: CT BRAIN W/O CONTRAST, July 10, 2016, 5:37. CT BRAIN W/O CONTRAST, July 07, 2016, 17:13. CT BRAIN W/O CONTRAST, May 03, 2017, 15:09. CT BRAIN W/O CONTRAST, May 04, 2017, 4:39. INDICATIONS : Follow up bleed RADIATION DOSE: 56.35 CTDIvol (mGy) MEDICAL HISTORY : Hypertension. Diabetes mellitus type 2. SURGICAL HISTORY : None. ENCOUNTER: Initial ACUITY: 2 days PAIN SCALE: 0/10 LOCATION: cranial TECHNIQUE: Multiple contiguous axial images were obtained of the head. Using automated exposure control and adj ustment of the mA and/or kV according to patient size, radiation dose was kept as low as reasonably a chievable to obtain optimal diagnostic quality images. DICOM format image data is available electro nically for review and comparison. FINDINGS: CEREBRUM: Ventricles remain prominent. The small amount of intraventricular blood has resolved. Moderate sondra ventricular white matter changes are noted. There are no extra-axial fluid collections appreciated. POSTERIOR FOSSA: The cerebellum and brainstem are intact. The 4th ventricle is midline. The cerebellopontine angle i s unremarkable. EXTRACRANIAL: The visualized portion of the orbits is intact. SKULL: The calvaria is intact. No evidence of skull fracture. CONCLUSION: Ventricles are prominent including third ventricle these are stable in the interval. He small amount of intraventricular hemorrhage has resolved. Compared to 07/10/16 ventricular megaly has progressed . Difficult to tell whether this is atrophy or hydrocephalus. Ralph Rosario MD FACR on May 09, 2017 at 9:45 Board Certified Radiologist. This report was verified electronically.
[2017-05-09 12:36] VITALS: BP 135/85; PULSE 98; RESP 18; TEMP 97.6; O2SAT 97
--- NOTE | 2017-05-09 14:38 | HHI.PR ---
Subjective Remarks Follow up intracranial bleed. The patient states that she feels much better, "more like myself". Ready to go to rehab. Denies chest pain, dyspnea. Objective Vitals Vital Signs Date Time Temp Pulse Resp B/P (MAP) Pulse Ox O2 Delivery O2 Flow Rate FiO2 05/09/17 12:36 97.6 98 18 135/85 (102) 97 05/09/17 09:19 81 05/09/17 09:15 98.4 85 18 141/75 (97) 95 05/09/17 06:11 90 156/76 (102) 05/09/17 01:11 97.4 90 20 169/82 (111) 96 05/08/17 21:33 98.9 98 20 150/82 (104) 96 05/08/17 20:00 96 05/08/17 16:00 98.1 86 18 143/77 (99) 96 I/O 05/08/17 05/08/17 05/08/17 05/09/17 05/09/17 05/09/17 07:00 15:00 23:00 07:00 15:00 23:00 Intake Total 720 ml Balance 720 ml Intake Oral 480 ml IV Total 240 ml # Voids 3 1 # Bowel Movements 3 1 3 Result Diagram: 05/06/17 0524 05/06/17 0524 Imaging Last Impressions Head CT 05/09/17 0000 Signed Impressions: Service Date/Time: Tuesday, May 09, 2017 09:13 - CONCLUSION: Ventricles are prominent including third ventricle these are stable in the interval. He small amount of intraventricular hemorrhage has resolved. Compared to 07/10/16 ventricular megaly has progressed. Difficult to tell whether this is atrophy or hydrocephalus. Ralph Rosario MD FACR Chest X-Ray 05/03/17 1422 Signed Impressions: Service Date/Time: Wednesday, May 03, 2017 14:40 - CONCLUSION: No acute disease. Abdiel Fisher Jr., MD Objective Remarks General: Elderly female in no acute distress. Heart: Regular rate and rhythm. No murmur. Lungs: Clear to auscultation bilaterally. No wheezes, rales, or rhonchi. Breathing is nonlabored. Abdomen: Soft, nontender, nondistended. Extremities: No lower extremity edema. Psych: Alert and oriented. Procedures None Urinary Catheter: No Vascular Central Line Catheter: No A/P Problem List: (1) Intraventricular hemorrhage ICD Code: I61.5 - Nontraumatic intracerebral hemorrhage, intraventricular Status: Acute (2) Weakness generalized ICD Code: R53.1 - Weakness Status: Acute (3) Encephalopathy ICD Code: G93.40 - Encephalopathy, unspecified (4) Subdural bleeding ICD Code: I62.00 - Nontraumatic subdural hemorrhage, unspecified Status: Acute Assessment and Plan 1. Encephalopathy: Mental status has improved. Patient presented lethargy, memory loss, weakness. Continue antibiotics for UTI. Appreciate neurology recommendations. 2. Left occipital horn intracranial bleed: ER physician spoke with the neurosurgeon on-call, stated that there was no indication for a neurosurgery consult at that time. Repeat head CT done today shows improvement. Avoid aspirin , anticoagulation. 3. Hypertension: Blood pressure much improved. Continue lisinopril, verapamil. 4. Hypothyroidism: Continue Synthroid. 5. Diabetes mellitus: Monitor Accu-Cheks and cover with sliding scale insulin. 6. DVT prophylaxis: SCDs. Chemical prophylaxis contraindicated. 7. Sciatica: Improving. Continue short course of prednisone. Discharge Planning Discharge to SNF. Jalil Altman MD May 09, 2017 14:38
== END 2017-05-09 17:21 | DRG 64 ==
LOC: NEPC 13:50 → NEDA 16:19 → N05A 16:52 → HIME 18:40 → N05B 05-06 11:28
PROVIDERS: ADMIT Family Medicine; ATTEND Family Medicine
DX: I61.5 Nontraumatic intracerebral hemorrhage, intraventricular (principal); G93.40 Encephalopathy, unspecified; E11.9 Type 2 diabetes mellitus without complications; N39.0 Urinary tract infection, site not specified; E87.1 Hypo-osmolality and hyponatremia; I10 Essential (primary) hypertension; B96.4 Proteus (mirabilis) (morganii) as the cause of diseases classified elsewhere; I16.1 Hypertensive emergency; I62.00 Nontraumatic subdural hemorrhage, unspecified; N32.81 Overactive bladder; E03.9 Hypothyroidism, unspecified; E78.5 Hyperlipidemia, unspecified; M54.30 Sciatica, unspecified side; Z79.82 Long term (current) use of aspirin
CPT/HCPCS: 70450; 71010; 76937; 80048; 80053; 81001; 82550; 82948; 84484; 85025; 85027; 85610; 85730; 87077; 87086; 87186; 87641; 90686; 93005; J0696; J1815; J7050; J7512; Q2038